=== PATIENT | female | born 1970 | race Caucasian/White ===

== ENCOUNTER 2016-12-11 02:07 | Inpatient (IN) | payer OTHER ==
--- NOTE | 2016-12-11 02:30 | PDOC ---
History of Present Illness <Pilar Horner - Last Filed: 12/11/16 06:20> - General History Source: Patient Exam Limitations: No Limitations - History of Present Illness Initial Comments: 12/11/16 06:17 The patient is a 46-year-old female with a significant past medical history of breast cancer with metastases to the lungs and liver diagnosed on 05/21/16 ( currently being treated with chemo by Dr. Pelaez at [facility]), and presents to the emergency department with chest pain since 11pm yesterday. She reports she had generalized pain in the thoracic region 2 days ago at 1am. She was given 7.5 mg morphine at the time by her sons for the generalized pain. She reports the chest pain is located in the mid-sternal and epigastric region, and is sharp and severe in nature. She reports mild radiation of the chest pain to her neck, bilateral arms, and abdomen. As per sons, she became agitated when the chest pain started, and they gave her 3.5 mg morphine with no significant relief of pain. The patient denies shortness of breath, headache and dizziness. The patient denies fever, chills, nausea, vomit, diarrhea and constipation. The patient denies dysuria, frequency, urgency and hematuria. Allergies: NKDA Past Surgical History: Brain tumor surgery (2 years ago) Social History: No toxic habits reported <Geri Mott - Last Filed: 12/11/16 06:27> - General Chief Complaint: Chest Pain Stated Complaint: CHEST PAIN Time Seen by Provider: 12/11/16 02:29 Past History <Pilar Horner - Last Filed: 12/11/16 06:20> <Geri Mott - Last Filed: 12/11/16 06:27> - Past Medical History Allergies/Adverse Reactions: Allergies Allergy/AdvReac Type Severity Reaction Status Date / Time No Known Allergies Allergy Unverified 11/18/13 12:30 Review of Systems - Review of Systems Able to Perform ROS?: Yes Comments:: 12/11/16 06:17 CONSTITUTIONAL: Absent: fever, chills, diaphoresis, generalized weakness, malaise, loss of appetite HEENT: Absent: rhinorrhea, nasal congestion, throat pain, throat swelling, difficulty swallowing, mouth swelling, ear pain, eye pain, visual changes CARDIOVASCULAR: Present: (+) chest pain Absent: syncope, palpitations, irregular heart rate, lightheadedness, peripheral edema RESPIRATORY: Absent: cough, shortness of breath, dyspnea with exertion, orthopnea, wheezing, stridor, hemoptysis GASTROINTESTINAL: Present: (+) abdominal pain Absent: abdominal distension, nausea, vomiting, diarrhea, constipation, melena, hematochezia GENITOURINARY: Absent: dysuria, frequency, urgency, hesitancy, hematuria, flank pain, genital pain MUSCULOSKELETAL: Absent: myalgia, arthralgia, joint swelling SKIN: Absent: rash, itching, pallor HEMATOLOGIC/IMMUNOLOGIC: Absent: easy bleeding, easy bruising, lymphadenopathy, frequent infections ENDOCRINE: Absent: unexplained weight gain, unexplained weight loss, heat intolerance, cold intolerance NEUROLOGIC: Absent: headache, focal weakness or paresthesias, dizziness, unsteady gait, seizure, mental status changes, bladder or bowel incontinence PSYCHIATRIC: Absent: anxiety, depression, suicidal or homicidal ideation, hallucinations. <Geri Mott - Last Filed: 12/11/16 06:27> *Physical Exam - Vital Signs Last Vital Signs Temp Pulse Resp BP Pulse Ox 99.9 F H 86 18 107/74 96 12/11/16 02:17 12/11/16 02:17 12/11/16 02:17 12/11/16 02:17 12/11/16 02:17 - Physical Exam Comments: 12/11/16 06:27 GENERAL: Afebrile. Well developed, well nourished. Awake, A&O x3. No acute distress. HEENT: Normocephalic, atraumatic. PERRLA, EOMI. No conjunctival pallor. (+) Icteric sclera. Moist mucous membranes. Oropharynx is clear. (+) Thrush in mouth. NECK: Supple. Full ROM. No JVD. Carotid pulses 2+ and symmetric, without bruits. No thyromegaly. No lymphadenopathy. CARDIOVASCULAR: (+) Tachycardic. Regular rhythm. No murmurs, rubs, or gallops. Distal pulses are 2+ and symmetric. (+) No chest pain with palpation. PULMONARY: No evidence of respiratory distress. Lungs clear to auscultation bilaterally. No wheezing, rales or rhonchi. ABDOMINAL: (+) Belly diffusely tender. Soft. Non-distended. No rebound or guarding. No organomegaly. Normoactive bowel sounds. MUSCULOSKELETAL (+) Muscle strength 4/5 throughout. Normal range of motion at all joints. No bony deformities or tenderness. No CVA tenderness. EXTREMITIES: No cyanosis. No clubbing. No pitting edema. No calf tenderness. SKIN: (+) Jaundiced skin. Warm and dry. Normal capillary refill. No rashes. NEUROLOGICAL: Alert, awake, appropriate. Cranial nerves 2-12 intact. No deficits to light touch and temperature in face, upper extremities and lower extremities. No motor deficits in the in face, upper extremities and lower extremities. Normoreflexic in the upper and lower extremities. Normal speech. Toes are down- going bilaterally. PSYCHIATRIC: Cooperative. Good eye contact. Appropriate mood and affect. <Geri Mott - Last Filed: 12/11/16 06:27> ED Treatment Course - LABORATORY CBC & Chemistry Diagram: 12/11/16 04:55 12/11/16 04:55 <Pilar Horner - Last Filed: 12/11/16 06:20> - LABORATORY CBC & Chemistry Diagram: 12/11/16 04:55 12/11/16 04:55 - ADDITIONAL ORDERS Additional order review: Laboratory Results 12/11/16 12/11/16 12/11/16 04:55 04:55 04:55 INR 1.59 H PTT (Actin FS) Sodium 157 H Potassium 3.7 Chloride 120 H Carbon Dioxide 28 Anion Gap 9 BUN 16 Creatinine 0.7 Creat Clearance w eGFR > 60 Random Glucose 362 H* Calcium 6.7 L* Total Bilirubin 6.3 H AST 768 H ALT 159 H Alkaline Phosphatase 709 H Creatine Kinase 95 Troponin I < 0.02 B-Natriuretic Peptide 425.23 H Total Protein 5.2 L Albumin 1.9 L 12/11/16 04:55 INR PTT (Actin FS) 39.2 H Sodium Potassium Chloride Carbon Dioxide Anion Gap BUN Creatinine Creat Clearance w eGFR Random Glucose Calcium Total Bilirubin AST ALT Alkaline Phosphatase Creatine Kinase Troponin I B-Natriuretic Peptide Total Protein Albumin 12/11/16 04:55 RBC 4.16 MCV 83.4 MCHC 33.5 RDW 19.7 H MPV 11.4 H Neutrophils % Y Lymphocytes % Y - Medications Given in the ED: ED Medications Discontinued Medications Generic Name Dose Route Start Last Admin Trade Name Freq PRN Reason Stop Dose Admin Sodium Chloride 1,000 ml 12/11/16 05:01 12/11/16 05:07 Normal Saline - IV 12/11/16 05:02 1,000 ml ONCE ONE Administration <Geri Mott - Last Filed: 12/11/16 06:27> Medical Decision Making - Medical Decision Making 12/11/16 06:00 Pt was diagnosed with breast cancer in May 2016. At that time the cancer had already metastasized to her lung and liver. Pt has been getting chemo with her docs at [facility], yet she continues to decomplensate. She lives with her 2 sons. SHe is jaundiced and weak and dehydrated and complaining of chest pain. Her labs are markedly abnormal. Pt has thrush in her mouth and likely in her esophagus. Her sons tell me that she barely eats. Pt will be admitted to the hospitalist for hydration and workup of her hyperbilirubinemia <Pilar Horner - Last Filed: 12/11/16 06:20> *DC/Admit/Observation/Transfer - Discharge Dispostion Admit: Yes <Pilar Horner - Last Filed: 12/11/16 06:20> - Attestations Scribe Attestion: 12/11/16 06:18 Documentation prepared by Geri Mott, acting as medical record technician for Pilar Horner MD. <Geri Mott - Last Filed: 12/11/16 06:27> Diagnosis at time of Disposition: Hyperbilirubinemia, Chest pain, Metastatic breast cancer, Lung metastases, Dehydration, Generalized weakness - Discharge Dispostion Condition at time of disposition: Guarded
[2016-12-11 02:33] VITALS: BMI 30.7
[2016-12-11] MEDS ORDERED: SODIUM CHLORIDE 0.9% 500 ML INFUS.BAG IV ONE (05:01)
[2016-12-11 05:17] LABS: MCHC 33.5 g/dl (32.0-36.0); MEAN CELL VOLUME 83.4 fl (80-96); MEAN PLT VOLUME 11.4 fl (7.5-11.1); PLATELET COUNT 70 K/MM3 (134-434); RDW 19.7 % (11.6-15.6); WHITE BLOOD COUNT 3.9 K/mm3 (4.0-10.0)
[2016-12-11 05:25] LABS: INR 1.59 (0.82-1.09); PROTHROMBIN TIME (PATIENT) 17.7 SEC (9.98-11.88)
[2016-12-11 05:34] LABS: ALBUMIN 1.9 g/dl (3.4-5.0); ANION GAP 9 (8-16); BILIRUBIN,TOTAL 6.3 mg/dL (0.2-1.0); CO2 28 mmol/L (21-32); CREATININE 0.7 mg/dL (0.55-1.02); SGPT/ALT 159 U/L (12-78); TOT PROT 5.2 g/dl (6.4-8.2)
[2016-12-11 05:36] LABS: ALK PHOS 709 U/L (45-117); TROPONIN I < 0.02 ng/ml (0.00-0.05)
[2016-12-11 05:38] LABS: SGOT/AST 768 U/L (15-37)
[2016-12-11 05:40] LABS: CALCIUM 6.7 mg/dL (8.5-10.1); GLUCOSE,RANDOM 362 mg/dL (74-106)
[2016-12-11 06:18] LABS: PLATELET COMMENT2 NO CLOTTING DETECTED; PLATELET ESTIMATE DECREASED (NORMAL)
[2016-12-11 06:19] LABS: ANISOCYTOSIS 1+; POLYCHROMASIA 1+
[2016-12-11] MEDS ORDERED: SODIUM CHLORIDE 1,000 ML IV STA (07:55)
[2016-12-11] MEDS ORDERED: SODIUM CHLORIDE 0.45% 1,000 ML IV SCH (08:45)
[2016-12-11 10:07] LABS: MCH 28.3 pg (25.7-33.7)
[2016-12-11 10:16] LABS: MCHC 33.9 g/dl (32.0-36.0); MEAN CELL VOLUME 83.4 fl (80-96); PLATELET COUNT 58 K/MM3 (134-434); RDW 19.9 % (11.6-15.6); WHITE BLOOD COUNT 3.5 K/mm3 (4.0-10.0)
[2016-12-11 10:46] LABS: ALBUMIN 1.8 g/dl (3.4-5.0); ANION GAP 7 (8-16); BILIRUBIN,TOTAL 6.2 mg/dL (0.2-1.0); CO2 27 mmol/L (21-32); CREATININE 0.9 mg/dL (0.55-1.02); PHOSPHOROUS 1.4 mg/dL (2.5-4.9); SGPT/ALT 141 U/L (12-78)
[2016-12-11 10:47] LABS: ALK PHOS 669 U/L (45-117)
[2016-12-11 10:49] LABS: TROPONIN I < 0.02 ng/ml (0.00-0.05)
[2016-12-11 10:50] LABS: PLATELET ESTIMATE DECREASED (NORMAL)
[2016-12-11 10:51] LABS: MAGNESIUM 2.8 mg/dL (1.8-2.4); SGOT/AST 679 U/L (15-37)
[2016-12-11 11:01] LABS: CALCIUM 6.5 mg/dL (8.5-10.1); GLUCOSE,RANDOM 311 mg/dL (74-106)
--- NOTE | 2016-12-11 11:38 | HP ---
CHIEF COMPLAINT: " Chest pain, sob" PCP: Dr. Latanya Galvez (Hematology/Oncology) ([phone]) HISTORY OF PRESENT ILLNESS: Patient is a 46-year-old female with a significant past medical history of breast cancer with metastases to the lungs and liver diagnosed on 05/21/16 (currently being treated with chemo by Dr. Pelaez at [facility]) presented to the ED with the chief complaints of chest pain and sob that started last night at 11pm. As per the son (at bed side), says that patient started complaining of left sided chest pain, pressure type, 10/10 in intensity , lasting for an hour, non radiating associated with nausea, sob and palpitations. Was very anxious, wanted to go to the hospital hence brought her here. Before coming to the hospital, son gave PO Morphine as directed but the pain didn't resolve. Patient also complaints of abdominal pain, located in the Left upper and lower quadrant, non radiating, associated with nausea but no vomiting. Last bowel movement yesterday, non bloody. Bladder habit normal. Denies fever, chills, rigors, sweating, headache, dizziness, loc, seizure. As per the RN, she desaturated to 81 % in RA, was confused in the ER, wanting to go to the hospital. By the time, I saw the patient this morning, she was not confused and her saturation was normal at RA. Spoke with patients Oncologist Dr. Pelaez over the phone who said that patient came in to his clinic with breast cancer mets to lungs and liver, was given several different chemotherapy, last chemo was on 12/05/16 received Adriamycin with one other drug, started having transaminitis with a T. bili of 2.5, patient has been complaining of abdominal pain, nausea, vomiting, was admitted for pain control and sent home. Dr. Pelaez said that palliative team was on board, patients son has been explained of the poor prognosis and they seem to understand. He also mentioned that patient has been deteriorating since 3 weeks now. ER course was notable for: (1) Tmax- 101.6 F; Neutropenic 3.9, transaminitis, INR 1.59, Hypernatremic (2) CXR (3) IV Nacl Recent Travel: None PAST MEDICAL HISTORY: Breast cancer metastases to the lungs and liver PAST SURGICAL HISTORY: Brain surgery 2 years ago Social History: Smoking: Denies Alcohol:Denies Drugs: Denies Family History: Unknown Allergies No Known Allergies Allergy (Unverified 11/18/13 12:30) HOME MEDICATIONS: Morphine 7.5mg Q4H REVIEW OF SYSTEMS CONSTITUTIONAL: Present: generalized weakness,malaise, nausea Absent: fever, chills, diaphoresis, loss of appetite, weight change HEENT: Absent: rhinorrhea, nasal congestion, throat pain, throat swelling, difficulty swallowing, mouth swelling, ear pain, eye pain, visual changes CARDIOVASCULAR: Absent: chest pain, syncope, palpitations, irregular heart rate, lightheadedness , peripheral edema RESPIRATORY: Absent: cough, shortness of breath, dyspnea with exertion, orthopnea, wheezing, stridor, hemoptysis GASTROINTESTINAL: Absent: abdominal pain, abdominal distension, nausea, vomiting, diarrhea, constipation, melena, hematochezia GENITOURINARY: Absent: dysuria, frequency, urgency, hesitancy, hematuria, flank pain, genital pain MUSCULOSKELETAL: Absent: myalgia, arthralgia, joint swelling, back pain, neck pain SKIN: Absent: rash, itching, pallor HEMATOLOGIC/IMMUNOLOGIC: Absent: easy bleeding, easy bruising, lymphadenopathy, frequent infections ENDOCRINE: Absent: unexplained weight gain, unexplained weight loss, heat intolerance, cold intolerance NEUROLOGIC: Absent: headache, focal weakness or paresthesias, dizziness, unsteady gait, seizure, mental status changes, bladder or bowel incontinence PSYCHIATRIC: Absent: anxiety, depression, suicidal or homicidal ideation, hallucinations. PHYSICAL EXAMINATION Vital Signs - 24 hr 12/11/16 12/11/16 12/11/16 06:59 07:00 07:20 Temperature 98.7 F Pulse Rate 105 H Pulse Rate [ 105 H Apical] Respiratory 18 Rate Blood Pressure 100/74 [Right Arm] O2 Sat by Pulse 92 L 92 L 96 Oximetry (%) 12/11/16 12/11/16 07:28 10:12 Temperature Pulse Rate Pulse Rate [ 108 H 111 H Apical] Respiratory 30 H 30 H Rate Blood Pressure 102/55 112/66 [Right Arm] O2 Sat by Pulse 96 96 Oximetry (%) GENERAL: Young female, lying comfortably in bed, Awake, alert, and fully oriented, in no acute distress. HEAD: Normal with no signs of trauma. EYES: EOM intact, mild pallor and icteric + EARS, NOSE, THROAT: Ears normal. Moist mucous membranes. NECK: Supple. LUNGS: B/L Breath sounds equal, clear to auscultation bilaterally. No wheezes, and no crackles. No accessory muscle use. HEART: Tachycardic, Regular rate and rhythm, normal S1 and S2 without murmur, rub or gallop. ABDOMEN: Soft, tenderness over the left upper and lower quadrant, not distended , normoactive bowel sounds, no guarding, no rebound, no masses. No hepatomegaly or splenomegaly. MUSCULOSKELETAL: Normal range of motion at all joints. No bony deformities or tenderness. No CVA tenderness. UPPER EXTREMITIES: 2+ pulses, warm, well-perfused. No cyanosis. No clubbing. No peripheral edema. LOWER EXTREMITIES: 2+ pulses, warm, well-perfused. No calf tenderness. No peripheral edema. NEUROLOGICAL: No facial droop, Bulk/tone-normal, power- 5/5 in all extremities. Cranial nerves II-XII intact. Normal speech. Gait not observed. PSYCHIATRIC: Cooperative. Good eye contact. Appropriate mood and affect. SKIN: Warm, dry, normal turgor, no rashes or lesions noted, normal capillary refill. Laboratory Results - last 24 hr 12/11/16 12/11/16 12/11/16 07:53 10:00 10:00 WBC 3.5 L RBC 3.98 Hgb 11.2 Hct 33.1 MCV 83.4 MCHC 33.9 RDW 19.9 H Plt Count 58 L MPV 11.0 Neutrophils % 45.0 Lymphocytes % 51.0 H Monocytes % 1.0 L Eosinophils % 2.0 Basophils % 1.0 Differential Comment Manual diff done Platelet Estimate Decreased Sodium 156 H Potassium 3.5 Chloride 122 H Carbon Dioxide 27 Anion Gap 7 L BUN 15 Creatinine 0.9 D Creat Clearance w eGFR > 60 POC Glucometer [phone] Random Glucose 311 H* Calcium 6.5 L* Phosphorus 1.4 L Magnesium 2.8 H Total Bilirubin 6.2 H AST 679 H ALT 141 H Alkaline Phosphatase 669 H Creatine Kinase Troponin I Total Protein 5.0 L Albumin 1.8 L 12/11/16 10:00 WBC RBC Hgb Hct MCV MCHC RDW Plt Count MPV Neutrophils % Lymphocytes % Monocytes % Eosinophils % Basophils % Differential Comment Platelet Estimate Sodium Potassium Chloride Carbon Dioxide Anion Gap BUN Creatinine Creat Clearance w eGFR POC Glucometer Random Glucose Calcium Phosphorus Magnesium Total Bilirubin AST ALT Alkaline Phosphatase Creatine Kinase 97 Troponin I < 0.02 Total Protein Albumin ASSESSMENT/PLAN: Patient is a 46-year-old female with a significant past medical history of breast cancer with metastases to the lungs and liver diagnosed on 05/21/16 (currently being treated with chemo by Dr. Pelaez at [facility]) presented to the ED with the chief complaints of chest pain and sob that started last night at 11pm. # Chest pain-Now resolved r/o ACS c/o left sided chest pain, pressure type, lasting for an hour EKG- No acute changes; Troponin x 2 negative Echo in am r/o PE- would consider CTA Duplex of the lower extremities-No DVT in both legs. # Hypernatremia likely due to dehydration Na-157, corrected sodium is 159.6 Continue 1/2 NS @ 125mls.hr # Transaminitis Most likely secondary to recent chemo and liver mets Stat ammonia level and if it is increased, will start Lactulose # Breast cancer mets to liver and lungs Last chemo on 12/06/16, patient has been rapidly deteriorating since 3 weeks. For Pain control IV Morphine 1mg Q4H. Oncology consult requested Palliative care team on board Poor prognosis # Transient confusion-resolved CT head didn't show any acute pathology Brain MRI ordered to r/o mets # Fever r/o infection Temp-101.6 F, r/o UTI, pneumonia Unlikely pneumonia Urine culture/blood culture ordered # Hypocalcemia Calcium-6.5, corrected leslee is 8.7 # FEN 1/2 NS @ 125mls/hr Electrolytes to be repeated Regular diet # Prophylaxis For DVT: High risk, Heparin 5000 U sq For GI: Not indicated # Code Status: Full Code, discuss with the son regarding DNR/DNI # Dispo: Admitted in Tele, continuous cardiac monitoring. Duration of stay unknown. Illness, Investigation and Plan of care explained to the patient and her son. They verbalized understanding. Case discussed with Dr. Pringle. Visit type - Emergency Visit Emergency Visit: Yes ED Registration Date: 12/11/16 Care time: The patient presented to the Emergency Department on the above date and was hospitalized for further evaluation of their emergent condition. - New Patient This patient is new to me today: Yes Date on this admission: 12/11/16 - Critical Care Critical Care patient: No
[2016-12-11] MEDS: ACETAMINOPHEN 325 MG TABLET (FP) PO PRN (12:40)
[2016-12-11] MEDS: morphine CARPU-JECT 2 MG/1 ML DISP.SYRIN IVPUSH PRN (12:40)
[2016-12-11] MEDS ORDERED: HEPARIN NA (PORCINE) 5,000 UNITS/ML 1ML VIAL SQ SCH (14:00)
[2016-12-11] MEDS ORDERED: ENOXAPARIN NA (PORCINE) 80 MG/0.8 ML DISP.SYRIN SQ ONE (15:52)
[2016-12-11] MEDS ORDERED: LACTULOSE 20 GM/30 ML UDC (FOR ORAL USE ONLY) PO PRN (17:04)
[2016-12-11] MEDS ORDERED: LACTULOSE 20 GM/30 ML UDC (FOR ORAL USE ONLY) PO ONE (17:04)
--- NOTE | 2016-12-11 17:25 | EKG ---
Test Reason : Blood Pressure : / mmHG Vent. Rate : 107 BPM Atrial Rate : 107 BPM P-R Int : 128 ms QRS Dur : 080 ms QT Int : 408 ms P-R-T Axes : 034 -16 034 degrees QTc Int : 544 ms SINUS TACHYCARDIA T WAVE ABNORMALITY, CONSIDER ANTERIOR ISCHEMIA PROLONGED QT ABNORMAL ECG WHEN COMPARED WITH ECG OF 09-MAR-2006 13:09, VENT. RATE HAS INCREASED BY 47 BPM NON-SPECIFIC CHANGE IN ST SEGMENT IN ANTERIOR LEADS T WAVE INVERSION NOW EVIDENT IN ANTERIOR LEADS QT HAS LENGTHENED Confirmed by BLAYNE LOPEZ, ЕЛЕНА ([id number]) on 12/11/2016 5:25:05 PM Referred By: Confirmed By:ЕЛЕНА CISNEROS MD
[2016-12-11 17:36] LABS: ANION GAP 10 (8-16); CO2 23 mmol/L (21-32); CREATININE 0.7 mg/dL (0.55-1.02)
[2016-12-11 17:40] LABS: GLUCOSE,RANDOM 335 mg/dL (74-106)
--- NOTE | 2016-12-11 17:46 | PN ---
Teaching Attending Note Name of Resident: Symone Castano ATTENDING PHYSICIAN STATEMENT I saw and evaluated the patient. I reviewed the resident's note and discussed the case with the resident. I agree with the resident's findings and plan as documented. hx as per son SUBJECTIVE:46yo F c/o sob and CP started suddenly last night. son gave her morphine with no resolution of symptoms. SOB and CP has resolved since arrival to the hospital. as per son her mental status has been waxing/waning over the past few days and noted her to be jaundice starting 2 days ago. Last chemo was last week. currently asymptomatic. OBJECTIVE: Last Vital Signs Temp Pulse Resp BP Pulse Ox 99.1 F 110 H 20 115/70 97 12/11/16 14:00 12/11/16 14:00 12/11/16 14:00 12/11/16 14:00 12/11/16 12:21 General NAD, scleral icterus CV S1 s2 tachycardic Lungs CTA B/L anteriorly ABdomen firm, multiple masses, + distention normoactive BS, nontender no guarding Extremities 1+ pedal edema no calf tenderness ASSESSMENT AND PLAN: 46yo F with PMH breast cancer with mets liver/lung presented to the ER with SOB and CP 1. SOB- progression of disease vs PE but can not rule out PNA. high risk for PE. PESI 197. will start lovenox now. CTA pending. currently saturating 96% on 2L NC. 1 fever spike 101. will wait for CTA to further evaluate for infiltrate vs progression. 2. CP- likely related to difficulty breathing. continuous cardiac monitoring. cardiac enzymes Q6H x2. pain is now resolved 3. Hypernatremia- Corrected Na 163. received NS x2L in the ER and now switched to 1/2NS as no longer found to be dehydrated. Fluid deficit 5.6L check Uosm, Sharri and Sosm. monitor labs Q4H. Goal to decrease by 10 in 24H period. 4. Elevated total bili- likely due to progression of disease. CT abdomen/pelvis to further evaluate. as per oncologist last rene level was 2.5. ammonia level pending. will start lactulose. monitor for 2-3 BM daily 5. Acute toxic/metabolic encephalopathy- due to hepatic encephalopathy vs hypernatremia. management as per above 6. Pseudohypocalcemia- Corrected Ca 8.3 7. breast cancer with mets- on CT scan appears to have extension to the vertebrae. as per son not known to have extended to bone. oncology consult. 8. Poor overall prognosis. d/w son with proof load mechanic. explained poor overall prognosis and progression of disease despite chemotherapy. will d/w mother tonight about goals of care. palliative care consult
[2016-12-11] MEDS: ENOXAPARIN NA (PORCINE) 80 MG/0.8 ML DISP.SYRIN SQ SCH (18:00)
[2016-12-11 22:06] LABS: ANION GAP 8 (8-16); CO2 26 mmol/L (21-32); CREATININE 0.8 mg/dL (0.55-1.02)
[2016-12-11 22:12] LABS: GLUCOSE,RANDOM 346 mg/dL (74-106)
[2016-12-11 22:13] LABS: CALCIUM 6.6 mg/dL (8.5-10.1)
[2016-12-11] MEDS: INSULIN SLIDING SCALE (NOVOLOG) 1 VIAL SQ SCH (23:22)
[2016-12-12] MEDS: ENOXAPARIN NA (PORCINE) 80 MG/0.8 ML DISP.SYRIN SQ SCH ×2 (04:06→15:33)
[2016-12-12] MEDS: INSULIN SLIDING SCALE (NOVOLOG) 1 VIAL SQ SCH ×4 (06:24→21:41)
[2016-12-12] MEDS ORDERED: DEXTROSE 5%-0.45% SALINE 1,000 ML IV SCH (06:45)
[2016-12-12] MEDS: DEXTROSE 5%-WATER - 1,000 ML IV SCH (06:58)
[2016-12-12] MEDS ORDERED: INSULIN SLIDING SCALE (NOVOLOG) 1 VIAL SQ SCH (07:00)
[2016-12-12 07:45] LABS: INR 2.31 (0.82-1.09); PROTHROMBIN TIME (PATIENT) 25.9 SEC (9.98-11.88)
[2016-12-12 07:47] LABS: ALBUMIN 1.6 g/dl (3.4-5.0); ANION GAP 8 (8-16); CO2 26 mmol/L (21-32); CREATININE 0.7 mg/dL (0.55-1.02); GLUCOSE,RANDOM 187 mg/dL (74-106); PHOSPHOROUS 1.4 mg/dL (2.5-4.9); SGPT/ALT 99 U/L (12-78)
[2016-12-12 07:52] LABS: ALK PHOS 523 U/L (45-117); BILIRUBIN,TOTAL 5.7 mg/dL (0.2-1.0)
[2016-12-12 08:25] LABS: MAGNESIUM 2.5 mg/dL (1.8-2.4); SGOT/AST 403 U/L (15-37)
[2016-12-12 08:31] LABS: MCH 28.1 pg (25.7-33.7); MEAN CELL VOLUME 82.6 fl (80-96); MEAN PLT VOLUME 11.3 fl (7.5-11.1); PLATELET COUNT 45 K/MM3 (134-434); RDW 19.6 % (11.6-15.6); WHITE BLOOD COUNT 3.2 K/mm3 (4.0-10.0)
[2016-12-12 09:46] LABS: OSMOLALITY,SERUM 327 mosm/kg (278-305)
[2016-12-12] MEDS ORDERED: NAPH,MB-DB/K PH,MBDB POWDER PACKET PO ONE (16:45)
--- NOTE | 2016-12-12 16:47 | PN ---
Teaching Attending Note Name of Resident: Abad Adams ATTENDING PHYSICIAN STATEMENT I saw and evaluated the patient. I reviewed the resident's note and discussed the case with the resident. I agree with the resident's findings and plan as documented. SUBJECTIVE:states breathing has improved. no recurrent episodes of CP. denies CP , SOB,fever, chills, N/V/C/D. 2 BM today OBJECTIVE: Last Vital Signs Temp Pulse Resp BP Pulse Ox 99.2 F 104 H 18 92/64 94 L 12/12/16 14:30 12/12/16 14:30 12/12/16 14:30 12/12/16 14:30 12/12/16 06:00 General NAD, scleral icterus CV S1 s2 tachycardic Lungs CTA B/L anteriorly ABdomen firm, multiple masses, + distention normoactive BS, nontender no guarding Extremities 1+ pedal edema no calf tenderness, no asterixes ASSESSMENT AND PLAN: 46yo F with PMH breast cancer with mets liver/lung presented to the ER with SOB and CP 1. SOB- progression of disease. CTA done and negative for PE. showing progression of lung mets. cont supplemental oxygen to maintain spO2 > 905. 2. CP- likely related to difficulty breathing. continuous cardiac monitoring. cardiac enzymes Q6H x2. pain is now resolved 3. Hypernatremia- Corrected Na 154. currently on D5w. will cont to trend labs Q6H. re-ordered urine studies. Serum Osm high. 4. Elevated total bili- likely due to progression of disease. CT abdomen/pelvis confirm progression of liver mets. cont lactulose. monitor for 2-3 BM daily 5. Acute toxic/metabolic encephalopathy- due to hepatic encephalopathy vs hypernatremia. improved cognition 6. hypophosatemia- neutraphos 7. breast cancer with mets (lung, liver, bone)- Brain MRI showing 20-30 lesions consistent with mets in post fossa and supratentorial compartment. Spoke with Oncologist Dr Loza about current finding and likely candidate for brain radiation. will defer til patient is medically optimized. was known to have bone mets previously. received adriamycin and cytotoxin last week. pending oncology consult. 8. Poor overall prognosis. d/w son with court interpreter. discussed results with both sons and family friend. requested family to be transferred to [place] under Dr Loza, however he does not feel like it is necessary at this time. advises to correct hyponatremia and he will f/u with as outpatient and initiate radiation if able to. palliative care consult can d/c pig lead melter helper
[2016-12-12] MEDS ORDERED: POTASSIUM CHLORIDE ORAL LIQUID 20 MEQ/15 ML PO ONE (17:18)
[2016-12-12] MEDS ORDERED: FUROSEMIDE 40 MG TABLET (FP) PO ONE (17:20)
--- NOTE | 2016-12-12 17:58 | PN ---
Physical Exam: SUBJECTIVE: Patient seen and examined Patient states chest pain and breathing have improved. Endorses mild abdominal pain. Denies any fever, chills, chest pain, shortness of breath, nausea, vomiting, diarrhea, and constipation. OBJECTIVE: Vital Signs Period Temp Pulse Resp BP Sys/Valerio Pulse Ox Last 24 Hr 98.9 F-100.4 F 104-111 18-22 92-116/63-70 94-96 GENERAL: The patient is awake, alert, and fully oriented, in mild distress. HEAD: Normal with no signs of trauma. EYES: PERRL, extraocular movements intact, sclera icterus NECK: Trachea midline, supple, no JVD LUNGS: Anterior lungs clear to auscultation bilaterally, no wheezes, no crackles , no accessory muscle use. Posterior lungs could not be auscultated HEART: Tachycardia, Regular rhythm, S1, S2 without murmur, rub or gallop. ABDOMEN: Soft, minimal tenderness, distended, normoactive bowel sounds, no guarding, no rebound Laboratory Results - last 24 hr 12/11/16 12/11/16 12/12/16 17:15 20:55 04:20 WBC RBC Hgb Hct MCV MCHC RDW Plt Count MPV INR Sodium 154 H 153 H 156 H Potassium 3.6 3.5 Chloride 121 H 119 H Carbon Dioxide 23 26 Anion Gap 10 8 BUN 15 15 Creatinine 0.7 D 0.8 Creat Clearance w eGFR POC Glucometer Random Glucose 335 H* 346 H* Serum Osmolality 327 H Calcium 6.0 L* 6.6 L* Phosphorus Magnesium Total Bilirubin AST ALT Alkaline Phosphatase Total Protein Albumin 12/12/16 12/12/16 12/12/16 05:35 05:35 05:35 WBC 3.2 L RBC 3.95 Hgb 11.1 Hct 32.6 MCV 82.6 MCHC 34.0 RDW 19.6 H Plt Count 45 L D MPV 11.3 H INR 2.31 H D Sodium 154 H Potassium 3.2 L Chloride 120 H Carbon Dioxide 26 Anion Gap 8 BUN 13 Creatinine 0.7 Creat Clearance w eGFR > 60 POC Glucometer Random Glucose 187 H D Serum Osmolality Calcium 7.0 L Phosphorus 1.4 L Magnesium 2.5 H Total Bilirubin 5.7 H AST 403 H D ALT 99 H D Alkaline Phosphatase 523 H D Total Protein 5.0 L Albumin 1.6 L 12/12/16 12/12/16 12/12/16 05:37 08:45 17:03 WBC RBC Hgb Hct MCV MCHC RDW Plt Count MPV INR Sodium 154 H Potassium Chloride Carbon Dioxide Anion Gap BUN Creatinine Creat Clearance w eGFR POC Glucometer 189 269 Random Glucose Serum Osmolality Calcium Phosphorus Magnesium Total Bilirubin AST ALT Alkaline Phosphatase Total Protein Albumin Active Medications Generic Name Dose Route Start Last Admin Trade Name Freq PRN Reason Stop Dose Admin Acetaminophen 650 mg 12/11/16 12:26 12/11/16 12:40 Tylenol - PO 650 mg Q6H PRN Administration FEVER OR PAIN Enoxaparin Sodium 40 mg 12/13/16 10:00 Lovenox - SQ DAILY JESSY Dextrose 1,000 mls @ 42 mls/hr 12/12/16 07:00 12/12/16 06:58 D5w - IV 42 mls/hr ASDIR JESSY Administration Insulin Aspart 1 vial 12/11/16 23:15 12/12/16 12:00 Novolog Vial Sliding Scale - SQ Not Given ACHS [facility] Protocol Lactulose 20 gm 12/11/16 17:04 Cephulac (Oral Use) PO TID PRN CONSTIPATION Morphine Sulfate 1 mg 12/11/16 12:26 12/11/16 12:40 Morphine Injection - IVPUSH 1 mg Q4H PRN Administration PAIN Microbiology 12/11/16 15:08 Blood Culture - Preliminary Blood - Peripheral Venous NO GROWTH OBTAINED AFTER 24 HOURS, INCUBATION TO CONTINUE FOR 4 DAYS. 12/11/16 15:00 Blood Culture - Preliminary Blood - Peripheral Venous NO GROWTH OBTAINED AFTER 24 HOURS, INCUBATION TO CONTINUE FOR 4 DAYS. ASSESSMENT/PLAN: 46 year old F with PMH of breast cancer with mets to liver and lungs currently on chemotherapy presented to the ED for chest pain and shortness of breath admitted for R/O PE and possible progression of her cancer. 1. Chest Pain: -Has since resolved -Initial Chest CT showed pulmonary and hepatic lesions with lymphadenopathy -EKG shows no acute changes and troponins x2 negative -CTA shows right upper lobe mass, lymphadenopathy, but no PE Plan: -Continue cardiac monitoring 2. Shortness of breath -Likely due to progression of her disease -CTA shows right upper lobe mass, lymphadenopathy, but no PE Plan: -Continue O2 2L NC 3. Hypernatremia -Corrected Na 156 -Currently on D5W 1000 mL IV Plan: -Continue to trend labs Q6 hrs 4. Elevated total bilirubin -T bili- 5.7 -CT abdomen shows multiple liver mets -Progression of her cancer Plan: -Continue lactulose 20 mg PO TID PRN and titrate for 2-3 bowel movements daily 5. Breast cancer with mets to liver, lungs, bone, and brain -Brain MRI shows multiple small lesions in the brain consistent with metastasis -Discussed poor prognosis with family using a interpreter and translator -Patient's son wants patient to be transferred to [place] -Dr. Jones spoke with her oncologist who doesn't believe that transfer is needed currently and should be medically optimized prior to discharge Plan: -Will f/u with her oncologist as an outpatient after medically optimized -Continue Morphine 1mg IVP -Continue Tylenol 650 mg PO Q6H PRN 6. Hyperglycemia -Improving Plan: -Continue BGM ACHS -Continue ISS 7. Hypokalemia -Potassium decreased to 3.2 Plan: -Patient was given 40 meq of PO potassium chloride oral liquid 8. DVT Prophylaxis Plan: -Lovenox 40 mg SQ daily Visit type - Emergency Visit Emergency Visit: No - New Patient This patient is new to me today: Yes Date on this admission: 12/12/16 - Critical Care Critical Care patient: No
--- NOTE | 2016-12-12 21:04 | CONSULT ---
Consult - text type - Consultation Consultation Note: The patient is a 46-year-old female with a significant past medical history of breast cancer with metastases to the lungs and liver diagnosed on 05/21/16 ( currently being treated with chemo by Dr. Pelaez at [facility]), recent adriamycin combination,and presents to the emergency department with chest pain . She reports she had generalized pain in the thoracic region 2 days ago at 1am. She was given 7.5 mg morphine at the time by her sons for the generalized pain. The patient denies shortness of breath, headache and dizziness. The patient denies fever, chills, nausea, vomit, diarrhea and constipation. The patient denies dysuria, frequency, urgency and hematuria. Allergies: NKDA Past Surgical History: Brain tumor surgery (2 years ago) Social History: No toxic habits reported Allergies/Adverse Reactions: Allergies Allergy/AdvReac Type Severity Reaction Status Date / Time No Known Allergies Allergy Unverified 11/18/13 12:30 Cor: RSR, No murmurs, No gallops Lungs: Clear to P&A Abd: Soft, Normal bowel sounds, No organomegaly Ext:No significant edema Abnormal Lab Results 12/11/16 12/11/16 12/12/16 17:15 20:55 04:20 WBC RDW Plt Count MPV INR Sodium 154 H 153 H 156 H Potassium Chloride 121 H 119 H Random Glucose 335 H* 346 H* Serum Osmolality 327 H Calcium 6.0 L* 6.6 L* Phosphorus Magnesium Total Bilirubin AST ALT Alkaline Phosphatase Total Protein Albumin 12/12/16 12/12/16 12/12/16 05:35 05:35 05:35 WBC 3.2 L RDW 19.6 H Plt Count 45 L D MPV 11.3 H INR 2.31 H D Sodium 154 H Potassium 3.2 L Chloride 120 H Random Glucose 187 H D Serum Osmolality Calcium 7.0 L Phosphorus 1.4 L Magnesium 2.5 H Total Bilirubin 5.7 H AST 403 H D ALT 99 H D Alkaline Phosphatase 523 H D Total Protein 5.0 L Albumin 1.6 L 12/12/16 08:45 WBC RDW Plt Count MPV INR Sodium 154 H Potassium Chloride Random Glucose Serum Osmolality Calcium Phosphorus Magnesium Total Bilirubin AST ALT Alkaline Phosphatase Total Protein Albumin Active Medications Generic Name Dose Route Start Last Admin Trade Name Freq PRN Reason Stop Dose Admin Acetaminophen 650 mg 12/11/16 12:26 12/11/16 12:40 Tylenol - PO 650 mg Q6H PRN Administration FEVER OR PAIN Enoxaparin Sodium 40 mg 12/13/16 10:00 Lovenox - SQ DAILY JESSY Dextrose 1,000 mls @ 42 mls/hr 12/12/16 07:00 12/12/16 06:58 D5w - IV 42 mls/hr ASDIR JESSY Administration Insulin Aspart 1 vial 12/11/16 23:15 12/12/16 18:10 Novolog Vial Sliding Scale - SQ 6 units ACHS JESSY Administration Protocol Lactulose 20 gm 12/11/16 17:04 Cephulac (Oral Use) PO TID PRN CONSTIPATION Morphine Sulfate 1 mg 12/11/16 12:26 12/11/16 12:40 Morphine Injection - IVPUSH 1 mg Q4H PRN Administration PAIN A/P 46 y/o patient with advanced metastatic breast cancer, diagnosed 05/27, recently received adriamycin based chemotherapy, now with worsening liver function, brain mets bone mets Primary team discussed with dr. Pelaez discussed with patient vis distance education coordinator. she understands her overall poor prognosis. she wishes to go to [facility] to meet her mother. hyponatremia/worsening edema/liver function f/u cultures/urine cx empiric cultures
[2016-12-12] MEDS: ACETAMINOPHEN 325 MG TABLET (FP) PO PRN (21:36)
[2016-12-12] MEDS: LEVOFLOXACIN 500 MG IVPB 100 ML IVPB SCH (22:18)
[2016-12-12 22:36] LABS: ANION GAP 10 (8-16); CO2 24 mmol/L (21-32); CREATININE 0.7 mg/dL (0.55-1.02); GLUCOSE,RANDOM 208 mg/dL (74-106)
[2016-12-12 22:39] LABS: CALCIUM 6.4 mg/dL (8.5-10.1)
[2016-12-13] MEDS: morphine CARPU-JECT 2 MG/1 ML DISP.SYRIN IVPUSH PRN ×2 (04:16→22:35)
[2016-12-13] MEDS: INSULIN SLIDING SCALE (NOVOLOG) 1 VIAL SQ SCH ×4 (06:23→21:49)
[2016-12-13] MEDS: DEXTROSE 5%-WATER - 1,000 ML IV SCH ×3 (06:24→15:04)
[2016-12-13 07:38] LABS: MCH 27.8 pg (25.7-33.7); MCHC 33.6 g/dl (32.0-36.0); MEAN CELL VOLUME 82.8 fl (80-96); MEAN PLT VOLUME 10.2 fl (7.5-11.1); RDW 19.9 % (11.6-15.6); WHITE BLOOD COUNT 3.2 K/mm3 (4.0-10.0)
[2016-12-13 09:40] LABS: ALBUMIN 1.5 g/dl (3.4-5.0); ANION GAP 9 (8-16); BILIRUBIN,TOTAL 5.2 mg/dL (0.2-1.0); CO2 24 mmol/L (21-32); CREATININE 0.7 mg/dL (0.55-1.02); GLUCOSE,RANDOM 232 mg/dL (74-106); PHOSPHOROUS 1.4 mg/dL (2.5-4.9); SGPT/ALT 79 U/L (12-78); TOT PROT 4.5 g/dl (6.4-8.2)
[2016-12-13 09:41] LABS: ALK PHOS 474 U/L (45-117)
[2016-12-13 09:45] LABS: MAGNESIUM 2.3 mg/dL (1.8-2.4); SGOT/AST 299 U/L (15-37)
[2016-12-13 09:48] LABS: CALCIUM 5.8 mg/dL (8.5-10.1)
[2016-12-13] MEDS ORDERED: ENOXAPARIN NA (PORCINE) 40 MG/0.4 ML DISP.SYRIN SQ SCH (10:00)
[2016-12-13 11:47] LABS: PLATELET COUNT 74 K/MM3 (134-434); PLATELET ESTIMATE DECREASED (NORMAL)
--- NOTE | 2016-12-13 11:47 | PN ---
Teaching Attending Note Name of Resident: Abad Adams ATTENDING PHYSICIAN STATEMENT I saw and evaluated the patient. I reviewed the resident's note and discussed the case with the resident. I agree with the resident's findings and plan as documented. SUBJECTIVE:asymptomatic. denies CP, SOB,fever, chills, cough, N/V/C/D, BRBPR or melena OBJECTIVE: Last Vital Signs Temp Pulse Resp BP Pulse Ox 98.3 F 89 18 106/62 96 12/13/16 06:00 12/13/16 06:00 12/13/16 06:00 12/13/16 06:00 12/12/16 21:00 General NAD, scleral icterus CV S1 s2 RRR no murmur/rub/gallop Lungs CTA B/L anteriorly no crackles ABdomen firm, multiple masses, + distention normoactive BS, nontender no guarding Extremities trace pedal edema no calf tenderness, no asterixes ASSESSMENT AND PLAN: 46yo F with PMH breast cancer with mets liver/lung presented to the ER with SOB and CP 1. SOB- progression of disease. CTA done and negative for PE. showing progression of lung mets. empiric levaquin started by oncologist.day 2. cont supplemental oxygen to maintain spO2 > 905. 2. CP- likely related to difficulty breathing. continuous cardiac monitoring. cardiac enzymes Q6H x2. pain is now resolved. no recurrent cp. 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 Hypernatremia- Corrected Na 151. received lasix yesterday, will give additional dose, increased D5w to 75cc/H. repeat Na level in afternoon. still awaiting urine studies. 4. Elevated total bili- likely due to progression of disease. CT abdomen/pelvis confirm progression of liver mets. slowly trending down. cont lactulose. monitor for 2-3 BM daily 5. Acute toxic/metabolic encephalopathy- due to hepatic encephalopathy vs hypernatremia.mental status at baseline 6. hypophosatemia- neutraphos 7. Hypocalcemia- Corrected Ca 7.8. start oral supplementation 8. Normocytic anemia- likely dilutional component, no signs of bleeding. will repeat cbc in afternoon 9 breast cancer with mets (lung, liver, bone)- Brain MRI showing 20-30 lesions consistent with mets in post fossa and supratentorial compartment. Spoke with Oncologist Dr Loza about current finding and likely candidate for brain radiation. will defer til patient is medically optimized. was known to have bone mets previously. received adriamycin and cytotoxin last week. pending oncology consult. 10. DVT ppx- lovenox 11. Poor overall prognosis.
[2016-12-13 11:48] LABS: ANISOCYTOSIS 1+
[2016-12-13] MEDS ORDERED: FUROSEMIDE 20 MG TABLET (FP) PO ONE (12:30)
[2016-12-13] MEDS ORDERED: NAPH,MB-DB/K PH,MBDB POWDER PACKET PO ONE (12:45)
[2016-12-13] MEDS: CALCIUM CARBONATE 650 MG TABLET PO SCH (13:05)
--- NOTE | 2016-12-13 15:22 | PN ---
Physical Exam: SUBJECTIVE: Patient seen and examined No acute events overnight. Mild foot discomfort otherwise resting comfortably in bed. Denies chest pain, shortness of breath, fever, chills, nausea, vomiting , diarrhea, constipation. OBJECTIVE: Vital Signs Period Temp Pulse Resp BP Sys/Valerio Pulse Ox Last 24 Hr 98.1 F-99.5 F 89-109 18-20 81-116/55-75 96 GENERAL: The patient is awake, alert, and fully oriented, in no acute distress. HEAD: Normal with no signs of trauma. EYES: extraocular movements intact, scleral icterus, conjunctiva clear. No ptosis. ENT: oropharynx clear without exudates, moist mucous membranes. NECK: Trachea midline, full range of motion, LUNGS: Anterior Lungs: Breath sounds equal, clear to auscultation bilaterally, no wheezes, no crackles, no accessory muscle use. Posterior Lungs: Could not auscultate due to patient's weakness HEART: Regular rate and rhythm, S1, S2 without murmur, rub or gallop. ABDOMEN: Soft, tenderness over epigastrium, mild distention, normoactive bowel sounds, no guarding, no rebound, no hepatosplenomegaly, multiple masses EXTREMITIES: Pedal edema bilaterally, warm, well-perfused, 2+ pulses b/l NEUROLOGICAL: Normal speech, gait not observed. Laboratory Results - last 24 hr 12/12/16 12/12/16 12/12/16 17:03 21:30 21:35 WBC RBC Hgb Hct MCV MCHC RDW Plt Count MPV Neutrophils % Lymphocytes % Monocytes % Eosinophils % Basophils % Band Neutrophils Differential Comment Platelet Estimate Platelet Comment Anisocytosis Sodium 149 H Potassium 3.7 Chloride 115 H Carbon Dioxide 24 Anion Gap 10 BUN 14 Creatinine 0.7 Creat Clearance w eGFR POC Glucometer 269 234 Random Glucose 208 H Calcium 6.4 L* Phosphorus Magnesium Total Bilirubin AST ALT Alkaline Phosphatase Total Protein Albumin 12/13/16 12/13/16 12/13/16 05:48 05:48 05:49 WBC 3.2 L RBC 3.55 L Hgb 9.9 L D Hct 29.4 L MCV 82.8 MCHC 33.6 RDW 19.9 H Plt Count 74 L D MPV 10.2 Neutrophils % 50.0 Lymphocytes % 37.0 D Monocytes % 2.0 L D Eosinophils % 5.0 H D Basophils % 0.0 Band Neutrophils 6.0 Differential Comment Manual diff done Platelet Estimate Decreased Platelet Comment No clumping noted Anisocytosis 1+ Sodium 148 H Potassium 3.7 Chloride 115 H Carbon Dioxide 24 Anion Gap 9 BUN 13 Creatinine 0.7 Creat Clearance w eGFR > 60 POC Glucometer 246 Random Glucose 232 H Calcium 5.8 L* Phosphorus 1.4 L Magnesium 2.3 Total Bilirubin 5.2 H AST 299 H D ALT 79 H D Alkaline Phosphatase 474 H Total Protein 4.5 L Albumin 1.5 L 12/13/16 11:39 WBC RBC Hgb Hct MCV MCHC RDW Plt Count MPV Neutrophils % Lymphocytes % Monocytes % Eosinophils % Basophils % Band Neutrophils Differential Comment Platelet Estimate Platelet Comment Anisocytosis Sodium Potassium Chloride Carbon Dioxide Anion Gap BUN Creatinine Creat Clearance w eGFR POC Glucometer 268 Random Glucose Calcium Phosphorus Magnesium Total Bilirubin AST ALT Alkaline Phosphatase Total Protein Albumin Active Medications Generic Name Dose Route Start Last Admin Trade Name Freq PRN Reason Stop Dose Admin Acetaminophen 650 mg 12/11/16 12:26 12/12/16 21:36 Tylenol - PO 650 mg Q6H PRN Administration FEVER OR PAIN Calcium Carbonate 650 mg 12/13/16 12:15 12/13/16 13:05 Calcium Carbonate - PO 650 mg DAILY JESSY Administration Enoxaparin Sodium 40 mg 12/13/16 10:00 12/13/16 09:11 Lovenox - SQ 40 mg DAILY JESSY Administration Levofloxacin 100 mls @ 100 mls/hr 12/12/16 22:00 12/12/16 22:18 Levaquin 500 Mg Premixed Ivpb - IVPB 100 mls/hr DAILY JESSY Administration Dextrose 1,000 mls @ 75 mls/hr 12/13/16 08:02 12/13/16 15:04 D5w - IV 75 mls/hr ASDIR JESSY Administration Insulin Aspart 1 vial 12/11/16 23:15 12/13/16 13:04 Novolog Vial Sliding Scale - SQ 6 units ACHS JESSY Administration Protocol Lactulose 20 gm 12/11/16 17:04 Cephulac (Oral Use) PO TID PRN CONSTIPATION Morphine Sulfate 1 mg 12/11/16 12:26 12/13/16 04:16 Morphine Injection - IVPUSH 1 mg Q4H PRN Administration PAIN ASSESSMENT/PLAN: 46 year old F with PMH of breast cancer with mets to liver and lungs currently on chemotherapy presented to the ED for chest pain and shortness of breath admitted for R/O PE and possible progression of cancer 1. Chest Pain: -Has since resolved -Initial Chest CT showed pulmonary and hepatic lesions with lymphadenopathy -EKG shows no acute changes and troponins x2 negative -CTA shows right upper lobe mass, lymphadenopathy, but no PE Plan: -Discontinue cardiac monitoring 2. Shortness of breath -Likely due to progression of her disease -CTA shows right upper lobe mass, lymphadenopathy, but no PE -Oncologist started empiric Levoquin 500 mg IV Plan: -Continue supplemental O2 2L NC 3. Hypernatremia -Corrected Na 151 -Lasix given yesterday Plan: -Give 1 more dose of lasix 40 mg PO -Increase D5W to 75cc/hr IV -Continue to trend labs Q6 hrs -F/u UA and urine sodium 4. Elevated total bilirubin -T bili- 5.2 -CT abdomen shows multiple liver mets -Progression of her cancer Plan: -Continue lactulose 20 mg PO TID PRN and titrate for 2-3 bowel movements daily 5. Acute encephalopathy -Improved cognition -DDX: Hepatic encephalopathy vs Hypernatremia vs. brain mets Plan: -Monitor cognitive status 6. Breast cancer with mets to liver, lungs, bone, and brain -Brain MRI shows multiple small lesions in the brain consistent with metastasis -Discussed poor prognosis with family using a acting section chief -Patient's son wants patient to be transferred to [place] -Dr. Jones spoke with her oncologist who doesn't believe that transfer is needed currently and should be medically optimized prior to discharge Plan: -Will f/u with her oncologist as an outpatient after medically optimized -Continue Morphine 1mg IVP -Continue Tylenol 650 mg PO Q6H PRN 7. Hyperglycemia -Improving Plan: -Continue BGM ACHS -Continue ISS 8. Hypokalemia -Resolved after 40 meq of PO potassium chloride oral liquid Plan: -monitor labs 9. DVT Prophylaxis Plan: -Lovenox 40 mg SQ daily Visit type - Emergency Visit Emergency Visit: No - New Patient This patient is new to me today: No - Critical Care Critical Care patient: No
[2016-12-13 15:28] LABS: MCH 28.1 pg (25.7-33.7); MCHC 33.7 g/dl (32.0-36.0); MEAN CELL VOLUME 83.4 fl (80-96); MEAN PLT VOLUME 9.8 fl (7.5-11.1); PLATELET COUNT 42 K/MM3 (134-434); RDW 20.2 % (11.6-15.6); WHITE BLOOD COUNT 2.7 K/mm3 (4.0-10.0)
[2016-12-13 16:02] LABS: URINE APPEARANCE CLEAR; URINE COLOR AMBER; URINE GLUCOSE (UA) 1+ (NEGATIVE); URINE KETONE NEGATIVE (NEGATIVE); URINE LEUK ESTERASE NEGATIVE (NEGATIVE); URINE NITRITE NEGATIVE (NEGATIVE); URINE PROTEIN NEGATIVE (NEGATIVE); URINE UROBILINOGEN 2.0 E.U/dl E.U./dl (0.2-1.0)
[2016-12-13 16:03] LABS: URINE BLOOD 2+ (NEGATIVE)
[2016-12-13 16:05] LABS: URINE BACTERIA RARE /hpf (NONE SEEN); URINE RBC <1 /hpf (0-3); URINE WBC 2 /hpf (3-5)
--- NOTE | 2016-12-13 16:05 | PN ---
Progress Note (short form) - Note Progress Note: Patient seen and examined Icteric ROS Denies headache, diplopia, epistasxis, dysphagia Chest pain, some abdominal pains, no dysuria, hematuria, some back pains Last Vital Signs Temp Pulse Resp BP Pulse Ox 99.5 F 109 H 20 116/75 96 12/13/16 14:01 12/13/16 14:01 12/13/16 14:01 12/13/16 14:01 12/12/16 21:00 HEENT: BRIANNA, EOM Intact icteric Oropharynx: thrush, No mucositis, deentures Neck: Supple Nodes: Without adenopathy Breasts: Without masses Cor: RSR, No murmurs, No gallops Lungs: poor inspiratory effort Abd: Soft, ascites, liver decreased 10 cm RCM Ext:LE edema Skin: No rashes, Integument intact CBC, BMP 12/13/16 14:45 Current Medications Generic Name Dose Route Start Last Admin Trade Name Freq PRN Reason Stop Dose Admin Acetaminophen 650 mg 12/11/16 12:26 12/12/16 21:36 Tylenol - PO 650 mg Q6H PRN Administration FEVER OR PAIN Calcium Carbonate 650 mg 12/13/16 12:15 12/13/16 13:05 Calcium Carbonate - PO 650 mg DAILY JESSY Administration Enoxaparin Sodium 40 mg 12/13/16 10:00 12/13/16 09:11 Lovenox - SQ 40 mg DAILY JESSY Administration Levofloxacin 100 mls @ 100 mls/hr 12/12/16 22:00 12/12/16 22:18 Levaquin 500 Mg Premixed Ivpb - IVPB 100 mls/hr DAILY JESSY Administration Dextrose 1,000 mls @ 75 mls/hr 12/13/16 08:02 12/13/16 15:04 D5w - IV 75 mls/hr ASDIR JESSY Administration Insulin Aspart 1 vial 12/11/16 23:15 12/13/16 13:04 Novolog Vial Sliding Scale - SQ 6 units ACHS JESSY Administration Protocol Lactulose 20 gm 12/11/16 17:04 Cephulac (Oral Use) PO TID PRN CONSTIPATION Morphine Sulfate 1 mg 12/11/16 12:26 12/13/16 04:16 Morphine Injection - IVPUSH 1 mg Q4H PRN Administration PAIN Impression: Metastatic breast ca - bone ,liver, brain mets Neutropenia Thrombocytopenia S/P chemotherapy 8 days earlier Hypocalcemia Hypophosphatemia Thrush By history , day 8 post adriamycin containing chemotherapy regimen. Octavio of adriamycin typically is 10-14 days post treatment Would expect prolonged myelosuppression however,as adriamycin is metabolized in liver, and current bilirubin is >5. Low Ca++, and Phos I suspect may be related to zometa or denosumab given for bone mets. Would expect this to improve with time. Need to support Ca++ and Phosphorus. Platelets currentoly at 42K. If further fall - d/c lovenox [id number] and falling , will need neupogen support. Thrush- oral nystatin . .
[2016-12-13 16:16] LABS: ANION GAP 10 (8-16); CO2 24 mmol/L (21-32); CREATININE 0.8 mg/dL (0.55-1.02); GLUCOSE,RANDOM 192 mg/dL (74-106)
[2016-12-13 16:23] LABS: CALCIUM 6.3 mg/dL (8.5-10.1)
[2016-12-13 16:24] LABS: PHOSPHOROUS 1.1 mg/dL (2.5-4.9)
[2016-12-13] MEDS ORDERED: POTASSIUM PHOSPHATE 30 MM in DEXTROSE 5%-WATER - 250 ML IVPB ONE (17:23)
[2016-12-13] MEDS ORDERED: POTASSIUM CHLORIDE ORAL LIQUID 20 MEQ/15 ML PO ONE (17:24)
[2016-12-13] MEDS ORDERED: CALCIUM GLUCONATE 10% - 1,000 MG/10 ML VIAL IVPB ONE (17:26)
[2016-12-13] MEDS: NYSTATIN 500,000 UNITS/5 ML SUSPENSION PO SCH (17:40)
[2016-12-13] MEDS: ACETAMINOPHEN 325 MG TABLET (FP) PO PRN (19:57)
[2016-12-13] MEDS: TBO-FILGRASTIM 300 MCG/0.5 ML DISP.SYRINGE SQ SCH (21:48)
[2016-12-13] MEDS: LEVOFLOXACIN 500 MG IVPB 100 ML IVPB SCH ×2 (21:54→22:35)
[2016-12-14] MEDS: NYSTATIN 500,000 UNITS/5 ML SUSPENSION PO SCH ×4 (00:21→17:39)
[2016-12-14] MEDS: INSULIN SLIDING SCALE (NOVOLOG) 1 VIAL SQ SCH ×4 (06:13→22:46)
[2016-12-14 07:40] LABS: MCH 27.7 pg (25.7-33.7); MCHC 33.5 g/dl (32.0-36.0); MEAN CELL VOLUME 82.7 fl (80-96); MEAN PLT VOLUME 11.8 fl (7.5-11.1); PLATELET COUNT 47 K/MM3 (134-434); RDW 19.6 % (11.6-15.6)
[2016-12-14 07:49] LABS: ANION GAP 9 (8-16); CO2 24 mmol/L (21-32); CREATININE 0.7 mg/dL (0.55-1.02); GLUCOSE,RANDOM 242 mg/dL (74-106)
[2016-12-14 08:08] LABS: CALCIUM 6.5 mg/dL (8.5-10.1)
[2016-12-14] MEDS ORDERED: TBO-FILGRASTIM 300 MCG/0.5 ML DISP.SYRINGE SQ SCH (10:00)
[2016-12-14] MEDS ORDERED: ONDANSETRON 4 MG/2 ML VIAL IVPUSH PRN (10:12)
[2016-12-14] MEDS ORDERED: ONDANSETRON 4 MG/2 ML VIAL IVPB ONE (10:15)
[2016-12-14 11:16] LABS: PLATELET ESTIMATE DECREASED (NORMAL)
[2016-12-14] MEDS ORDERED: FUROSEMIDE 40 MG TABLET (FP) PO ONE ×2 (11:52→16:00)
--- NOTE | 2016-12-14 12:33 | PN ---
Teaching Attending Note Name of Resident: Abad Adams ATTENDING PHYSICIAN STATEMENT I saw and evaluated the patient. I reviewed the resident's note and discussed the case with the resident. I agree with the resident's findings and plan as documented. SUBJECTIVE:c/o nausea, large emesis today in front of me, food particles no blood. pt felt significantly better after vomiting. states her abdomen felt larger today and was having a hard time eating due to full sensation. denies CP , SOB,fever, chills, C/D. 1 BM yesterday OBJECTIVE: Last Vital Signs Temp Pulse Resp BP Pulse Ox 98.4 F 95 H 20 105/62 96 12/14/16 05:37 12/14/16 05:37 12/14/16 05:37 12/14/16 05:37 12/13/16 21:00 General NAD, scleral icterus, no oral plaques CV S1 s2 RRR no murmur/rub/gallop Lungs CTA B/L anteriorly no crackles ABdomen firm, multiple masses, + distention normoactive BS, nontender no guarding Extremities non-pitting edema limited to feet. +RLE calf tenderness. ASSESSMENT AND PLAN: 46yo F with PMH breast cancer with mets liver/lung presented to the ER with SOB and CP 1. SOB- progression of disease. CTA done and negative for PE. showing progression of lung mets. empiric levaquin started by oncologist.day 3. cont supplemental oxygen to maintain spO2 > 95. 2. Vomiting- possible due to worsening ascites. will re-evaluate later today. concerned in setting of low grade fever yesterday that may be developing SBP however likely due to worsening ascites with compression on the stomach. will monitor closely. if spikes temp will proceed with paracentesis. will be high risk as thrombocytopenic. 3. Hypernatremia- Corrected Na 146. will give additional dose of lasix. due to worsening ascites will give lasix x1. d/c IVF. repeat Na level tomorrow. 4. Elevated total bili- likely due to progression of disease. CT abdomen/pelvis confirm progression of liver mets. slowly trending down. cont lactulose. monitor for 2-3 BM daily 5. Acute toxic/metabolic encephalopathy- due to hepatic encephalopathy vs hypernatremia.mental status at baseline 6. hypophosatemia- suspicion received Zometa with chemo. Kphos IV 7. Hypocalcemia- Corrected Ca 8.5. likely due to ZOmeta. start oral supplementation 8. Normocytic anemia- likely dilutional component, no signs of bleeding. Hgb stable. s/p neupogen yesterday 9. RLE calf tenderness- did not have previsously. likely due to volume overload. high risk for DVT. check doppler. 10 breast cancer with mets (lung, liver, bone)- Brain MRI showing 20-30 lesions consistent with mets in post fossa and supratentorial compartment. plan to f/u with oncologist for initiation of whole brain radiation 11. DVT ppx- SCD. lovenox d/c to thromboytopenia 12. Poor overall prognosis. PT eval. likely will require MANPREET
[2016-12-14] MEDS ORDERED: POTASSIUM PHOSPHATE 30 MM in DEXTROSE 5%-WATER - 500 ML IVPB ONE (14:00)
[2016-12-14 14:59] LABS: MAGNESIUM 2.2 mg/dL (1.8-2.4)
[2016-12-14] MEDS: CALCIUM CARBONATE 650 MG TABLET PO SCH (15:22)
[2016-12-14] MEDS: LEVOFLOXACIN 500 MG IVPB 100 ML IVPB SCH (15:22)
[2016-12-14] MEDS: TBO-FILGRASTIM 300 MCG/0.5 ML DISP.SYRINGE SQ SCH (15:23)
[2016-12-14] MEDS: oxyCODONE HCL 5 MG TABLET PO PRN (17:37)
--- NOTE | 2016-12-14 18:06 | PN ---
Physical Exam: SUBJECTIVE: Patient seen and examined Patient spiked a fever of 100.7 at 1800 and given tylenol 650 mg PO. Patient remained afebrile since. No acute complaints. Having >4 BM a day. Denies Chest pain, shortness of breath, nausea, diarrhea, constipation. OBJECTIVE: Vital Signs Period Temp Pulse Resp BP Sys/Valerio Pulse Ox Last 24 Hr 98 F-100.7 F 95-111 20-20 100-122/61-76 96 GENERAL: The patient is awake, alert, and fully oriented, in no acute distress. HEAD: Normal with no signs of trauma. EYES: extraocular movements intact, sclera icterus, conjunctiva clear. ENT: tongue with mild thrush, oropharynx clear without exudates, moist mucous membranes. NECK: Trachea midline, full range of motion LUNGS: Breath sounds equal, clear to auscultation bilaterally, no wheezes, no crackles, no accessory muscle use. HEART: Regular rate and rhythm, S1, S2 without murmur, rub or gallop. ABDOMEN: Firm, distended, nontender, normoactive bowel sounds, no guarding, no rebound EXTREMITIES: Right lateral wrist: inflammed indurated lesion B/l LE: warm, 1-2+ edema NEUROLOGICAL: Normal speech, gait not observed. PSYCH: Normal mood, normal affect. Laboratory Results - last 24 hr 12/13/16 12/13/16 12/14/16 15:56 21:36 05:51 WBC RBC Hgb Hct MCV MCHC RDW Plt Count MPV Neutrophils % Lymphocytes % Monocytes % Eosinophils % Basophils % Band Neutrophils Differential Comment Platelet Estimate Sodium Potassium Chloride Carbon Dioxide Anion Gap BUN Creatinine POC Glucometer 267 238 Random Glucose Calcium Magnesium Urine Color Yelena Urine Appearance Clear Urine pH 6.0 Ur Specific Magee <= 1.005 Urine Protein Negative Urine Glucose (UA) 1+ H Urine Ketones Negative Urine Blood 2+ H Urine Nitrite Negative Urine Bilirubin 2.0 Urine Urobilinogen 2.0 e.u/dl H Ur Leukocyte Esterase Negative Urine RBC <1 Urine WBC 2 Ur Epithelial Cells Rare Urine Bacteria Rare 12/14/16 12/14/16 12/14/16 06:00 06:00 12:34 WBC 3.0 L RBC 3.70 Hgb 10.3 L Hct 30.6 L MCV 82.7 MCHC 33.5 RDW 19.6 H Plt Count 47 L MPV 11.8 H D Neutrophils % 53.0 Lymphocytes % 34.0 Monocytes % 4.0 D Eosinophils % 5.0 H Basophils % 1.0 D Band Neutrophils 3.0 D Differential Comment Manual diff done Platelet Estimate Decreased Sodium 143 Potassium 3.8 Chloride 110 H Carbon Dioxide 24 Anion Gap 9 BUN 10 Creatinine 0.7 POC Glucometer 270 Random Glucose 242 H D Calcium 6.5 L* Magnesium 2.2 Urine Color Urine Appearance Urine pH Ur Specific Magee Urine Protein Urine Glucose (UA) Urine Ketones Urine Blood Urine Nitrite Urine Bilirubin Urine Urobilinogen Ur Leukocyte Esterase Urine RBC Urine WBC Ur Epithelial Cells Urine Bacteria Active Medications Generic Name Dose Route Start Last Admin Trade Name Freq PRN Reason Stop Dose Admin Acetaminophen 650 mg 12/11/16 12:26 12/13/16 19:57 Tylenol - PO 650 mg Q6H PRN Administration FEVER OR PAIN Calcium Carbonate 650 mg 12/13/16 12:15 12/14/16 15:22 Calcium Carbonate - PO 650 mg DAILY JESSY Administration Levofloxacin 100 mls @ 100 mls/hr 12/13/16 22:00 12/14/16 15:22 Levaquin 500 Mg Premixed Ivpb - IVPB 100 mls/hr DAILY JESSY Administration Potassium Phosphate 30 mm/ 510 mls @ 62.5 mls/hr 12/14/16 14:00 12/14/16 17:38 Dextrose IVPB 12/14/16 22:09 62.5 mls/hr ONCE ONE Administration Insulin Aspart 1 vial 12/11/16 23:15 12/14/16 15:24 Novolog Vial Sliding Scale - SQ Not Given ACHS [facility] Protocol Lactulose 20 gm 12/11/16 17:04 Cephulac (Oral Use) PO TID PRN CONSTIPATION Nystatin 500,000 units 12/13/16 18:00 12/14/16 17:39 Nystatin Oral Suspension - PO 500,000 units Q6HPO JESSY Administration Ondansetron HCl 4 mg 12/14/16 10:12 12/14/16 15:32 Zofran Injection IVPUSH 4 mg Q6H PRN Administration NAUSEA AND/OR VOMITING Oxycodone HCl 5 mg 12/14/16 17:11 12/14/16 17:37 Roxicodone - PO 5 mg Q6H PRN Administration PAIN Tbo-Filgrastim 480 mcg 12/13/16 21:00 12/14/16 15:23 Granix - SQ 480 mcg DAILY JESSY Administration ASSESSMENT/PLAN: 46 year old F with PMH of breast cancer with mets to liver and lungs currently on chemotherapy presented to the ED for chest pain and shortness of breath admitted for R/O PE and possible progression of cancer 1. Chest Pain: -Has since resolved -Initial Chest CT showed pulmonary and hepatic lesions with lymphadenopathy -EKG shows no acute changes and troponins x2 negative -CTA shows right upper lobe mass, lymphadenopathy, but no PE Plan: -Monitor for any chest pain 2. Shortness of breath -Likely due to progression of her disease -CTA shows right upper lobe mass, lymphadenopathy, but no PE -Oncologist started empiric Levoquin 500 mg IV Plan: -Continue supplemental O2 2L NC -Continue Day 3 of Levoquin 500 mg IV 3. Hypernatremia -Corrected Na 146 -Lasix given yesterday Plan: -Give 1 more dose of lasix 40 mg PO -D/c D5W IVF -Continue to trend labs Q6 hrs 4. Right wrist lesion -patient noted painful right wrist lesion -possible phlebitis -no discharge Plan: -Warm compress applied -Will reassess tomorrow 5. Vomiting -multiple episodes of emesis after drinking coffee prior -Could be due to coffee vs ascties vs abdominal examination Plan: -Given Zofran 8mg IV 6. Acute encephalopathy -Improved cognition -DDX: Hepatic encephalopathy vs Hypernatremia vs. brain mets Plan: -Monitor cognitive status -Continue lactulose 20 mg PO TID PRN and titrate for 2-3 bowel movements daily 7. Breast cancer with mets to liver, lungs, bone, and brain -Brain MRI shows multiple small lesions in the brain consistent with metastasis -Discussed poor prognosis with family using a cash room clerk -Patient's son wants patient to be transferred to [place] -Dr. Jones spoke with her oncologist who doesn't believe that transfer is needed currently and should be medically optimized prior to discharge -Patient spiked fever of 100.7 Plan: -Will f/u with her oncologist as an outpatient after medically optimized -Continue Morphine 1mg IVP -Continue Tylenol 650 mg PO Q6H PRN -If patient has fever >101, will do a full sepsis workup (BCX, CXR, and UA) 8. Hyperglycemia -Improving Plan: -Continue BGM ACHS -Continue ISS 9. Hypokalemia -Resolved after 40 meq of PO potassium chloride oral liquid Plan: -monitor labs 10. DVT Prophylaxis Plan: -Lovenox 40 mg SQ daily Dispo: Waiting on PT evaluation, will probably require MANPREET Visit type - Emergency Visit Emergency Visit: No - New Patient This patient is new to me today: No - Critical Care Critical Care patient: No
[2016-12-14] MEDS: ACETAMINOPHEN 325 MG TABLET (FP) PO PRN (22:47)
--- NOTE | 2016-12-15 04:39 | HOSP ---
Physical Examination Vital Signs: Vital Signs Temperature 98.6 F 12/15/16 00:59 Pulse Rate 110 H 12/15/16 00:59 Respiratory Rate 20 12/14/16 22:42 Blood Pressure 111/60 12/15/16 00:59 O2 Sat by Pulse Oximetry (%) 97 12/14/16 21:00 Labs: CBC, BMP 12/14/16 06:00 12/14/16 06:00 Hospitalist Encounter Assessment: Paged by RN to evaluate for chest pressure. On arrival, patient's CP has resolved. Pt reported pressure-like pain that last for 5min; non-radiating. Denies SOB, diaphoresis, fever, chills. PE: Cardio: tachycardia, regular rate, normal s1/s2 VS: SpO2 91% on RA HR 100 BP 123/67 A/P: r/o ACS -Troponin stat -EKG stat Manju Buckley MD Visit type - Emergency Visit Emergency Visit: No - New Patient This patient is new to me today: Yes Date on this admission: 12/15/16 - Critical Care Critical Care patient: No
[2016-12-15 05:07] LABS: BASOPHIL 0.9 % (0-2.0); EOSINOPHIL 1.8 % (0-4.5); MCH 27.7 pg (25.7-33.7); MCHC 33.5 g/dl (32.0-36.0); MEAN CELL VOLUME 82.7 fl (80-96); MEAN PLT VOLUME 11.3 fl (7.5-11.1); NEUTROPHILS 53.1 % (42.8-82.8); PLATELET COUNT 66 K/MM3 (134-434); RDW 18.8 % (11.6-15.6); WHITE BLOOD COUNT 3.6 K/mm3 (4.0-10.0)
[2016-12-15 05:48] LABS: ALBUMIN 1.5 g/dl (3.4-5.0); ANION GAP 11 (8-16); BILIRUBIN,TOTAL 8.3 mg/dL (0.2-1.0); CO2 24 mmol/L (21-32); CREATININE 0.7 mg/dL (0.55-1.02); GLUCOSE,RANDOM 223 mg/dL (74-106); SGPT/ALT 54 U/L (12-78); TOT PROT 4.4 g/dl (6.4-8.2)
[2016-12-15 05:50] LABS: ALK PHOS 541 U/L (45-117); TROPONIN I < 0.02 ng/ml (0.00-0.05)
[2016-12-15 05:53] LABS: SGOT/AST 174 U/L (15-37)
[2016-12-15 05:54] LABS: CALCIUM 6.4 mg/dL (8.5-10.1)
[2016-12-15] MEDS: NYSTATIN 500,000 UNITS/5 ML SUSPENSION PO SCH ×4 (06:46→18:15)
[2016-12-15] MEDS: INSULIN SLIDING SCALE (NOVOLOG) 1 VIAL SQ SCH ×4 (06:47→21:37)
[2016-12-15 07:44] LABS: MCH 27.9 pg (25.7-33.7); MCHC 33.7 g/dl (32.0-36.0); MEAN CELL VOLUME 82.8 fl (80-96); MEAN PLT VOLUME 11.8 fl (7.5-11.1); RDW 19.4 % (11.6-15.6)
[2016-12-15 08:21] LABS: ALBUMIN 1.5 g/dl (3.4-5.0); ALK PHOS 543 U/L (45-117); ANION GAP 13 (8-16); BILIRUBIN,TOTAL 9.4 mg/dL (0.2-1.0); CO2 23 mmol/L (21-32); CREATININE 0.7 mg/dL (0.55-1.02); GLUCOSE,RANDOM 201 mg/dL (74-106); PHOSPHOROUS 1.9 mg/dL (2.5-4.9); SGPT/ALT 58 U/L (12-78); TOT PROT 4.5 g/dl (6.4-8.2)
[2016-12-15 08:28] LABS: SGOT/AST 180 U/L (15-37)
[2016-12-15] MEDS ORDERED: NAPH,MB-DB/K PH,MBDB POWDER PACKET PO ONE (09:00)
[2016-12-15 09:43] LABS: CALCIUM 6.7 mg/dL (8.5-10.1)
[2016-12-15 10:41] LABS: MAGNESIUM 2.1 mg/dL (1.8-2.4)
[2016-12-15] MEDS: TBO-FILGRASTIM 300 MCG/0.5 ML DISP.SYRINGE SQ SCH (11:47)
[2016-12-15] MEDS: LEVOFLOXACIN 500 MG IVPB 100 ML IVPB SCH (11:47)
[2016-12-15] MEDS: CALCIUM CARBONATE 650 MG TABLET PO SCH (11:47)
[2016-12-15] MEDS: oxyCODONE HCL 5 MG TABLET PO PRN (11:48)
[2016-12-15] MEDS: FUROSEMIDE 40 MG TABLET (FP) PO ONE ×2 (11:48→12:12)
[2016-12-15] MEDS ORDERED: INSULIN (NOVOLOG) ASPART 100 UNITS/ML 10ML VIAL ONE (12:10)
--- NOTE | 2016-12-15 12:15 | CON.GI ---
Consult Consult Specialty:: GI Referred by:: Hospitalist Service Reason for Consultation:: Abnormal liver chemistries, ? biliary stent - History of Present Illness Chief Complaint: Patient admitted for chest pain, no focal chief complaint currently History of Present Illness: 46 y/o F with known metastatic BCA (received chemos last end of 11/26 per the patient) who receives care mainly at [facility], admitted to [facility] 12/11 for evaluation of CP / SOB. son gave her morphine with no resolution of symptoms. SOB and CP had resolved since arrival to the hospital. Per the admit note she was noted to me jaundiced a few days prior to admission. CT scan reveals an enlarged liver with multiple liver lesions and also has multiple brain lesions. she complains of left upper abdominal pain - History Source History Provided By: Patient, Friend (aided in filipino translation), Medical Record Limitations to Obtaining History: No Limitations - Past Medical History ...: No Heme/Onc: Yes: Cancer (Metastatic BCA) - Past Surgical History Past Surgical History: Yes: Additional Surgical History: BTL - Alcohol/Substance Use Hx Alcohol Use: No History of Substance Use: reports: None - Smoking History Smoking history: Never smoked Have you smoked in the past 12 months: No - Social History Usual Living Arrangement: With Child ADL: Family Assistance Place of : Other ([place]) Came to [place] (year[place] 1997 History of Recent Travel: No Home Medications - Allergies Allergies/Adverse Reactions: Allergies Allergy/AdvReac Type Severity Reaction Status Date / Time No Known Allergies Allergy Unverified 11/18/13 12:30 Family Disease History - Family Disease History Family Disease History: Other: Sister (Leukemia), Son (x 2, 1 with skin cancer) Review of Systems - Review of Systems Cardiovascular: reports: Chest Pain (resolved) Respiratory: reports: SOB (improved) Gastrointestinal: reports: Abdominal Pain, Constipation, Nausea. denies: Melena , Rectal Bleeding Physical Exam-GI Vital Signs: Vital Signs Temperature 98.2 F 12/15/16 06:05 Pulse Rate 100 H 12/15/16 06:05 Respiratory Rate 20 12/15/16 06:05 Blood Pressure 123/62 12/15/16 06:05 O2 Sat by Pulse Oximetry (%) 97 12/14/16 21:00 Constitutional: No: Calm Eyes: Yes: Sclera Icterus Cardiovascular: Yes: Regular Rate and Rhythm. No: Murmur Respiratory: Yes: CTA Bilaterally Gastrointestinal Inspection: Yes: Scars (pelvic surgical scar). No: Distention ...Auscultate: Yes: Normoactive Bowel Sounds ...Palpate: Yes: Tenderness (LUQ) ...Percussion: No: Tympanitic Edema: Yes Edema: LLE: 2+, RLE: 2+ Neurological: Yes: Alert, Oriented Labs: CBC, BMP 12/15/16 06:00 12/15/16 06:00 INR, PTT INR 2.31 (0.82-1.09) H D 12/12/16 05:35 Hepatic Panel Total Bilirubin 9.4 mg/dL (0.2-1.0) H 12/15/16 06:00 AST 180 U/L (15-37) H 12/15/16 06:00 ALT 58 U/L (12-78) 12/15/16 06:00 Alkaline Phosphatase 543 U/L (45-117) H 12/15/16 06:00 Albumin 1.5 g/dl (3.4-5.0) L 12/15/16 06:00 Imaging - Results Cat Scan: Report Reviewed (No biliary dictal dilatation noted), Image Reviewed Problem List - Problems (1) Metastatic breast cancer Assessment/Plan: I suspect that Ms. Rudd' cholestatic liver dysfunction reflects significant tumor burden within her liver as opposed to significant biliary obstruction as biliary tract did not appear dilated on CT scan. Her LUQ pain likely reflects pain from an enlarged liver (extending to the left abdomen) with strecthing of enrico's capsule. MRCP has been ordered to reassess biliary tract. If she cannot tolerate than liver ultrasound would do Strongly consider palliative care consult Code(s): C50.919 - MALIGNANT NEOPLASM OF UNSP SITE OF UNSPECIFIED FEMALE BREAST (2) Abnormal liver function Code(s): K76.89 - OTHER SPECIFIED DISEASES OF LIVER
[2016-12-15 13:51] LABS: WHITE BLOOD COUNT 4.6 K/mm3 (4.0-10.0)
[2016-12-15 13:53] LABS: PLATELET COUNT 56 K/MM3 (134-434)
[2016-12-15 13:55] LABS: PLATELET COMMENT2 NO CLOTTING DETECTED; PLATELET COMMENT3 FEW GIANT PLTS; PLATELET ESTIMATE DECREASED (NORMAL); SMUDGE CELLS FEW
--- NOTE | 2016-12-15 13:59 | PN ---
Teaching Attending Note Name of Resident: Abad Adams ATTENDING PHYSICIAN STATEMENT I saw and evaluated the patient. I reviewed the resident's note and discussed the case with the resident. I agree with the resident's findings and plan as documented. SUBJECTIVE: No complaints. OBJECTIVE: Vital Signs Period Temp Pulse Resp BP Sys/Valerio Pulse Ox Last 24 Hr 98.2 F-99.7 F 100-111 20-20 107-123/60-74 97 HEART: S1S2, tachycardic LUNGS: Bilateral rhonchi ABDOMEN: Obese, soft, non-tender, distended, normal BS EXTREMITIES: 1+ edema ASSESSMENT AND PLAN: This is a 46-year-old woman with a history of metastatic breast cancer who presented to the ER with chest pain and shortness of breath. 1. Breast cancer with lung, liver and brain metastases, and malignant ascites - GI consult appreciated - On Levaquin empirically - Continue Lasix as needed - Continue Zofran as needed 2. Hypernatremia - Improved 3. Acute metabolic encephalopathy secondary to hypernatremia - Resolved 4. Hypophosphatemia - Continue to supplement phosphorus 5. Hypocalcemia - Corrected calcium is 8.7 - Continue calcium supplementation 6. Anemia, likely secondary to chronic illness - Hemoglobin stable
--- NOTE | 2016-12-15 14:25 | PN ---
Physical Exam: SUBJECTIVE: Patient seen and examined No complaints this morning. Causey her ascites had improved. Overnight, patient had chest pain and tightness that lasted 5 mins. EKG and trops were negative. She also had 1 episode of nonbloody emesis OBJECTIVE: Vital Signs Period Temp Pulse Resp BP Sys/Valerio Pulse Ox Last 24 Hr 98.2 F-99.7 F 100-111 20-20 107-123/60-74 97 GENERAL: The patient is awake, alert, and fully oriented, in no acute distress. HEAD: Normal with no signs of trauma. EYES: extraocular movements intact, sclera icterus, conjunctiva clear. ENT: Tongue clear (no thrush), oropharynx clear without exudates, moist mucous membranes. NECK: Trachea midline, full range of motion LUNGS: Breath sounds equal, clear to auscultation bilaterally, no wheezes, no crackles, no accessory muscle use. HEART: Regular rate and rhythm, S1, S2 without murmur, rub or gallop. ABDOMEN: Firm, distended, nontender, normoactive bowel sounds, no guarding, no rebound, multiple masses, Hepatomegaly EXTREMITIES: Right lateral wrist: inflammed indurated lesion. -B/l LE: warm, 1-2+ edema NEUROLOGICAL: Normal speech, gait not observed. PSYCH: Normal mood, normal affect. Laboratory Results - last 24 hr 12/14/16 12/14/16 12/14/16 06:00 18:40 22:46 WBC Corrected WBC (auto) RBC Hgb Hct MCV MCHC RDW Plt Count MPV Neutrophils % Lymphocytes % Monocytes % Eosinophils % Basophils % Band Neutrophils Nucleated RBCs Reactive Lymphocytes Smudge Cells Platelet Estimate Platelet Comment Sodium 143 Potassium 3.8 Chloride 110 H Carbon Dioxide 24 Anion Gap 9 BUN 10 Creatinine 0.7 Creat Clearance w eGFR POC Glucometer 302 299 Random Glucose 242 H D Calcium 6.5 L* Phosphorus Magnesium 2.2 Total Bilirubin AST ALT Alkaline Phosphatase Troponin I Total Protein Albumin 12/15/16 12/15/16 12/15/16 03:36 04:50 04:50 WBC Corrected WBC (auto) RBC Hgb Hct MCV MCHC RDW Plt Count MPV Neutrophils % Lymphocytes % Monocytes % Eosinophils % Basophils % Band Neutrophils Nucleated RBCs Reactive Lymphocytes Smudge Cells Platelet Estimate Platelet Comment Sodium 143 Potassium 3.7 Chloride 108 H Carbon Dioxide 24 Anion Gap 11 BUN 9 Creatinine 0.7 Creat Clearance w eGFR > 60 POC Glucometer 221 Random Glucose 223 H Calcium 6.4 L* Phosphorus 2.1 L D Magnesium Total Bilirubin 8.3 H D AST 174 H D ALT 54 D Alkaline Phosphatase 541 H Troponin I < 0.02 Total Protein 4.4 L Albumin 1.5 L 12/15/16 12/15/16 12/15/16 04:50 06:00 06:00 WBC 3.6 L 4.6 Corrected WBC (auto) 3.77 RBC 3.49 L 3.82 Hgb 9.7 L 10.7 D Hct 28.8 L 31.7 L MCV 82.7 82.8 MCHC 33.5 33.7 RDW 18.8 H 19.4 H Plt Count 66 L D 56 L MPV 11.3 H 11.8 H Neutrophils % 53.1 22.0 L D Lymphocytes % 32.6 59.0 H D Monocytes % 11.6 H D 7.0 Eosinophils % 1.8 3.0 Basophils % 0.9 Band Neutrophils 7.0 D Nucleated RBCs 22 H* Reactive Lymphocytes 2 Smudge Cells Few Platelet Estimate Decreased Platelet Comment No clotting detected Sodium 143 Potassium 3.6 Chloride 107 Carbon Dioxide 23 Anion Gap 13 BUN 9 Creatinine 0.7 Creat Clearance w eGFR > 60 POC Glucometer Random Glucose 201 H Calcium 6.7 L* Phosphorus 1.9 L Magnesium 2.1 Total Bilirubin 9.4 H AST 180 H ALT 58 Alkaline Phosphatase 543 H Troponin I Total Protein 4.5 L Albumin 1.5 L 12/15/16 11:59 WBC Corrected WBC (auto) RBC Hgb Hct MCV MCHC RDW Plt Count MPV Neutrophils % Lymphocytes % Monocytes % Eosinophils % Basophils % Band Neutrophils Nucleated RBCs Reactive Lymphocytes Smudge Cells Platelet Estimate Platelet Comment Sodium Potassium Chloride Carbon Dioxide Anion Gap BUN Creatinine Creat Clearance w eGFR POC Glucometer 244 Random Glucose Calcium Phosphorus Magnesium Total Bilirubin AST ALT Alkaline Phosphatase Troponin I Total Protein Albumin Active Medications Generic Name Dose Route Start Last Admin Trade Name Freq PRN Reason Stop Dose Admin Acetaminophen 650 mg 12/11/16 12:26 12/14/16 22:47 Tylenol - PO 650 mg Q6H PRN Administration FEVER OR PAIN Calcium Carbonate 650 mg 12/13/16 12:15 12/15/16 11:47 Calcium Carbonate - PO 650 mg DAILY JESSY Administration Levofloxacin 100 mls @ 100 mls/hr 12/13/16 22:00 12/15/16 11:47 Levaquin 500 Mg Premixed Ivpb - IVPB 100 mls/hr DAILY JESSY Administration Insulin Aspart 1 vial 12/11/16 23:15 12/15/16 12:11 Novolog Vial Sliding Scale - SQ 4 unit ACHS JESSY Administration Protocol Lactulose 20 gm 12/11/16 17:04 Cephulac (Oral Use) PO TID PRN CONSTIPATION Nystatin 500,000 units 12/13/16 18:00 12/15/16 12:12 Nystatin Oral Suspension - PO 500,000 units Q6HPO JESSY Administration Ondansetron HCl 4 mg 12/14/16 10:12 12/14/16 15:32 Zofran Injection IVPUSH 4 mg Q6H PRN Administration NAUSEA AND/OR VOMITING Oxycodone HCl 5 mg 12/14/16 17:11 12/15/16 11:48 Roxicodone - PO 5 mg Q6H PRN Administration PAIN Tbo-Filgrastim 480 mcg 12/13/16 21:00 12/15/16 11:47 Granix - SQ 480 mcg DAILY JESSY Administration ASSESSMENT/PLAN: 46 year old F with PMH of breast cancer with mets to liver and lungs currently on chemotherapy presented to the ED for chest pain and shortness of breath admitted for R/O PE and possible progression of cancer 1. Vomiting -Possibly due to worsening ascites -Had multiple episodes of vomiting yesterday -1 episode of emesis overnight -Given 1 dose of lasix yesterday to help with ascites Plan: -Lasix PO 40 mg given 2. Abnormal Hepatic Panel -Possibly due to mets but in the setting of intermittent fevers could be cholangitis or biliary tract obstruction Plan: -Consult GI for possible palliative stent placement, will F/u 3. Chest Pain: -1 episode overnight lasting 5 minutes -EKG negative -Trops negative -Unlikely cardiac in nature -More likely due to lung mets causing chest tightness/pain Plan: -Monitor for any more episodes of chest pain 4. Shortness of breath -Likely due to progression of her disease -CTA shows right upper lobe mass, lymphadenopathy, but no PE -Oncologist started empiric Levoquin 500 mg IV Plan: -Continue supplemental O2 2L NC -Continue Day 4 of Levoquin 500 mg IV 5. Hypernatremia -Corrected Na 146 Plan: -Monitor labs 4. 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 Acute encephalopathy -Improved cognition -DDX: Hepatic encephalopathy vs Hypernatremia vs. brain mets Plan: -Monitor cognitive status -Continue lactulose 20 mg PO TID PRN and titrate for 2-3 bowel movements daily 7. Breast cancer with mets to liver, lungs, bone, and brain -Brain MRI shows multiple small lesions in the brain consistent with metastasis -Discussed poor prognosis with family using a fruit buying grader -Patient's son wants patient to be transferred to [place] -Dr. Jones spoke with her oncologist who doesn't believe that transfer is needed currently and should be medically optimized prior to discharge -Patient spiked fever of 100.7 Plan: -Will f/u with her oncologist as an outpatient after medically optimized -Continue Morphine 1mg IVP -Continue Tylenol 650 mg PO Q6H PRN -If patient has fever >101, will do a full sepsis workup (BCX, CXR, and UA) 8. Hyperglycemia -stable Plan: -Continue BGM ACHS -Continue ISS 9. Calf tenderness -Calf tenderness resolved -Doppler u/s negative for DVT Plan: -Monitor patient for additional DVT sx -Continue DVT ppx 9. Hypokalemia -Resolved after 40 meq of PO potassium chloride oral liquid Plan: -monitor labs 10. DVT Prophylaxis Plan: -Lovenox 40 mg SQ daily Visit type - Emergency Visit Emergency Visit: No - New Patient This patient is new to me today: No - Critical Care Critical Care patient: No
--- NOTE | 2016-12-15 18:37 | PN ---
Progress Note (short form) - Note Progress Note: PAtient seen and examined Denies any complaints Last Vital Signs Temp Pulse Resp BP Pulse Ox 98.2 F 99 H 22 113/72 97 12/15/16 10:00 12/15/16 10:00 12/15/16 10:00 12/15/16 10:00 12/15/16 10:00 Cor: RSR, No murmurs, No gallops Lungs: Clear to P&A Abd: Soft, Normal bowel sounds, No organomegaly anasarca Abnormal Lab Results 12/15/16 12/15/16 12/15/16 04:50 04:50 04:50 WBC 3.6 L RBC 3.49 L Hgb 9.7 L Hct 28.8 L RDW 18.8 H Plt Count 66 L D MPV 11.3 H Neutrophils % Lymphocytes % Monocytes % 11.6 H D Nucleated RBCs Chloride 108 H Random Glucose 223 H Calcium 6.4 L* Phosphorus 2.1 L D Total Bilirubin 8.3 H D AST 174 H D Alkaline Phosphatase 541 H Total Protein 4.4 L Albumin 1.5 L 12/15/16 12/15/16 06:00 06:00 WBC RBC Hgb Hct 31.7 L RDW 19.4 H Plt Count 56 L MPV 11.8 H Neutrophils % 22.0 L D Lymphocytes % 59.0 H D Monocytes % Nucleated RBCs 22 H* Chloride Random Glucose 201 H Calcium 6.7 L* Phosphorus 1.9 L Total Bilirubin 9.4 H AST 180 H Alkaline Phosphatase 543 H Total Protein 4.5 L Albumin 1.5 L Active Medications Acetaminophen (Tylenol -) 650 mg PO Q6H PRN PRN Reason: FEVER OR PAIN Last Admin: 12/14/16 22:47 Dose: 650 mg Calcium Carbonate (Calcium Carbonate -) 650 mg PO DAILY [facility] Last Admin: 12/15/16 11:47 Dose: 650 mg Levofloxacin (Levaquin 500 Mg Premixed Ivpb -) 100 mls @ 100 mls/hr IVPB DAILY [facility] Last Admin: 12/15/16 11:47 Dose: 100 mls/hr Insulin Aspart (Novolog Vial Sliding Scale -) 1 vial SQ ACHS JESSY PRN Reason: Protocol Last Admin: 12/15/16 18:15 Dose: 4 unit Lactulose (Cephulac (Oral Use)) 20 gm PO TID PRN PRN Reason: CONSTIPATION Nystatin (Nystatin Oral Suspension -) 500,000 units PO Q6HPO JESSY Last Admin: 12/15/16 18:15 Dose: 500,000 units Ondansetron HCl (Zofran Injection) 4 mg IVPUSH Q6H PRN PRN Reason: NAUSEA AND/OR VOMITING Last Admin: 12/14/16 15:32 Dose: 4 mg Oxycodone HCl (Roxicodone -) 5 mg PO Q6H PRN PRN Reason: PAIN Last Admin: 12/15/16 11:48 Dose: 5 mg Tbo-Filgrastim (Granix -) 480 mcg SQ DAILY JESSY Last Admin: 12/15/16 11:47 Dose: 480 mcg A/P 46 y/o patient with advanced metastatic breast cancer, diagnosed 05/27, recently received adriamycin based chemotherapy, now with worsening liver function, brain mets bone mets discussed with 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 she understands her overall poor prognosis. she wishes to go to [facility] to meet her mother. hyponatremia/worsening edema/liver function gi input appreciated poor performance status, worsening liver function , agree with palliative care consu;t follow clinical course
[2016-12-16] MEDS: NYSTATIN 500,000 UNITS/5 ML SUSPENSION PO SCH ×4 (00:35→18:28)
[2016-12-16] MEDS: INSULIN SLIDING SCALE (NOVOLOG) 1 VIAL SQ SCH ×4 (06:11→21:42)
[2016-12-16] MEDS: oxyCODONE HCL 5 MG TABLET PO PRN ×2 (06:33→21:41)
[2016-12-16 07:11] LABS: MCH 28.1 pg (25.7-33.7); MEAN CELL VOLUME 82.5 fl (80-96); MEAN PLT VOLUME 10.6 fl (7.5-11.1); PLATELET COUNT 101 K/MM3 (134-434); RDW 19.4 % (11.6-15.6)
[2016-12-16 07:38] LABS: ALBUMIN 1.4 g/dl (3.4-5.0); ANION GAP 11 (8-16); CO2 27 mmol/L (21-32); GLUCOSE,RANDOM 148 mg/dL (74-106)
[2016-12-16 07:42] LABS: ALK PHOS 602 U/L (45-117); BILIRUBIN,TOTAL 9.6 mg/dL (0.2-1.0); CREATININE 0.7 mg/dL (0.55-1.02); SGPT/ALT 53 U/L (12-78); TOT PROT 4.6 g/dl (6.4-8.2)
[2016-12-16 08:48] LABS: MAGNESIUM 2.1 mg/dL (1.8-2.4); SGOT/AST 191 U/L (15-37)
[2016-12-16] MEDS ORDERED: NAPH,MB-DB/K PH,MBDB POWDER PACKET PO ONE (09:00)
[2016-12-16 09:22] LABS: CALCIUM 6.9 mg/dL (8.5-10.1)
[2016-12-16] MEDS: LEVOFLOXACIN 500 MG IVPB 100 ML IVPB SCH (09:45)
[2016-12-16] MEDS: CALCIUM CARBONATE 650 MG TABLET PO SCH (09:46)
[2016-12-16 12:25] LABS: PLATELET ESTIMATE DECREASED (NORMAL); WHITE BLOOD COUNT 8.9 K/mm3 (4.0-10.0)
[2016-12-16 12:27] LABS: ANISOCYTOSIS 2+; HYPOCHROMIA 2+; MICROCYTOSIS 2+
[2016-12-16 12:28] LABS: TARGET CELLS 1+
--- NOTE | 2016-12-16 12:41 | PN ---
Physical Exam: SUBJECTIVE: Patient seen and examined No acute events overnight. Patient feels less pain in her belly. GI saw her and felt her cholestatic liver dysfunction was due to her tumor burden and ordered an MRCP to evaluate. OBJECTIVE: Vital Signs Period Temp Pulse Resp BP Sys/Valerio Pulse Ox Last 24 Hr 98.2 F-99.2 F 101-109 18-20 107-118/55-71 96 GENERAL: The patient is awake, alert, and fully oriented, in no acute distress. HEAD: Normal with no signs of trauma. EYES: Extraocular movements intact, sclera icterus, conjunctiva clear. ENT: tongue was clear (previously had thrush) oropharynx clear without exudates , moist mucous membranes. NECK: Trachea midline, full range of motion LUNGS: Breath sounds equal, clear to auscultation bilaterally, no wheezes, no crackles, no accessory muscle use. HEART: Regular rate and rhythm, S1, S2 without murmur, rub or gallop. ABDOMEN: Firm, decreased distention, nontender, normoactive bowel sounds, no guarding, no rebound EXTREMITIES: Right lateral wrist: inflammed indurated lesion B/l LE: warm, 1+ edema NEUROLOGICAL: Normal speech, gait not observed. PSYCH: Normal mood, normal affect. Laboratory Results - last 24 hr 12/15/16 12/15/16 12/15/16 06:00 11:59 17:02 WBC 4.6 Corrected WBC (auto) 3.77 RBC 3.82 Hgb 10.7 D Hct 31.7 L MCV 82.8 MCHC 33.7 RDW 19.4 H Plt Count 56 L MPV 11.8 H Neutrophils % 22.0 L D Lymphocytes % 59.0 H D Monocytes % 7.0 Eosinophils % 3.0 Band Neutrophils 7.0 D Nucleated RBCs 22 H* Differential Comment Reactive Lymphocytes 2 Smudge Cells Few Platelet Estimate Decreased Platelet Comment No clotting detected Hypochromic-Microcytic Anisocytosis Microcytosis Target Cells Sodium Potassium Chloride Carbon Dioxide Anion Gap BUN Creatinine Creat Clearance w eGFR POC Glucometer 244 214 Random Glucose Calcium Phosphorus Magnesium Total Bilirubin AST ALT Alkaline Phosphatase Total Protein Albumin 12/15/16 12/16/16 12/16/16 21:26 06:00 06:00 WBC 8.9 D Corrected WBC (auto) 6.85 RBC 3.72 Hgb 10.5 L Hct 30.7 L MCV 82.5 MCHC 34.0 RDW 19.4 H Plt Count 101 L D MPV 10.6 D Neutrophils % 57.0 D Lymphocytes % 37.0 D Monocytes % 9.0 Eosinophils % 2.0 Band Neutrophils 1.0 D Nucleated RBCs 30 H* Differential Comment Manual diff done Reactive Lymphocytes Smudge Cells Platelet Estimate Decreased Platelet Comment No clumping noted Hypochromic-Microcytic 2+ Anisocytosis 2+ Microcytosis 2+ Target Cells 1+ Sodium 142 Potassium 3.7 Chloride 104 Carbon Dioxide 27 Anion Gap 11 BUN 9 Creatinine 0.7 Creat Clearance w eGFR > 60 POC Glucometer 135 Random Glucose 148 H D Calcium 6.9 L* Phosphorus 2.0 L Magnesium 2.1 Total Bilirubin 9.6 H AST 191 H ALT 53 Alkaline Phosphatase 602 H Total Protein 4.6 L Albumin 1.4 L 12/16/16 12/16/16 06:02 11:40 WBC Corrected WBC (auto) RBC Hgb Hct MCV MCHC RDW Plt Count MPV Neutrophils % Lymphocytes % Monocytes % Eosinophils % Band Neutrophils Nucleated RBCs Differential Comment Reactive Lymphocytes Smudge Cells Platelet Estimate Platelet Comment Hypochromic-Microcytic Anisocytosis Microcytosis Target Cells Sodium Potassium Chloride Carbon Dioxide Anion Gap BUN Creatinine Creat Clearance w eGFR POC Glucometer 151 221 Random Glucose Calcium Phosphorus Magnesium Total Bilirubin AST ALT Alkaline Phosphatase Total Protein Albumin Active Medications Generic Name Dose Route Start Last Admin Trade Name Freq PRN Reason Stop Dose Admin Acetaminophen 650 mg 12/11/16 12:26 12/14/16 22:47 Tylenol - PO 650 mg Q6H PRN Administration FEVER OR PAIN Calcium Carbonate 650 mg 12/13/16 12:15 12/16/16 09:46 Calcium Carbonate - PO 650 mg DAILY JESSY Administration Levofloxacin 100 mls @ 100 mls/hr 12/13/16 22:00 12/16/16 09:45 Levaquin 500 Mg Premixed Ivpb - IVPB 100 mls/hr DAILY JESSY Administration Insulin Aspart 1 vial 12/11/16 23:15 12/16/16 06:11 Novolog Vial Sliding Scale - SQ Not Given ACHS [facility] Protocol Lactulose 20 gm 12/11/16 17:04 Cephulac (Oral Use) PO TID PRN CONSTIPATION Nystatin 500,000 units 12/13/16 18:00 12/16/16 06:11 Nystatin Oral Suspension - PO 500,000 units Q6HPO JESSY Administration Ondansetron HCl 4 mg 12/14/16 10:12 12/14/16 15:32 Zofran Injection IVPUSH 4 mg Q6H PRN Administration NAUSEA AND/OR VOMITING Oxycodone HCl 5 mg 12/14/16 17:11 12/16/16 06:33 Roxicodone - PO 5 mg Q6H PRN Administration PAIN ASSESSMENT/PLAN: 46 year old F with PMH of breast cancer with mets to liver and lungs, bone, and brain admitted for progression of disease and hypernatremia. 1. Ascites -Likely due to liver mets -Given 1 dose of lasix yesterday to help with ascites -Improved Plan: -Monitor for abdominal distention and LE swelling 2. Abnormal Hepatic Panel -Tumor burden vs Obstruction Plan: -MRCP if pt can tolerate 3. Chest Pain: -Resolved -More likely due to lung mets causing chest tightness/pain Plan: -Monitor for any more episodes of chest pain 4. Shortness of breath -Likely due to progression of her disease -CTA shows right upper lobe mass, lymphadenopathy, but no PE -Oncologist started empiric Levoquin 500 mg IV Plan: -Continue supplemental O2 2L NC -Continue Day 5 of Levoquin 500 mg IV 5. Hypernatremia -Resolved -Corrected Na 143 Plan: -Monitor labs 4. Right wrist lesion -unchanged from yesterday -patient noted painful right wrist lesion -possible phlebitis -no discharge -calender tender to touch Plan: -Apply warm compresses 6. Acute encephalopathy -Improved cognition -DDX: Hepatic encephalopathy vs Hypernatremia vs. brain mets Plan: -Monitor cognitive status -Continue lactulose 20 mg PO TID PRN and titrate for 2-3 bowel movements daily 7. Breast cancer with mets to liver, lungs, bone, and brain -Brain MRI shows multiple small lesions in the brain consistent with metastasis -Discussed poor prognosis with family using a utility agent -Dr. Jones spoke with her oncologist who doesn't believe that transfer is needed currently and should be medically optimized prior to discharge -Patient and son not fully grasping the severity of her prognosis Plan: -Will f/u with her oncologist as an outpatient after medically optimized -Continue Morphine 1mg IVP -Continue Tylenol 650 mg PO Q6H PRN -If patient has fever >101, will do a full sepsis workup (BCX, CXR, and UA) 8. Hyperglycemia -stable Plan: -Continue BGM ACHS -Continue ISS 9. Calf tenderness -Calf tenderness resolved -Doppler u/s negative for DVT Plan: -Monitor patient for additional DVT sx -Continue DVT ppx 9. Hypokalemia -Resolved after 40 meq of PO potassium chloride oral liquid Plan: -monitor labs 10. DVT Prophylaxis Plan: -Lovenox 40 mg SQ daily Visit type - Emergency Visit Emergency Visit: No - New Patient This patient is new to me today: No - Critical Care Critical Care patient: No
[2016-12-16] MEDS ORDERED: ONDANSETRON 4 MG/2 ML VIAL IVPUSH SCH (13:30)
--- NOTE | 2016-12-16 16:07 | PN ---
Progress Note (short form) - Note Progress Note: Patient seen and examined Spoke at length via full time staff interpreter with patient and son at bedside about disease, extent of disease, options of therpay. Patient and son expressed little insight into gravity and magnitude of illness. Planning to do MRCP to assess question of ductal dilatation to see if stenting is feasible to improve LFT's and decrease bilirubin. With rising bilirubin unable to give adriamycin which is metabolized and excreted in liver. Last Vital Signs Temp Pulse Resp BP Pulse Ox 98.3 F 99 H 20 112/60 96 12/16/16 14:08 12/16/16 14:08 12/16/16 14:08 12/16/16 14:08 12/16/16 09:00 HEENT: BRIANNA, EOM Intact, icteric Oropharynx: thrush, No mucositis,dentures CBC, BMP 12/16/16 06:00 12/16/16 06:00 INR, PTT INR 2.31 (0.82-1.09) H D 12/12/16 05:35 Current Medications Generic Name Dose Route Start Last Admin Trade Name Freq PRN Reason Stop Dose Admin Acetaminophen 650 mg 12/11/16 12:26 12/14/16 22:47 Tylenol - PO 650 mg Q6H PRN Administration FEVER OR PAIN Calcium Carbonate 650 mg 12/13/16 12:15 12/16/16 09:46 Calcium Carbonate - PO 650 mg DAILY JESSY Administration Levofloxacin 100 mls @ 100 mls/hr 12/13/16 22:00 12/16/16 09:45 Levaquin 500 Mg Premixed Ivpb - IVPB 100 mls/hr DAILY JESSY Administration Insulin Aspart 1 vial 12/11/16 23:15 12/16/16 13:18 Novolog Vial Sliding Scale - SQ 4 unit ACHS JESSY Administration Protocol Lactulose 20 gm 12/11/16 17:04 Cephulac (Oral Use) PO TID PRN CONSTIPATION Nystatin 500,000 units 12/13/16 18:00 12/16/16 13:18 Nystatin Oral Suspension - PO 500,000 units Q6HPO JESSY Administration Ondansetron HCl 4 mg 12/16/16 15:49 Zofran Injection IVPUSH Q6H PRN NAUSEA AND/OR VOMITING Oxycodone HCl 5 mg 12/14/16 17:11 12/16/16 06:33 Roxicodone - PO 5 mg Q6H PRN Administration PAIN Cor: RSR, No murmurs, No gallops Lungs: diminished breath sounds bilaterally Abd: Soft, Normal bowel sounds, ascites, liver -8 cm below xiphoid Ext:LE edema edema Skin: Numerous ecchymoses Impression: Metastatic breast ca Liver , lung, bone, brain S/P multiple lines of chemotherapy Coagulopathy secondary to liver disease Thrombocytopenia -likely secondary to liver disease Plan: MRCP Further management based upon results. Follow up at [facility] thereafter.
--- NOTE | 2016-12-16 16:10 | PN ---
Teaching Attending Note Name of Resident: Abad Adams ATTENDING PHYSICIAN STATEMENT I saw and evaluated the patient. I reviewed the resident's note and discussed the case with the resident. I agree with the resident's findings and plan as documented. SUBJECTIVE: Patient was vomiting this morning. She feels better now. She denies pain. OBJECTIVE: Vital Signs Period Temp Pulse Resp BP Sys/Valerio Pulse Ox Last 24 Hr 98.2 F-99.2 F 99-109 18-20 107-118/55-71 96-96 HEART: S1S2, RRR LUNGS: Bilateral rhonchi ABDOMEN: Obese, soft, non-tender, distended, normal BS EXTREMITIES: 1+ edema ASSESSMENT AND PLAN: This is a 46-year-old woman with a history of metastatic breast cancer who presented to the ER with chest pain and shortness of breath. 1. Breast cancer with lung, liver and brain metastases, and malignant ascites - On Levaquin empirically - Continue Lasix as needed - Continue Zofran as needed - MRCP to evaluate for biliary obstruction today 2. Hypernatremia - Improved 3. Acute metabolic encephalopathy secondary to hypernatremia - Resolved 4. Hypophosphatemia - Continue to supplement phosphorus 5. Hypocalcemia - Corrected calcium is 9.0 - Continue calcium supplementation 6. Anemia, likely secondary to chronic illness - Hemoglobin stable
[2016-12-17] MEDS: NYSTATIN 500,000 UNITS/5 ML SUSPENSION PO SCH ×4 (01:05→18:23)
[2016-12-17] MEDS: INSULIN SLIDING SCALE (NOVOLOG) 1 VIAL SQ SCH ×4 (06:18→21:56)
[2016-12-17 07:30] LABS: MCH 27.4 pg (25.7-33.7); MCHC 33.1 g/dl (32.0-36.0); MEAN CELL VOLUME 82.7 fl (80-96); MEAN PLT VOLUME 10.7 fl (7.5-11.1); PLATELET COUNT 135 K/MM3 (134-434)
[2016-12-17 08:22] LABS: ALBUMIN 1.4 g/dl (3.4-5.0); ANION GAP 10 (8-16); CALCIUM 7.1 mg/dL (8.5-10.1); CO2 28 mmol/L (21-32); GLUCOSE,RANDOM 153 mg/dL (74-106)
[2016-12-17 08:26] LABS: ALK PHOS 700 U/L (45-117); BILIRUBIN,TOTAL 9.5 mg/dL (0.2-1.0); CREATININE 0.6 mg/dL (0.55-1.02); SGPT/ALT 53 U/L (12-78); TOT PROT 4.4 g/dl (6.4-8.2)
[2016-12-17 08:36] LABS: MAGNESIUM 2.4 mg/dL (1.8-2.4); SGOT/AST 230 U/L (15-37)
[2016-12-17] MEDS: CALCIUM CARBONATE 650 MG TABLET PO SCH (10:32)
[2016-12-17] MEDS: LEVOFLOXACIN 500 MG IVPB 100 ML IVPB SCH (10:32)
[2016-12-17] MEDS: oxyCODONE HCL 5 MG TABLET PO PRN (12:16)
[2016-12-17 14:42] LABS: METAMYELOCYTE 5 % (0-2)
[2016-12-17 14:43] LABS: ANISOCYTOSIS 2+; HYPOCHROMIA 1+; MICROCYTOSIS 1+; PLATELET COMMENT2 FEW GIANT PLTS; PLATELET COMMENT3 NO CLOTTING DETECTED; PLATELET ESTIMATE SLT DECREASED (NORMAL); POIKILOCYTOSIS 2+; POLYCHROMASIA 3+; SMUDGE CELLS FEW
[2016-12-17 14:48] LABS: WHITE BLOOD COUNT 11.4 K/mm3 (4.0-10.0)
[2016-12-17] MEDS ORDERED: BENZOCAINE 28 GM HEMORRHOIDAL OINTMENT PR PRN (18:27)
--- NOTE | 2016-12-17 18:29 | PN ---
Teaching Attending Note Name of Resident: Abad Adams ATTENDING PHYSICIAN STATEMENT I saw and evaluated the patient. I reviewed the resident's note and discussed the case with the resident. I agree with the resident's findings and plan as documented. SUBJECTIVE: No complaints. OBJECTIVE: Vital Signs Period Temp Pulse Resp BP Sys/Valerio Pulse Ox Last 24 Hr 98.0 F-98.7 F 92-109 18-20 116-127/54-67 94-94 HEART: S1S2, tachycardic LUNGS: Few rhonchi ABDOMEN: Obese, soft, non-tender, distended, normal BS EXTREMITIES: 1+ edema ASSESSMENT AND PLAN: This is a 46-year-old woman with a history of metastatic breast cancer who presented to the ER with chest pain and shortness of breath. 1. Breast cancer with lung, liver and brain metastases, and malignant ascites - On Levaquin empirically - Continue Lasix as needed - Continue Zofran as needed - MRCP shows enlarged, cirrhotic liver with diffuse parenchymal infiltration suggestive of diffuse infiltrative HCC, reactive thickening of GB wall, no intrahepatic or extrahepatic ductal dilatation, large ascites, small gastroesophageal varices - Plan for paracentesis 2. Hypernatremia - Improved 3. Acute metabolic encephalopathy secondary to hypernatremia - Resolved 4. Hypophosphatemia - Continue to supplement phosphorus 5. Hypocalcemia - Corrected calcium is 9.0 - Continue calcium supplementation 6. Anemia, likely secondary to chronic illness - Hemoglobin stable 7. Leukocytosis with bandemia - No evidence of SBP at this time - Afebrile - Continue Levaquin - Monitor WBC
--- NOTE | 2016-12-17 19:03 | PN ---
Physical Exam: SUBJECTIVE: Patient seen and examined No acute events overnight. Patient underwent MRCP yesteday. No complaints this morning OBJECTIVE: Vital Signs Period Temp Pulse Resp BP Sys/Valerio Pulse Ox Last 24 Hr 98.0 F-98.7 F 92-109 18-20 112-127/54-67 94-94 GENERAL: The patient is awake, alert, and fully oriented, in no acute distress. HEAD: Normal with no signs of trauma. EYES: Extraocular movements intact, scleral icterus, conjunctiva clear. ENT: tongue clear (previous thrush), oropharynx clear without exudates, moist mucous membranes. NECK: Trachea midline, full range of motion LUNGS: Breath sounds equal, clear to auscultation bilaterally, no wheezes, no crackles, no accessory muscle use. HEART: Regular rate and rhythm, S1, S2 without murmur, rub or gallop. ABDOMEN: Soft, abdominal distention, nontender, normoactive bowel sounds, no guarding, no rebound EXTREMITIES: Right lateral wrist: inflammed indurated lesion... B/l LE: warm, 1 + edema NEUROLOGICAL: Normal speech, gait not observed. PSYCH: Normal mood, normal affect. Laboratory Results - last 24 hr 12/16/16 12/17/16 12/17/16 21:38 05:57 06:10 WBC 11.4 H Corrected WBC (auto) 9.66 RBC 3.69 Hgb 10.1 L Hct 30.5 L MCV 82.7 MCH 27.4 MCHC 33.1 RDW 20.0 H Plt Count 135 D MPV 10.7 Neutrophils % 42.0 L D Lymphocytes % 17.0 D Monocytes % 14.0 H Band Neutrophils 15.0 H D Metamyelocytes 5 H Myelocytes 3 H Nucleated RBCs 18 H* Smudge Cells Few Platelet Estimate Slt decreased Platelet Comment Few giant plts Polychromasia 3+ Hypochromic-Microcytic 1+ Poikilocytosis 2+ Basophilic Stippling 1+ Anisocytosis 2+ Microcytosis 1+ Macrocytosis 1+ Sodium Potassium Chloride Carbon Dioxide Anion Gap BUN Creatinine Creat Clearance w eGFR POC Glucometer 257 149 Random Glucose Calcium Phosphorus Magnesium Total Bilirubin AST ALT Alkaline Phosphatase Total Protein Albumin 12/17/16 12/17/16 12/17/16 06:30 11:40 17:42 WBC Corrected WBC (auto) RBC Hgb Hct MCV MCH MCHC RDW Plt Count MPV Neutrophils % Lymphocytes % Monocytes % Band Neutrophils Metamyelocytes Myelocytes Nucleated RBCs Smudge Cells Platelet Estimate Platelet Comment Polychromasia Hypochromic-Microcytic Poikilocytosis Basophilic Stippling Anisocytosis Microcytosis Macrocytosis Sodium 142 Potassium 3.5 Chloride 104 Carbon Dioxide 28 Anion Gap 10 BUN 8 Creatinine 0.6 Creat Clearance w eGFR > 60 POC Glucometer 239 175 Random Glucose 153 H Calcium 7.1 L Phosphorus 2.0 L Magnesium 2.4 Total Bilirubin 9.5 H AST 230 H D ALT 53 Alkaline Phosphatase 700 H Total Protein 4.4 L Albumin 1.4 L Active Medications Generic Name Dose Route Start Last Admin Trade Name Freq PRN Reason Stop Dose Admin Acetaminophen 650 mg 12/11/16 12:26 12/14/16 22:47 Tylenol - PO 650 mg Q6H PRN Administration FEVER OR PAIN Benzocaine 1 applic 12/17/16 18:27 Americaine Ointment - SD PRN PRN PAIN Calcium Carbonate 650 mg 12/13/16 12:15 12/17/16 10:32 Calcium Carbonate - PO 650 mg DAILY JESSY Administration Levofloxacin 100 mls @ 100 mls/hr 12/13/16 22:00 12/17/16 10:32 Levaquin 500 Mg Premixed Ivpb - IVPB 100 mls/hr DAILY JESSY Administration Insulin Aspart 1 vial 12/11/16 23:15 12/17/16 18:22 Novolog Vial Sliding Scale - SQ 2 unit ACHS JESSY Administration Protocol Lactulose 20 gm 12/11/16 17:04 Cephulac (Oral Use) PO TID PRN CONSTIPATION Nystatin 500,000 units 12/13/16 18:00 12/17/16 18:23 Nystatin Oral Suspension - PO 500,000 units Q6HPO JESSY Administration Ondansetron HCl 4 mg 12/16/16 15:49 Zofran Injection IVPUSH Q6H PRN NAUSEA AND/OR VOMITING ASSESSMENT/PLAN: 46 year old F with PMH of breast cancer with mets to liver and lungs, bone, and brain admitted for progression of disease and hypernatremia. 1. Abnormal Hepatic Panel/Ascites -MRCP shows cirrhotic liver with diffuse infiltration, suggestive of dffuse infiltrative HCC, thickened gallbladder wall, and alarge amount of ascites. Plan: -Therapeutic paracentesis planned -Lasix as needed 2. Chest Pain: -Resolved -More likely due to lung mets causing chest tightness/pain Plan: -Monitor for any more episodes of chest pain 3. Shortness of breath -Likely due to progression of her disease -CTA shows right upper lobe mass, lymphadenopathy, but no PE -Oncologist started empiric Levoquin 500 mg IV Plan: -Continue supplemental O2 2L NC -Continue Day 6 of Levoquin 500 mg IV 4. Hypernatremia -Resolved -Corrected Na 143 Plan: -Monitor labs 5. 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 Acute encephalopathy -Improved cognition -DDX: Hepatic encephalopathy vs Hypernatremia vs. brain mets Plan: -Monitor cognitive status -Continue lactulose 20 mg PO TID PRN and titrate for 2-3 bowel movements daily 7. Breast cancer with mets to liver, lungs, bone, and brain -Brain MRI shows multiple small lesions in the brain consistent with metastasis -Discussed poor prognosis with family using a seismic interpreter -Dr. Jones spoke with her oncologist who doesn't believe that transfer is needed currently and should be medically optimized prior to discharge -Patient and son not fully grasping the severity of her prognosis Plan: -Will f/u with her oncologist as an outpatient after medically optimized -Continue Morphine 1mg IVP -Continue Tylenol 650 mg PO Q6H PRN -If patient has fever >101, will do a full sepsis workup (BCX, CXR, and UA) 8. Hyperglycemia -stable Plan: -Continue BGM ACHS -Continue ISS 9. Calf tenderness -Calf tenderness resolved -Doppler u/s negative for DVT Plan: -Monitor patient for additional DVT sx -Continue DVT ppx 9. Hypokalemia -Resolved after 40 meq of PO potassium chloride oral liquid Plan: -monitor labs 10. DVT Prophylaxis Plan: -Lovenox 40 mg SQ daily Visit type - Emergency Visit Emergency Visit: No - New Patient This patient is new to me today: No - Critical Care Critical Care patient: No
--- NOTE | 2016-12-17 20:09 | PN ---
Progress Note (short form) - Note Progress Note: PAtient seen and examined Denies any complaints Last Vital Signs Temp Pulse Resp BP Pulse Ox 98.5 F 97 H 18 112/65 94 L 12/17/16 18:00 12/17/16 18:00 12/17/16 18:00 12/17/16 18:00 12/17/16 09:00 Cor: RSR, No murmurs, No gallops Lungs: Clear to P&A Abd: Soft, Normal bowel sounds, No organomegaly anasarca Abnormal Lab Results 12/17/16 12/17/16 06:10 06:30 WBC 11.4 H Hgb 10.1 L Hct 30.5 L RDW 20.0 H Neutrophils % 42.0 L D Monocytes % 14.0 H Band Neutrophils 15.0 H D Metamyelocytes 5 H Myelocytes 3 H Nucleated RBCs 18 H* Random Glucose 153 H Calcium 7.1 L Phosphorus 2.0 L Total Bilirubin 9.5 H AST 230 H D Alkaline Phosphatase 700 H Total Protein 4.4 L Albumin 1.4 L Active Medications Generic Name Dose Route Start Last Admin Trade Name Freq PRN Reason Stop Dose Admin Acetaminophen 650 mg 12/11/16 12:26 12/14/16 22:47 Tylenol - PO 650 mg Q6H PRN Administration FEVER OR PAIN Benzocaine 1 applic 12/17/16 18:27 Americaine Ointment - [place] PRN PRN PAIN Calcium Carbonate 650 mg 12/13/16 12:15 12/17/16 10:32 Calcium Carbonate - PO 650 mg DAILY JESSY Administration Levofloxacin 100 mls @ 100 mls/hr 12/13/16 22:00 12/17/16 10:32 Levaquin 500 Mg Premixed Ivpb - IVPB 100 mls/hr DAILY JESSY Administration Insulin Aspart 1 vial 12/11/16 23:15 12/17/16 18:22 Novolog Vial Sliding Scale - SQ 2 unit ACHS JESSY Administration Protocol Lactulose 20 gm 12/11/16 17:04 Cephulac (Oral Use) PO TID PRN CONSTIPATION Nystatin 500,000 units 12/13/16 18:00 12/17/16 18:23 Nystatin Oral Suspension - PO 500,000 units Q6HPO JESSY Administration Ondansetron HCl 4 mg 12/16/16 15:49 Zofran Injection IVPUSH Q6H PRN NAUSEA AND/OR VOMITING A/P 46 y/o patient with advanced metastatic breast cancer, diagnosed 05/27, recently received adriamycin based chemotherapy, now with worsening liver function, brain mets bone mets hyponatremia/worsening edema/liver function MRCP--diffuse hepatic infiltration, ascites poor performance status, worsening liver function , agree with palliative care consult myelosuppression from chemotherapy improved, supect elevated WBC from recent neupogen overshoot to consider vit. K trial/FFP and possible paracentesis, palliative prior to d/c
[2016-12-18] MEDS: NYSTATIN 500,000 UNITS/5 ML SUSPENSION PO SCH ×4 (00:50→18:49)
[2016-12-18] MEDS: ONDANSETRON 4 MG/2 ML VIAL IVPUSH PRN ×3 (05:51→19:44)
[2016-12-18] MEDS: INSULIN SLIDING SCALE (NOVOLOG) 1 VIAL SQ SCH ×4 (06:00→22:21)
[2016-12-18 07:13] LABS: MCH 27.9 pg (25.7-33.7); MCHC 33.6 g/dl (32.0-36.0); MEAN CELL VOLUME 83.3 fl (80-96); MEAN PLT VOLUME 10.3 fl (7.5-11.1); PLATELET COUNT 162 K/MM3 (134-434); RDW 20.8 % (11.6-15.6)
[2016-12-18 07:52] LABS: INR 2.59 (0.82-1.09)
[2016-12-18 07:54] LABS: ACTIVATED PTT 47.2 SECONDS (26.9-34.4)
[2016-12-18 08:29] LABS: ALBUMIN 1.4 g/dl (3.4-5.0); ALK PHOS 758 U/L (45-117); ANION GAP 7 (8-16); BILIRUBIN,DIRECT 8.1 mg/dL (0.0-0.2); BILIRUBIN,TOTAL 9.1 mg/dL (0.2-1.0); CALCIUM 7.3 mg/dL (8.5-10.1); CO2 28 mmol/L (21-32); CREATININE 0.7 mg/dL (0.55-1.02); GLUCOSE,RANDOM 179 mg/dL (74-106); SGPT/ALT 53 U/L (12-78); TOT PROT 4.5 g/dl (6.4-8.2)
[2016-12-18 08:31] LABS: SGOT/AST 257 U/L (15-37)
--- NOTE | 2016-12-18 09:12 | PN ---
Physical Exam: SUBJECTIVE: Patient seen and examined. She feels more bloated today. OBJECTIVE: Vital Signs Period Temp Pulse Resp BP Sys/Valerio Pulse Ox Last 24 Hr 97.5 F-98.5 F 92-105 18-20 110-127/59-67 94-95 GENERAL: The patient is awake, alert, and fully oriented, in no acute distress. LUNGS: Few rhonchi bilaterally. HEART: Regular rate and rhythm, S1, S2 without murmur, rub or gallop. ABDOMEN: Soft, nontender, distended, normoactive bowel sounds. EXTREMITIES: 2+ pulses, warm, well-perfused, 2+ edema. Laboratory Results - last 24 hr 12/17/16 12/17/16 12/17/16 06:10 11:40 17:42 WBC 11.4 H Corrected WBC (auto) 9.66 RBC 3.69 Hgb 10.1 L Hct 30.5 L MCV 82.7 MCH 27.4 MCHC 33.1 RDW 20.0 H Plt Count 135 D MPV 10.7 Neutrophils % 42.0 L D Lymphocytes % 17.0 D Monocytes % 14.0 H Band Neutrophils 15.0 H D Metamyelocytes 5 H Myelocytes 3 H Nucleated RBCs 18 H* Smudge Cells Few Platelet Estimate Slt decreased Platelet Comment Few giant plts Polychromasia 3+ Hypochromic-Microcytic 1+ Poikilocytosis 2+ Basophilic Stippling 1+ Anisocytosis 2+ Microcytosis 1+ Macrocytosis 1+ INR PTT (Actin FS) Fibrinogen Sodium Potassium Chloride Carbon Dioxide Anion Gap BUN Creatinine POC Glucometer 239 175 Random Glucose Calcium Total Bilirubin Direct Bilirubin AST ALT Alkaline Phosphatase Total Protein Albumin 12/17/16 12/18/16 12/18/16 21:19 05:55 06:15 WBC Corrected WBC (auto) RBC 3.80 Hgb 10.6 L Hct 31.6 L MCV 83.3 MCH 27.9 MCHC 33.6 RDW 20.8 H Plt Count 162 MPV 10.3 Neutrophils % Y Lymphocytes % Y Monocytes % Band Neutrophils Metamyelocytes Myelocytes Nucleated RBCs Smudge Cells Platelet Estimate Platelet Comment Polychromasia Hypochromic-Microcytic Poikilocytosis Basophilic Stippling Anisocytosis Microcytosis Macrocytosis INR PTT (Actin FS) Fibrinogen Sodium Potassium Chloride Carbon Dioxide Anion Gap BUN Creatinine POC Glucometer 148 137 Random Glucose Calcium Total Bilirubin Direct Bilirubin AST ALT Alkaline Phosphatase Total Protein Albumin 12/18/16 12/18/16 12/18/16 06:15 06:15 06:15 WBC Corrected WBC (auto) RBC Hgb Hct MCV MCH MCHC RDW Plt Count MPV Neutrophils % Lymphocytes % Monocytes % Band Neutrophils Metamyelocytes Myelocytes Nucleated RBCs Smudge Cells Platelet Estimate Platelet Comment Polychromasia Hypochromic-Microcytic Poikilocytosis Basophilic Stippling Anisocytosis Microcytosis Macrocytosis INR 2.59 H PTT (Actin FS) 47.2 H Fibrinogen 448.0 Sodium 142 Potassium 3.7 Chloride 107 Carbon Dioxide 28 Anion Gap 7 L BUN 8 Creatinine 0.7 POC Glucometer Random Glucose 179 H Calcium 7.3 L Total Bilirubin 9.1 H Direct Bilirubin 8.1 H AST 257 H ALT 53 Alkaline Phosphatase 758 H Total Protein 4.5 L Albumin 1.4 L Active Medications Generic Name Dose Route Start Last Admin Trade Name Freq PRN Reason Stop Dose Admin Acetaminophen 650 mg 12/11/16 12:26 12/14/16 22:47 Tylenol - PO 650 mg Q6H PRN Administration FEVER OR PAIN Benzocaine 1 applic 12/17/16 18:27 Americaine Ointment - [place] DAILY PRN PAIN Calcium Carbonate 650 mg 12/13/16 12:15 12/17/16 10:32 Calcium Carbonate - PO 650 mg DAILY [facility] Administration Levofloxacin 100 mls @ 100 mls/hr 12/13/16 22:00 12/17/16 10:32 Levaquin 500 Mg Premixed Ivpb - IVPB 100 mls/hr DAILY JESSY Administration Insulin Aspart 1 vial 12/11/16 23:15 12/18/16 06:00 Novolog Vial Sliding Scale - SQ Not Given ACHS [facility] Protocol Lactulose 20 gm 12/11/16 17:04 Cephulac (Oral Use) PO TID PRN CONSTIPATION Nystatin 500,000 units 12/13/16 18:00 12/18/16 05:43 Nystatin Oral Suspension - PO Not Given Q6HPO [facility] Ondansetron HCl 4 mg 12/16/16 15:49 12/18/16 05:51 Zofran Injection IVPUSH 4 mg Q6H PRN Administration NAUSEA AND/OR VOMITING Phytonadione 5 mg 12/18/16 10:00 Aqua Mephyton Injection - SQ DAILY JESSY ASSESSMENT/PLAN: This is a 46-year-old woman with a history of metastatic breast cancer who presented to the ER with chest pain and shortness of breath. 1. Breast cancer with lung, liver and brain metastases, and malignant ascites - Continue Zofran as needed - MRCP shows enlarged, cirrhotic liver with diffuse parenchymal infiltration suggestive of diffuse infiltrative HCC, reactive thickening of GB wall, no intrahepatic or extrahepatic ductal dilatation, large ascites, small gastroesophageal varices - Plan for paracentesis 2. Coagulopathy secondary to liver disease - Vitamin K started 3. Hypernatremia - Improved 4. Acute metabolic encephalopathy secondary to hypernatremia - Resolved 5. Hypophosphatemia - Continue to supplement phosphorus 6. Hypocalcemia - Corrected calcium is 9.4 - Continue calcium supplementation 7. Anemia, likely secondary to chronic illness - Hemoglobin is stable 8. Leukocytosis with bandemia - No evidence of SBP at this time - Afebrile - Continue Levaquin - Continue to monitor WBC Visit type - Emergency Visit Emergency Visit: Yes ED Registration Date: 12/11/16 Care time: The patient presented to the Emergency Department on the above date and was hospitalized for further evaluation of their emergent condition. - New Patient This patient is new to me today: No - Critical Care Critical Care patient: No - Discharge Referral Referred to [facility] Med [facility] No
[2016-12-18] MEDS ORDERED: NAPH,MB-DB/K PH,MBDB POWDER PACKET PO ONE (09:20)
[2016-12-18 11:00] LABS: WHITE BLOOD COUNT 12.6 K/mm3 (4.0-10.0)
[2016-12-18] MEDS: CALCIUM CARBONATE 650 MG TABLET PO SCH (11:00)
[2016-12-18] MEDS: LEVOFLOXACIN 500 MG IVPB 100 ML IVPB SCH (11:00)
[2016-12-18 11:01] LABS: ANISOCYTOSIS 2+; HYPOCHROMIA 1+; METAMYELOCYTE 4 % (0-2); TARGET CELLS 1+
[2016-12-18] MEDS: PHYTONADIONE 10 MG/1 ML AMP SQ SCH (11:01)
[2016-12-18] MEDS: oxyCODONE HCL 5 MG TABLET PO PRN (12:34)
--- NOTE | 2016-12-18 17:27 | PN ---
Progress Note (short form) - Note Progress Note: PAtient seen and examined Denies any complaints Last Vital Signs Temp Pulse Resp BP Pulse Ox 98.1 F 97 H 20 102/61 95 12/18/16 14:50 12/18/16 14:50 12/18/16 14:50 12/18/16 14:50 12/18/16 09:00 Cor: RSR, No murmurs, No gallops Lungs: Clear to P&A Abd: Soft, Normal bowel sounds, No organomegaly anasarca Abnormal Lab Results 12/18/16 12/18/16 12/18/16 06:15 06:15 06:15 WBC 12.6 H Hgb 10.6 L Hct 31.6 L RDW 20.8 H Band Neutrophils 11.0 H D Metamyelocytes 4 H Nucleated RBCs 4 H INR 2.59 H PTT (Actin FS) 47.2 H Anion Gap 7 L Random Glucose 179 H Calcium 7.3 L Total Bilirubin 9.1 H Direct Bilirubin 8.1 H AST 257 H Alkaline Phosphatase 758 H Total Protein 4.5 L Albumin 1.4 L Active Medications Generic Name Dose Route Start Last Admin Trade Name Freq PRN Reason Stop Dose Admin Acetaminophen 650 mg 12/11/16 12:26 12/14/16 22:47 Tylenol - PO 650 mg Q6H PRN Administration FEVER OR PAIN Benzocaine 1 applic 12/17/16 18:27 12/18/16 11:02 Americaine Ointment - [place] 1 applic DAILY PRN Administration PAIN Calcium Carbonate 650 mg 12/13/16 12:15 12/18/16 11:00 Calcium Carbonate - PO 650 mg DAILY [facility] Administration Levofloxacin 100 mls @ 100 mls/hr 12/13/16 22:00 12/18/16 11:00 Levaquin 500 Mg Premixed Ivpb - IVPB 100 mls/hr DAILY [facility] Administration Insulin Aspart 1 vial 12/11/16 23:15 12/18/16 11:08 Novolog Vial Sliding Scale - SQ 4 unit ACHS [facility] Administration Protocol Lactulose 20 gm 12/11/16 17:04 Cephulac (Oral Use) PO TID PRN CONSTIPATION Nystatin 500,000 units 12/13/16 18:00 12/18/16 12:35 Nystatin Oral Suspension - PO 500,000 units Q6HPO [facility] Administration Ondansetron HCl 4 mg 12/16/16 15:49 12/18/16 11:00 Zofran Injection IVPUSH 4 mg Q6H PRN Administration NAUSEA AND/OR VOMITING Oxycodone HCl 5 mg 12/18/16 11:56 12/18/16 12:34 Roxicodone - PO 5 mg Q6H PRN Administration PAIN Phytonadione 5 mg 12/18/16 10:00 12/18/16 11:01 Aqua Mephyton Injection - SQ 5 mg DAILY JESSY Administration A/P 46 y/o patient with advanced metastatic breast cancer, diagnosed 05/27, recently received adriamycin based chemotherapy, now with worsening liver function, brain mets bone mets hyponatremia/worsening edema/liver function MRCP--diffuse hepatic infiltration, ascites poor performance status, worsening liver function , agree with palliative care consult----patient, family want to pursue supportive care at this time and to f/ u with primary oncologist myelosuppression from chemotherapy improved, supect elevated WBC from recent neupogen overshoot to consider vit. K trial/FFP and possible paracentesis, palliative prior to d/c will give ffp starting 3 am tomorrow to draw PT/INR from peripheral stick
[2016-12-18] MEDS ORDERED: INSULIN (NOVOLOG) ASPART 100 UNITS/ML 10ML VIAL ONE (18:48)
[2016-12-19] MEDS: NYSTATIN 500,000 UNITS/5 ML SUSPENSION PO SCH ×5 (01:22→23:16)
[2016-12-19] MEDS: INSULIN SLIDING SCALE (NOVOLOG) 1 VIAL SQ SCH ×4 (06:17→22:05)
[2016-12-19] MEDS: ONDANSETRON 4 MG/2 ML VIAL IVPUSH PRN (06:20)
[2016-12-19] MEDS: oxyCODONE HCL 5 MG TABLET PO PRN ×2 (06:58→16:49)
[2016-12-19] MEDS ORDERED: ACETAMINOPHEN 325 MG TABLET (FP) PO PRN (07:47)
[2016-12-19] MEDS ORDERED: LACTULOSE 20 GM/30 ML UDC (FOR ORAL USE ONLY) PO PRN (07:47)
[2016-12-19 08:17] LABS: MCH 27.8 pg (25.7-33.7); MCHC 32.8 g/dl (32.0-36.0); MEAN CELL VOLUME 84.7 fl (80-96); MEAN PLT VOLUME 10.3 fl (7.5-11.1); PLATELET COUNT 176 K/MM3 (134-434); RDW 21.5 % (11.6-15.6)
[2016-12-19 08:35] LABS: INR 1.2 (0.82-1.09); PROTHROMBIN TIME (PATIENT) 13.3 SEC (9.98-11.88)
[2016-12-19 08:47] LABS: ALBUMIN 1.9 g/dl (3.4-5.0); ALK PHOS 728 U/L (45-117); ANION GAP 7 (8-16); BILIRUBIN,DIRECT 9.2 mg/dL (0.0-0.2); BILIRUBIN,TOTAL 10.8 mg/dL (0.2-1.0); CALCIUM 7.9 mg/dL (8.5-10.1); CO2 31 mmol/L (21-32); CREATININE 0.8 mg/dL (0.55-1.02); GLUCOSE,RANDOM 167 mg/dL (74-106); MAGNESIUM 2.6 mg/dL (1.8-2.4); PHOSPHOROUS 2.3 mg/dL (2.5-4.9); SGOT/AST 247 U/L (15-37); SGPT/ALT 54 U/L (12-78); TOT PROT 5.2 g/dl (6.4-8.2)
[2016-12-19] MEDS ORDERED: PT OWN MED DRAWER 7, Y5N ONE (10:07)
[2016-12-19 10:17] LABS: WHITE BLOOD COUNT 13.8 K/mm3 (4.0-10.0)
[2016-12-19] MEDS: PHYTONADIONE 10 MG/1 ML AMP SQ SCH (10:19)
[2016-12-19] MEDS: LEVOFLOXACIN 500 MG IVPB 100 ML IVPB SCH (10:19)
[2016-12-19] MEDS: CALCIUM CARBONATE 650 MG TABLET PO SCH (10:20)
--- NOTE | 2016-12-19 11:43 | PN ---
Physical Exam: SUBJECTIVE: Patient seen and examined Patient in significant pain today on left side. Feels her abdomen is larger. OBJECTIVE: Vital Signs Period Temp Pulse Resp BP Sys/Valerio Pulse Ox Last 24 Hr 98.1 F-98.3 F 95-108 19-20 102-141/49-61 95 GENERAL: The patient is awake, alert, and fully oriented, in no acute distress. HEAD: Normal with no signs of trauma. EYES: extraocular movements intact, scleral icterus. ENT: Oropharynx clear without exudates (no thrush), moist mucous membranes. NECK: Trachea midline, full range of motion LUNGS: Breath sounds equal, Mild crackles/rhonchi throughout HEART: Regular rate and rhythm, S1, S2 without murmur, rub or gallop. ABDOMEN: Soft, L sided tenderness, Ascites with distention, normoactive bowel sounds, no guarding, no rebound, + hepatosplenomegaly, multiple masses. EXTREMITIES: 2+ pulses, warm, well-perfused, 2+ edema NEUROLOGICAL: Cranial nerves II through XII grossly intact. Normal speech, gait not observed. PSYCH: Normal mood, normal affect. SKIN: Warm, dry, Jaundiced Laboratory Results - last 24 hr 12/18/16 12/18/16 12/18/16 11:07 17:22 20:40 WBC RBC Hgb Hct MCV MCH MCHC RDW Plt Count MPV Neutrophils % Lymphocytes % Monocytes % Basophils % Band Neutrophils INR PTT (Actin FS) Fibrinogen Sodium Potassium Chloride Carbon Dioxide Anion Gap BUN Creatinine POC Glucometer 224 222 Random Glucose Calcium Phosphorus Magnesium Total Bilirubin Direct Bilirubin AST ALT Alkaline Phosphatase Total Protein Albumin Blood Type O POSITIVE Antibody Screen Negative 12/19/16 12/19/16 12/19/16 06:15 06:30 06:30 WBC 13.8 H RBC 3.74 Hgb 10.4 L Hct 31.7 L MCV 84.7 MCH 27.8 MCHC 32.8 RDW 21.5 H Plt Count 176 MPV 10.3 Neutrophils % 78.0 D Lymphocytes % 15.0 D Monocytes % 2.0 L Basophils % 1.0 Band Neutrophils 4.0 D INR 1.20 H D PTT (Actin FS) 31.0 D Fibrinogen Sodium Potassium Chloride Carbon Dioxide Anion Gap BUN Creatinine POC Glucometer 189 Random Glucose Calcium Phosphorus Magnesium Total Bilirubin Direct Bilirubin AST ALT Alkaline Phosphatase Total Protein Albumin Blood Type Antibody Screen 12/19/16 12/19/16 06:30 06:30 WBC RBC Hgb Hct MCV MCH MCHC RDW Plt Count MPV Neutrophils % Lymphocytes % Monocytes % Basophils % Band Neutrophils INR PTT (Actin FS) Fibrinogen 448.0 Sodium 146 H Potassium 3.7 Chloride 108 H Carbon Dioxide 31 Anion Gap 7 L BUN 6 L D Creatinine 0.8 POC Glucometer Random Glucose 167 H Calcium 7.9 L Phosphorus 2.3 L Magnesium 2.6 H Total Bilirubin 10.8 H Direct Bilirubin 9.2 H AST 247 H ALT 54 Alkaline Phosphatase 728 H Total Protein 5.2 L Albumin 1.9 L D Blood Type Antibody Screen Active Medications Generic Name Dose Route Start Last Admin Trade Name Freq PRN Reason Stop Dose Admin Acetaminophen 650 mg 12/19/16 07:47 Tylenol - PO Q6H PRN FEVER OR PAIN Benzocaine 1 applic 12/17/16 18:27 12/18/16 11:02 Americaine Ointment - [place] 1 applic DAILY PRN Administration PAIN Calcium Carbonate 650 mg 12/13/16 12:15 12/19/16 10:20 Calcium Carbonate - PO 650 mg DAILY JESSY Administration Levofloxacin 100 mls @ 100 mls/hr 12/13/16 22:00 12/19/16 10:19 Levaquin 500 Mg Premixed Ivpb - IVPB 100 mls/hr DAILY [facility] Administration Insulin Aspart 1 vial 12/19/16 11:00 Novolog Vial Sliding Scale - SQ ACHS [facility] Protocol Lactulose 20 gm 12/19/16 07:47 Cephulac (Oral Use) PO TID PRN CONSTIPATION Nystatin 500,000 units 12/13/16 18:00 12/19/16 06:15 Nystatin Oral Suspension - PO 500,000 units Q6HPO JESS[facility] Administration Ondansetron HCl 4 mg 12/16/16 15:49 12/19/16 06:20 Zofran Injection IVPUSH 4 mg Q6H PRN Administration NAUSEA AND/OR VOMITING Oxycodone HCl 5 mg 12/18/16 11:56 12/19/16 06:58 Roxicodone - PO 5 mg Q6H PRN Administration PAIN Phytonadione 5 mg 12/18/16 10:00 12/19/16 10:19 Aqua Mephyton Injection - SQ 5 mg DAILY JESSY Administration ASSESSMENT/PLAN: 46 year old female with metastatic breast cancer to liver, lungs, brain, and bone presented for chest pain and SOB and admitted for hypernatremia and progression of disease 1. Metastatic breast cancer with lung, liver, bone, and brain metastases and ascites - MRCP showed severe cirrhotic liver with no biliary obstruction and significant ascites - Therapeutic paracentesis today, INR 1.2 - Continue Zofran 4 mg IVP PRN - Will call oncologist to update the plan 2. Hypernatremia - Corrected Na- 148 - Monitor BMP 3. Acute metabolic encephalopathy - Resolved 4. Hypophosphatemia - Phos 2.3 - Neutraphos packets 5. Hypocalcemia - Corrected calcium is 9.6 - Continue calcium supplementation, Calcium carbonate 650 mg PO daily 6. Anemia - Chronic disease - Hemoglobin is stable 7. Leukocytosis - WBC increased to 13.8 - Patient has remained afebrile - No evidence of SBP - Continue Levaquin 500 mg IVPB Daily - Continue to monitor WBC and temperature Visit type - Emergency Visit Emergency Visit: No - New Patient This patient is new to me today: No - Critical Care Critical Care patient: No
[2016-12-19] MEDS ORDERED: NAPH,MB-DB/K PH,MBDB POWDER PACKET PO ONE (11:51)
--- NOTE | 2016-12-19 13:59 | EKG ---
Test Reason : Blood Pressure : / mmHG Vent. Rate : 116 BPM Atrial Rate : 116 BPM P-R Int : 124 ms QRS Dur : 078 ms QT Int : 368 ms P-R-T Axes : 037 -13 021 degrees QTc Int : 511 ms SINUS TACHYCARDIA POSSIBLE ANTERIOR INFARCT , AGE UNDETERMINED ABNORMAL ECG WHEN COMPARED WITH ECG OF 09-MAR-2006 13:09, VENT. RATE HAS INCREASED BY 56 BPM T WAVE INVERSION NOW EVIDENT IN ANTERIOR LEADS Confirmed by JOSEY LOPEZ, MATT ([id number]) on 12/19/2016 1:58:50 PM Referred By: Confirmed By:MATT DOWLING MD
--- NOTE | 2016-12-19 16:30 | PN ---
Teaching Attending Note Name of Resident: Abad Adams ATTENDING PHYSICIAN STATEMENT I saw and evaluated the patient. I reviewed the resident's note and discussed the case with the resident. I agree with the resident's findings and plan as documented. SUBJECTIVE: Patient had left-sided abdominal pain this morning. OBJECTIVE: Vital Signs Period Temp Pulse Resp BP Sys/Valerio Pulse Ox Last 24 Hr 98.1 F-98.3 F 95-108 19-20 109-141/49-56 95 GENERAL: The patient is awake, alert, and fully oriented, in no acute distress. Jaundiced. LUNGS: Few rhonchi bilaterally. HEART: Regular rate and rhythm, S1, S2 without murmur, rub or gallop. ABDOMEN: Soft, nontender, distended, normoactive bowel sounds. EXTREMITIES: 2+ pulses, warm, well-perfused, 2+ edema. ASSESSMENT AND PLAN: This is a 46-year-old woman with a history of metastatic breast cancer who presented to the ER with chest pain and shortness of breath. 1. Breast cancer with lung, liver and brain metastases, and malignant ascites - Continue Zofran as needed - MRCP shows enlarged, cirrhotic liver with diffuse parenchymal infiltration suggestive of diffuse infiltrative HCC, reactive thickening of GB wall, no intrahepatic or extrahepatic ductal dilatation, large ascites, small gastroesophageal varices - Paracentesis today 2. Coagulopathy secondary to liver disease - s/p vitamin K 3. Hypernatremia 4. Acute metabolic encephalopathy secondary to hypernatremia - Resolved 5. Hypophosphatemia - Continue to supplement phosphorus 6. Hypocalcemia - Corrected calcium is 9.6 - Continue calcium supplementation 7. Anemia, likely secondary to chronic illness - Hemoglobin is stable 8. Leukocytosis with bandemia - No evidence of SBP at this time - Afebrile - Continue Levaquin - Continue to monitor WBC
[2016-12-19 18:15] LABS: PERITONEAL FLUID LYMPHOCYTE 40 %; PERITONEAL FLUID MESOTHELIAL 15 %; PERITONEAL FLUID MONOCYTE 16 %; PERITONEAL FLUID NEUTROPHIL 17 %
[2016-12-19 18:16] LABS: PERITONEAL FLUID MACROPHAGE 12 %
--- NOTE | 2016-12-19 18:32 | PN ---
Progress Note (short form) - Note Progress Note: PAtient seen and examined Denies any complaints Last Vital Signs Temp Pulse Resp BP Pulse Ox 98.1 F 104 H 19 109/54 95 12/19/16 10:18 12/19/16 10:18 12/19/16 10:18 12/19/16 10:18 12/19/16 10:20 Cor: RSR, No murmurs, No gallops Lungs: Clear to P&A Abd: Soft, Normal bowel sounds, No organomegaly anasarca Abnormal Lab Results 12/19/16 12/19/16 12/19/16 06:30 06:30 06:30 WBC 13.8 H Hgb 10.4 L Hct 31.7 L RDW 21.5 H Monocytes % 2.0 L INR 1.20 H D Sodium 146 H Chloride 108 H Anion Gap 7 L BUN 6 L D Random Glucose 167 H Calcium 7.9 L Phosphorus 2.3 L Magnesium 2.6 H Total Bilirubin 10.8 H Direct Bilirubin 9.2 H AST 247 H Alkaline Phosphatase 728 H Total Protein 5.2 L Albumin 1.9 L D Active Medications Generic Name Dose Route Start Last Admin Trade Name Freq PRN Reason Stop Dose Admin Acetaminophen 650 mg 12/19/16 07:47 Tylenol - PO Q6H PRN FEVER OR PAIN Benzocaine 1 applic 12/17/16 18:27 12/18/16 11:02 Americaine Ointment - [place] 1 applic DAILY PRN Administration PAIN Calcium Carbonate 650 mg 12/13/16 12:15 12/19/16 10:20 Calcium Carbonate - PO 650 mg DAILY JESSY Administration Levofloxacin 100 mls @ 100 mls/hr 12/13/16 22:00 12/19/16 10:19 Levaquin 500 Mg Premixed Ivpb - IVPB 100 mls/hr DAILY JESSY Administration Insulin Aspart 1 vial 12/19/16 11:00 12/19/16 16:50 Novolog Vial Sliding Scale - SQ 2 units ACHS JESSY Administration Protocol Lactulose 20 gm 12/19/16 07:47 Cephulac (Oral Use) PO TID PRN CONSTIPATION Nystatin 500,000 units 12/13/16 18:00 12/19/16 17:00 Nystatin Oral Suspension - PO 500,000 units Q6HPO JESSY Administration Ondansetron HCl 4 mg 12/16/16 15:49 12/19/16 06:20 Zofran Injection IVPUSH 4 mg Q6H PRN Administration NAUSEA AND/OR VOMITING Oxycodone HCl 5 mg 12/18/16 11:56 12/19/16 16:49 Roxicodone - PO 5 mg Q6H PRN Administration PAIN Phytonadione 5 mg 12/18/16 10:00 12/19/16 10:19 Aqua Mephyton Injection - SQ 5 mg DAILY JESSY Administration A/P 46 y/o patient with advanced metastatic breast cancer, diagnosed 05/27, recently received adriamycin based chemotherapy, now with worsening liver function, brain mets bone mets hyponatremia/worsening edema/liver function MRCP--diffuse hepatic infiltration, ascites poor performance status, worsening liver function , agree with palliative care consult----discussed in great detail with patient and family They are aware of overall poor prognosis s/p FFP/vit. K s/p paracentesis f/u cytology
[2016-12-20] MEDS: INSULIN SLIDING SCALE (NOVOLOG) 1 VIAL SQ SCH ×2 (06:41→12:11)
[2016-12-20] MEDS: NYSTATIN 500,000 UNITS/5 ML SUSPENSION PO SCH ×2 (06:42→12:32)
[2016-12-20 07:19] LABS: MCHC 32.5 g/dl (32.0-36.0); MEAN CELL VOLUME 86.4 fl (80-96); PLATELET COUNT 206 K/MM3 (134-434); RDW 21.2 % (11.6-15.6); WHITE BLOOD COUNT 16.6 K/mm3 (4.0-10.0)
[2016-12-20 07:39] LABS: ALBUMIN 1.6 g/dl (3.4-5.0); ANION GAP 9 (8-16); CALCIUM 7.9 mg/dL (8.5-10.1); CO2 32 mmol/L (21-32); GLUCOSE,RANDOM 168 mg/dL (74-106)
[2016-12-20 07:45] LABS: ALK PHOS 685 U/L (45-117); BILIRUBIN,DIRECT 9.4 mg/dL (0.0-0.2); BILIRUBIN,TOTAL 11.3 mg/dL (0.2-1.0); CREATININE 0.7 mg/dL (0.55-1.02); SGPT/ALT 54 U/L (12-78); TOT PROT 4.6 g/dl (6.4-8.2)
[2016-12-20 07:50] LABS: SGOT/AST 266 U/L (15-37)
[2016-12-20 08:47] VITALS: PULSE 113
[2016-12-20] MEDS ORDERED: PT OWN MED DRAWER 7, Y5N ONE (11:05)
[2016-12-20] MEDS: PHYTONADIONE 10 MG/1 ML AMP SQ SCH (11:14)
[2016-12-20] MEDS: CALCIUM CARBONATE 650 MG TABLET PO SCH (11:15)
[2016-12-20] MEDS: LEVOFLOXACIN 500 MG IVPB 100 ML IVPB SCH (11:15)
[2016-12-20 12:04] LABS: ANISOCYTOSIS 2+; HYPOCHROMIA 1+; METAMYELOCYTE 7 % (0-2); PLATELET ESTIMATE ADEQUATE (NORMAL); POLYCHROMASIA 2+; TARGET CELLS 1+
--- NOTE | 2016-12-20 12:41 | DS ---
Physical Exam: SUBJECTIVE: Patient seen and examined No acute complaints overnight. OBJECTIVE: Vital Signs Period Temp Pulse Resp BP Sys/Valerio Pulse Ox Last 24 Hr 98.2 F-99.8 F 107-113 18-20 105-111/54-64 94 PHYSICAL EXAM GENERAL: The patient is awake, alert, and fully oriented, in no acute distress. HEAD: Normal with no signs of trauma. EYES: extraocular movements intact, scleral icterus. ENT: Oropharynx clear without exudates (no thrush), moist mucous membranes. NECK: Trachea midline, full range of motion LUNGS: Breath sounds equal, Mild crackles/rhonchi throughout HEART: Regular rate and rhythm, S1, S2 without murmur, rub or gallop. ABDOMEN: Soft, L sided tenderness, Mildly distended, normoactive bowel sounds, no guarding, no rebound, + hepatosplenomegaly, multiple masses. EXTREMITIES: 2+ pulses, warm, well-perfused, 2+ edema NEUROLOGICAL: Cranial nerves II through XII grossly intact. Normal speech, gait not observed. PSYCH: Normal mood, normal affect. SKIN: Warm, dry, Jaundiced LABS Laboratory Results - last 24 hr Vital Signs Selected Entries 12/11/16 12/11/16 12/11/16 02:17 07:28 12:21 Temperature 99.9 F H 98.9 F 101.6 F H 12/11/16 12/11/16 12/12/16 14:00 22:00 02:05 Temperature 99.1 F 99.5 F 100.4 F H 12/12/16 12/12/16 12/12/16 06:00 09:00 17:00 Temperature 99 F 97.8 F 98.8 F 12/13/16 12/13/16 12/13/16 14:01 18:00 22:00 Temperature 99.5 F 100.7 F H 99.8 F H 12/14/16 12/14/16 12/14/16 02:00 05:37 17:15 Temperature 98 F 98.4 F 99.5 F 12/15/16 12/15/16 12/16/16 00:59 10:00 06:15 Temperature 98.6 F 98.2 F 98.4 F 12/16/16 12/17/16 12/17/16 22:00 10:38 18:00 Temperature 98.7 F 98.0 F 98.5 F 12/18/16 12/19/16 12/19/16 14:50 05:58 10:18 Temperature 98.1 F 98.3 F 98.1 F 12/20/16 12/20/16 05:55 08:44 Temperature 99.1 F 99.8 F H Laboratory Tests 12/19/16 12/20/16 12/20/16 15:45 06:00 06:00 WBC 16.6 H Hgb 10.7 Hct 32.9 Plt Count 206 Sodium 154 H Potassium 3.9 Chloride 113 H Anion Gap 9 BUN 6 L Random Glucose 168 H Calcium 7.9 L Total Bilirubin 11.3 H Direct Bilirubin 9.4 H AST 266 H ALT 54 Alkaline Phosphatase 685 H Peritoneal WBC 120 Peritoneal RBC 1,454 Periton Neutrophils 17 Periton Lymphocytes 40 Peritoneal Monocytes 16 Periton Mesothelial 15 Periton Macrophages 12 Peritoneal Tot Protein 1 Peritoneal Albumin 0 Peritoneal LDH 129 Peritoneal Glucose 196 Peritoneal Amylase 23 HOSPITAL COURSE: Date of Admission:12/11/16 Date of Discharge: 12/20/16 46 year old F with a PMH of metastatic breast cancer diagnosed in 05/2016 presented to the ER with chest pain and SOB. In the ED she was found to have hypernatremia, transaminitis, and progression of her disease despite being on chemotherapy. She was admitted for further workup. During her hospital admission, CTA, EKG, and trops were done. [place] as well as PE were ruled out as a cause of her chest pain and SOB. These were most likely due to her lung metastases. Patient was medically managed for her hypernatremia. She underwent brain MRI on 12/12 and was found to have metastasis to her brain. In addition, patient developed malignant ascites as her LFT's worsened. Patient underwent MRCP on 12/16 and was found to have increased tumor burden with no biliary obstruction. She originally was being managed on PO lasix for the ascites, but was enduring significant pain. On 12/19, patient underwent a therapeutic paracentesis, which helped alleviate her pain. Peritoneal lab values are above. Palliative care and oncology have discussed with the patient multiple times about her poor prognosis. Patient would like to undergo a third opinion from Dr. Landa. Patient discharged to f/u outpatient directly with her primary oncologist (Dr. Loza) today. Minutes to complete discharge: 30 Discharge Summary Reason For Visit: HYPEBILIRABINEMIA, BREAST CA, DEHYDRATION, Current Active Problems Abnormal liver function (Acute) Chest pain (Acute) Dehydration (Acute) Generalized weakness (Acute) Hyperbilirubinemia (Acute) Lung metastases (Acute) Metastatic breast cancer (Acute) Condition: Guarded - Instructions Diet, Activity, Other Instructions: Information about this visit will be sent to Dr. Landa's office as you requested for another opinion. You have an appointment with Dr. Loza today, upon discharge please see him in his [place] office at [address] [place] [phone] in [place]. He is expecting you. Discuss with Dr. Loza the plan regarding the progression of your disease. Call [phone] if you are unable to go today. Take lactulose 3 times per day. If you have chest pain, trouble breathing, fever, or any new symptoms return to the hospital. Referrals: Casper Pelaez MD [Primary Care Provider] - Disposition: HOME - Home Medications Comprehensive Discharge Medication List: Ambulatory Orders Lactulose (Oral Use) [Cephulac -] 20 gm PO TID PRN #420 ml 12/20/16 This patient is new to me today: No Emergency Visit: No Critical Care patient: No - Discharge Referral Referred to [facility] Med P.C.: No
[2016-12-20 14:17] VITALS: BP 117/68; TEMP 98.4
--- NOTE | 2016-12-20 14:39 | PN ---
Teaching Attending Note Name of Resident: Abad Adams ATTENDING PHYSICIAN STATEMENT I saw and evaluated the patient. I reviewed the resident's note and discussed the case with the resident. I agree with the resident's findings and plan as documented. SUBJECTIVE:abdominal pain improved OBJECTIVE: Vital Signs Temperature 98.4 F 12/20/16 14:16 Pulse Rate 113 H 12/20/16 08:44 Respiratory Rate 18 12/20/16 14:16 Blood Pressure 117/68 12/20/16 14:16 O2 Sat by Pulse Oximetry (%) 94 L 12/19/16 21:00 positive for jaundice abdominal distention, mild ascitis, ruq tenderness CBC, BMP 12/20/16 06:00 12/20/16 06:00 ASSESSMENT AND PLAN: 46 yearold female with metastatic breast cancer diagnosed in 05/27 which has progressed despite chemotherapy and now resulted in extensive liver involvement /ascitis and newly diagnosed brain mets. She underwent palliative thoracenthesis on this admission with mild improvement of her pain . I had an extensive discussion with patient regarding poor prognosis and deborah risk of further decompensation At this time patient is medically optimized and wants to follow with her oncologist
--- NOTE | 2016-12-21 13:27 | PATH ---
Cytology Non-Gynecological Report Patient Name: DARREN SPIVEY [facility]. Rec. #: [id number] /Age/Gender: 1970 (Age: 46) / F Account: [id number] Location: [facility] MED/SURG Taken: 12/20/2016 Received: 12/20/2016 Reported: 12/21/2016 Physicians: Oma Jesus M.D. Specimen(s) Received PERITONEAL FLUID ASCITES R.L.Q. Clinical History Right lower quadrant ascites Final Diagnosis ABDOMINAL FLUID, RIGHT LOWER QUADRANT, PARACENTESIS: SATISFACTORY FOR EVALUATION BENIGN (NO MALIGNANT CELLS IDENTIFIED) HYPOCELLULAR SPECIMEN WITH MESOTHELIAL CELLS AND LYMPHOCYTES PRESENT. Comment: Recommend correlation with clinical findings and follow up as clinically indicated. Electronically Signed Stewart Li M.D. Gross Description A. Approximately 50 cc of yellow fluid received fixed in 50% alcohol. One cytofunnel and one cellblock prepared. B. Approximately 4000 cc of yellow fluid received fresh. One cytofunnel and one cellblock prepared.
== END 2016-12-20 14:53 | disposition home or self-care (01) | DRG 180 ==
LOC: JER 02:07 → JERBED 06:20 → J4W 13:42 → J7W 12-13 13:42
PROVIDERS: ADMIT Internal Medicine; ATTEND Internal Medicine
PROC: 0W9G3ZX Drainage of Peritoneal Cavity, Percutaneous Approach, Diagnostic (ICD-10-PCS; principal; 2016-12-19)
PROC: 30233L1 Transfusion of Nonautologous Fresh Plasma into Peripheral Vein, Percutaneous Approach (ICD-10-PCS; 2016-12-19)
PROC: 30233K1 Transfusion of Nonautologous Frozen Plasma into Peripheral Vein, Percutaneous Approach (ICD-10-PCS; 2016-12-19)
DX: C78.02 Secondary malignant neoplasm of left lung (principal); G92 Toxic encephalopathy; E87.0 Hyperosmolality and hypernatremia; C78.7 Secondary malignant neoplasm of liver and intrahepatic bile duct; C79.31 Secondary malignant neoplasm of brain; D68.9 Coagulation defect, unspecified; C79.51 Secondary malignant neoplasm of bone; R18.0 Malignant ascites; E87.1 Hypo-osmolality and hyponatremia; R07.9 Chest pain, unspecified; C78.01 Secondary malignant neoplasm of right lung; E86.0 Dehydration; R74.0 Nonspecific elevation of levels of transaminase and lactic acid dehydrogenase [LDH]; C50.919 Malignant neoplasm of unspecified site of unspecified female breast; R41.0 Disorientation, unspecified; R50.9 Fever, unspecified; E83.51 Hypocalcemia; R53.1 Weakness; E80.6 Other disorders of bilirubin metabolism; E83.39 Other disorders of phosphorus metabolism; D63.8 Anemia in other chronic diseases classified elsewhere; D72.829 Elevated white blood cell count, unspecified; D72.825 Bandemia; E87.6 Hypokalemia; D69.6 Thrombocytopenia, unspecified; D70.9 Neutropenia, unspecified; B37.9 Candidiasis, unspecified; R06.02 Shortness of breath
CPT/HCPCS: 36415; 36430; 70450-TC; 70552-TC; 71020-TC; 71250-TC; 71275-TC; 74177-TC; 74181-TC; 76942-TC; 80048; 80053; 80076; 81003; 81015; 82042; 82140; 82150; 82550; 82945; 83615; 83735; 83880; 83930; 84100; 84157; 84295; 84484; 85025; 85027; 85384; 85610; 85730; 86850; 86900; 86901; 87040; 87070; 87075; 87086; 87102; 87116; 87205; 87206; 87210; 87899; 88108; 88305-TC; 89051; 93005; 93010; 93306-TC; 93970-TC; 97116-GP; 97162-GP; 99285-25; J1447; P9017

== ENCOUNTER 2016-12-23 00:02 | Emergency (ER) | payer OTHER ==
[2016-12-23 01:33] VITALS: BP 145/75; PULSE 109; TEMP 97.5; BMI 69.0
[2016-12-23] MEDS ORDERED: HYDROmorphone HCL 2 MG TABLET PO ONE (01:46)
[2016-12-23] MEDS ORDERED: NYSTATIN 500,000 UNITS/5 ML SUSPENSION PO ONE (01:46)
[2016-12-23] MEDS ORDERED: FLUCONAZOLE 50 MG TABLET PO ONE (01:47)
[2016-12-23] MEDS ORDERED: FLUCONAZOLE 100 MG TABLET (UD) ONE (01:56)
[2016-12-23] MEDS ORDERED: HYDROmorphone HCL 2 MG TABLET ONE (01:56)
--- NOTE | 2016-12-23 01:56 | PDOC ---
History of Present Illness - General Chief Complaint: Pain, Acute Stated Complaint: PAIN Time Seen by Provider: 12/23/16 01:16 History Source: Patient, Family, Geodetic Engineer Used Exam Limitations: Language Barrier - History of Present Illness Initial Comments: 12/23/16 01:48 46yo Female patient w/ PmHx: Liver CA with Mets to Lungs diagnosed 2015 presented to ED c/o abdominal pain. Family states patient having trouble with bowel movements. They reports she was seen in this ED yesterday and given medications for bowel movement, which patient took in this ED today upon arrival. Patient had BM, feels much better and is requesting to go home. Last chemo/radiation- [address] Pelaez Hematology/Oncology ([facility]) , . Patient not on Hospice, but sons say she is requesting to stay home without nursing help. Patient and Family deny any other complaints at this time. Timing/Duration: unsure Severity: moderate Modifying Factors: improves with: medication Associated Symptoms: denies: denies symptoms, chest pain, cough, diaphoresis, fever/chills, headaches, loss of appetite, malaise, nausea/vomiting, rash, seizure, shortness of breath, syncope, weakness, other Aspirin Received prior to arrival: No: no aspirin today, unknown, 81 mg x 1, 81 mg x 2, 81 mg x 3, 81 mg x 4, 325 mg x 1, provided at home, provided by EMS, provided by ED [facility] Contraindications(Core Measure): No: Allergy, Other, Active Blding w/i 24 hrs., Plavix, Receiving Warfarin Past History - Travel Traveled outside of the country in the last 30 days: No Close contact w/someone who was outside of country & ill: No - Past Medical History Allergies/Adverse Reactions: Allergies Allergy/AdvReac Type Severity Reaction Status Date / Time No Known Allergies Allergy Unverified 12/23/16 01:14 Home Medications: Ambulatory Orders Lactulose (Oral Use) [Cephulac -] 20 gm PO TID PRN #420 ml 12/20/16 Hydromorphone [Dilaudid -] 4 mg PO Q4H PRN #30 tablet MDD 6 tabs 12/23/16 Nystatin Oral Suspension - [Nystatin Oral Susp 573888 Units/5 ML -] 500,000 units PO Q6H #200 ml 12/23/16 Cancer: Yes (Lung CA & breast) Lung CA: Yes - Immunization History Immunization Up to Date: No - Psycho/Social/Smoking Cessation Hx Anxiety: No Suicidal Ideation: No Smoking History: Unknown if ever smoked Have you smoked in the past 12 months: No Information on smoking cessation initiated: No Hx Alcohol Use: No Drug/Substance Use Hx: No Substance Use Type: None Review of Systems - Review of Systems Able to Perform ROS?: Yes Is the patient limited Taiwanese proficient: No Constitutional: No: Chills, Fever ABD/GI: Yes: Abdominal Distended, Constipated, Nausea, Poor Appetite, Vomiting, Abdominal cramping. No: Diarrhea, Poor Fluid Intake All Other Systems: Reviewed and Negative *Physical Exam - Vital Signs Last Vital Signs Temp Pulse Resp BP Pulse Ox 97.5 F L 109 H 18 145/75 96 12/23/16 01:14 12/23/16 01:14 12/23/16 01:14 12/23/16 01:12/23/16 01:14 - Physical Exam General Appearance: Yes: Appropriately Dressed, Mild Distress, Other (Jaundice) . No: Apparent Distress, Moderate Distress, Severe Distress HEENT: positive: EOMI, LUIS A, Normal Voice, Symmetrical, TMs Normal, Scleral Icterus (R), Scleral Icterus (L), Pharyngeal Erythema, Other (White thick cottage cheese colony to pharynx with moderate erythema). negative: Normal ENT Inspection, Pharynx Normal, TM Bulging, TM Dull, TM Erythema Neck: positive: Trachea midline, Supple. negative: Lymphadenopathy (R), Lymphadenopathy (L) Respiratory/Chest: positive: Lungs Clear, Normal Breath Sounds. negative: Respiratory Distress, Accessory Muscle Use, Labored Respiration, Rapid RR, Rales , Stridor, Wheezing Cardiovascular: positive: Tachycardia Gastrointestinal/Abdominal: positive: Soft, Decreased BS, Distended. negative: Guarding, Rebound, Tenderness Musculoskeletal: positive: Normal Inspection. negative: CVA Tenderness Extremity: positive: Normal Capillary Refill, Normal Inspection, Normal Range of Motion, Pedal Edema, Swelling. negative: Calf Tenderness, Erythema, Inflammation Integumentary: positive: Dry, Warm, Jaundice, Ecchymosis, Bruising. negative: Erythema, Cold Neurologic: positive: school occupational therapist II-XII NML intact, Fully Oriented, Alert, Normal Mood/ Affect, Normal Response, Motor Strength 5/5 *DC/Admit/Observation/Transfer Diagnosis at time of Disposition: Liver metastasis, Oral candidiasis Lung metastases Qualifiers: Laterality: unspecified laterality Qualified Code(s): C78.00 - Secondary malignant neoplasm of unspecified lung - Discharge Dispostion Disposition: HOME Condition at time of disposition: Stable Admit: No - Prescriptions Prescriptions: Hydromorphone [Dilaudid -] 4 mg PO Q4H PRN #30 tablet MDD 6 tabs PRN Reason: Severe Pain Nystatin Oral Suspension - [Nystatin Oral Susp [id number] Units/5 ML -] 500,000 units PO Q6H #200 ml - Patient Instructions Printed Discharge Instructions: DI for Thrush, Nystatin Additional Instructions: Take medications as prescribed. Dilaudid for pain not relieved by normal pain medications. If symptoms do not improve, please return. You should look to have your mother admitted to hospice for comfort care. Alot of symptoms your mother is experiencing can be managed by hospice nurse at home around family. If you need help with this please contact hospital. [place] los medicamentos segn lo prescrito. Dilaudid para el dolor no aliviado por los medicamentos normales para el dolor. Si los sntomas no mejoran, por favor regrese. Usted debe buscar que hunter madre sea admitida en un hospicio para recibir atencin de confort. Muchos de los sntomas de hunter madre est experimentando puede ser manejado por la enfermera de hospicio en casa alrededor de la katherine. Si necesita ayuda con esto, comunquese con el hospital. Print Language: ETHIOPIAN
== END 2016-12-23 02:19 | disposition home or self-care (01) ==
LOC: JER 00:02
DX: C22.8 Malignant neoplasm of liver, primary, unspecified as to type (principal); C78.00 Secondary malignant neoplasm of unspecified lung; C79.81 Secondary malignant neoplasm of breast; B37.0 Candidal stomatitis
CPT/HCPCS: 99281-25; 99283-25

== ENCOUNTER → 2016-12-27 | Emergency (ER) | payer OTHER ==
[~2016-12-27] MED LIST: CEFOTAXIME SODIUM 500 MG VIAL (RESTRICTED TO ID) IVPUSH ONE; HYDROmorphone HCL 2 MG TABLET ONE; morphine CARPU-JECT 4 MG/1 ML DISP.SYRIN IVPUSH ONE; morphine CARPU-JECT 4 MG/1 ML DISP.SYRIN ONE
[2016-12-27 12:07] VITALS: BMI 32.3
--- NOTE | 2016-12-27 12:29 | PDOC ---
History of Present Illness - General Chief Complaint: Shortness of Breath Stated Complaint: ABD PAIN Time Seen by Provider: 12/27/16 12:04 History Source: Patient, Family - History of Present Illness Timing/Duration: other Associated Symptoms: denies: chest pain, cough, fever/chills, headaches, nausea/ vomiting Past History - Past Medical History Allergies/Adverse Reactions: Allergies Allergy/AdvReac Type Severity Reaction Status Date / Time No Known Allergies Allergy Unverified 12/27/16 12:02 Home Medications: Ambulatory Orders Lactulose (Oral Use) [Cephulac -] 20 gm PO TID PRN #420 ml 12/20/16 Hydromorphone [Dilaudid -] 4 mg PO Q4H PRN #30 tablet MDD 6 tabs 12/23/16 Nystatin Oral Suspension - [Nystatin Oral Susp 822500 Units/5 ML -] 500,000 units PO Q6H #200 ml 12/23/16 Lactulose 30 gm PO ASDIR #420 ml 12/27/16 Cancer: Yes (Lung CA & breast) Lung CA: Yes - Immunization History Immunization Up to Date: No - Psycho/Social/Smoking Cessation Hx Anxiety: No Suicidal Ideation: No Smoking History: Unknown if ever smoked Have you smoked in the past 12 months: No Hx Alcohol Use: No Drug/Substance Use Hx: No Substance Use Type: None Review of Systems - Review of Systems Constitutional: No: Fever Respiratory: No: Cough Cardiac (ROS): No: Chest Pain ABD/GI: No: Constipated, Diarrhea, Nausea, Vomiting *Physical Exam - Vital Signs Last Vital Signs Temp Pulse Resp BP Pulse Ox 98 F 102 H 28 H 94/49 95 12/27/16 12:03 12/27/16 12:03 12/27/16 12:03 12/27/16 12:03 12/27/16 12:03 - Physical Exam Comments: 12/27/16 12:35 Chronically ill appearing and jaundiced General Appearance: Yes: Appropriately Dressed HEENT: positive: Scleral Icterus (R), Scleral Icterus (L) Neck: positive: Supple Respiratory/Chest: positive: Lungs Clear, Normal Breath Sounds. negative: Respiratory Distress Cardiovascular: positive: Regular Rate, S1, S2 Gastrointestinal/Abdominal: positive: Tender, Distended Extremity: positive: Pedal Edema Integumentary: positive: Dry, Warm Neurologic: positive: Fully Oriented, Alert, Normal Mood/Affect ED Treatment Course - LABORATORY CBC & Chemistry Diagram: 12/27/16 12:28 12/27/16 12:31 - RADIOLOGY Radiology Studies Ordered: Category Date Time Status CHEST X-RAY PORTABLE* [RAD] Stat Radiology 12/27/16 12:18 Ordered Medical Decision Making - Medical Decision Making 12/27/16 12:24 46-year-old female, history of brain cancer with metastases to brain, bone and liver w/ resultant malignant ascites, f/u with oncologist at [facility] and on chemotherapy, dilaudid and lactulose at home, status post recent admission for multiple complaints and underwent US guided paracentesis w/ >4 K fluid removal on 12/[address] Dillard, returns today with worsening ascites with abdominal discomfort times several days. Has chronic pedal edema which also appears to be worsening. Denies any chest pain, acute shortness of breath, nausea, vomiting, fever, chills, change to bowel movements or dysuria at this time See exam Malignant ascites S/p LVP, 8 days ago during admission Carlos chronically ill and jaundice w/ tight ascites and pedal edema -pain control -?abx -labs -IR -?admission 12/27/16 13:19 12/23/16 01:48 Leukocytosis of 22, was 16, on 12/20 when pt was discharged. Could be 2/2 tumor burden but SBP considered. I contacted pt's onc, Dr Pelaez at [facility] [phone], agrees that elevated wbc could be 2/2 tumor but deferring management to ED. States pt recently agrees to home hospice and that arrangement is in progress but that if pt is admitted, that inpt team attempt to expedite hospice arrangement. 12/27/16 16:41 Pt s/p LVP w/ Dr Dillard. Reports feeling better at this time but does report some residual pain. Dilaudid given as pt on meds at home. Pt stable for discharge in care of family to continue f/u with onc for home hospice set up 12/27/16 17:08 *DC/Admit/Observation/Transfer Diagnosis at time of Disposition: Metastatic breast cancer, Malignant ascites - Discharge Dispostion Disposition: HOME Condition at time of disposition: Improved - Prescriptions Prescriptions: Lactulose 30 gm PO ASDIR #420 ml - Referrals Referrals: Casper Beckman MD [Primary Care Provider] - - Patient Instructions Additional Instructions: Please continue to follow-up with your oncologist for home hospice set up. Please continue follow-up with your PMD
[2016-12-27 12:37] LABS: MCH 28.9 pg (25.7-33.7); MCHC 32.4 g/dl (32.0-36.0); MEAN CELL VOLUME 89.1 fl (80-96); PLATELET COUNT 235 K/MM3 (134-434); RDW 28.9 % (11.6-15.6); WHITE BLOOD COUNT 22.2 K/mm3 (4.0-10.0)
--- NOTE | 2016-12-27 12:49 | EKG ---
Test Reason : Blood Pressure : / mmHG Vent. Rate : 104 BPM Atrial Rate : 104 BPM P-R Int : 134 ms QRS Dur : 080 ms QT Int : 386 ms P-R-T Axes : 030 -14 013 degrees QTc Int : 507 ms SINUS TACHYCARDIA POOR R WAVE PROGRESSION ACROSS THE PRECORDIAL LEADS. T WAVE INVERSION IN RIGHT PRECDIAL LEADS. ABNORMAL ECG WHEN COMPARED WITH ECG OF 11-DEC-2016 06:04, LOSS R WAVES IN V4 TO V6 REPEAT INDICATED Confirmed by PRANAV ASHLEY MD ([id number]) on 12/27/2016 12:48:56 PM Referred By: Confirmed By:PRANAV ASHLEY MD
--- NOTE | 2016-12-27 12:51 | PDOC ---
*Physical Exam - Vital Signs Last Vital Signs Temp Pulse Resp BP Pulse Ox 98 F 102 H 28 H 94/49 95 12/27/16 12:03 12/27/16 12:03 12/27/16 12:03 12/27/16 12:03 12/27/16 12:03 ED Treatment Course - LABORATORY CBC & Chemistry Diagram: 12/27/16 12:28 12/27/16 12:28 - ADDITIONAL ORDERS Additional order review: Laboratory Results 12/27/16 12:28 Sodium Cancelled Potassium Cancelled Chloride Cancelled Carbon Dioxide Cancelled Anion Gap Cancelled BUN Cancelled Creatinine Cancelled Creat Clearance w eGFR Cancelled Random Glucose Cancelled Calcium Cancelled Total Bilirubin Cancelled AST Cancelled ALT Cancelled Alkaline Phosphatase Cancelled Creatine Kinase Cancelled Troponin I Cancelled Total Protein Cancelled Albumin Cancelled Lipase Cancelled - Medications Given in the ED: ED Medications Discontinued Medications Generic Name Dose Route Start Last Admin Trade Name Freq PRN Reason Stop Dose Admin Morphine Sulfate 4 mg 12/27/16 12:37 12/27/16 12:44 Morphine Injection - IVPUSH 12/27/16 12:38 Not Given ONCE ONE Medical Decision Making - Medical Decision Making 12/27/16 12:50 Patient seen and evaluated with the nurse practitioner. I agree with the overall evaluation, assessment, and management with the following summary of visit: 46-year-old female with history of metastatic breast CA complicated by recurring ascites requiring large volume paracentesis last performed on 12/19 presents again with abdominal fullness for paracentesis. Vital signs as noted. Distended abdomen, otherwise soft. Agree with management as outlined, including labs and was consultation with IR for paracentesis. *DC/Admit/Observation/Transfer Diagnosis at time of Disposition: Metastatic breast cancer
[2016-12-27 13:01] LABS: ALBUMIN 1.3 g/dl (3.4-5.0); ANION GAP 11 (8-16); BILIRUBIN,TOTAL 13.8 mg/dL (0.2-1.0); CALCIUM 7.6 mg/dL (8.5-10.1); CO2 27 mmol/L (21-32); CREATININE 0.9 mg/dL (0.55-1.02); GLUCOSE,RANDOM 225 mg/dL (74-106); SGPT/ALT 52 U/L (12-78)
[2016-12-27 13:04] LABS: ALK PHOS 801 U/L (45-117); TOT PROT 4.6 g/dl (6.4-8.2); TROPONIN I < 0.02 ng/ml (0.00-0.05)
[2016-12-27 13:06] LABS: SGOT/AST 299 U/L (15-37)
[2016-12-27 13:23] LABS: INR 1.14 (0.82-1.09); PROTHROMBIN TIME (PATIENT) 12.6 SEC (9.98-11.88)
[2016-12-27 14:19] LABS: URINE APPEARANCE CLEAR; URINE BILIRUBIN NEGATIVE (NEGATIVE); URINE BLOOD NEGATIVE (NEGATIVE); URINE COLOR AMBER; URINE GLUCOSE (UA) NEGATIVE (NEGATIVE); URINE KETONE NEGATIVE (NEGATIVE); URINE LEUK ESTERASE NEGATIVE (NEGATIVE); URINE NITRITE NEGATIVE (NEGATIVE); URINE PROTEIN NEGATIVE (NEGATIVE); URINE UROBILINOGEN 4.0 E.U/dl mg/dL (0.2-1.0)
[2016-12-27 18:41] VITALS: BP 86/48; PULSE 89; TEMP 98.4
[2016-12-27 19:40] LABS: ANISOCYTOSIS 3+
== END | disposition home or self-care (01) ==
LOC: JER 11:53
DX: R18.0 Malignant ascites (principal); Z85.3 Personal history of malignant neoplasm of breast; Z85.841 Personal history of malignant neoplasm of brain; Z85.118 Personal history of other malignant neoplasm of bronchus and lung
CPT/HCPCS: 36415; 71010-TC; 76942-TC; 80053; 81003; 82550; 83690; 83880; 84484; 85025; 85610; 93005; 93010; 99283-25

== ENCOUNTER 2016-12-30 15:31 | Emergency (ER) | payer OTHER ==
[2016-12-30 15:41] VITALS: BMI 30.2
--- NOTE | 2016-12-30 15:59 | PDOC ---
History of Present Illness - General Chief Complaint: Shortness of Breath Stated Complaint: SHORTNESS OF BREATH Time Seen by Provider: 12/30/16 15:34 - History of Present Illness Initial Comments: 12/30/16 15:59 46-year-old female with history of metastatic breast CA complicated by malignant ascites requiring large volume paracentesis last performed on 12/26 presents again with abdominal fullness for paracentesis and shortness of breath.. The patient and her family came with a letter from Ashlyn Fernandez, the Hospice Nurse at [facility] asking on behalf of the family to consider placing a permanent catheter as her condition is worsening and the need for pericentesis is increasing in frequency and becoming unmanageable as it is. 12/30/16 16:15 Past History - Past Medical History Allergies/Adverse Reactions: Allergies Allergy/AdvReac Type Severity Reaction Status Date / Time No Known Allergies Allergy Verified 12/30/16 15:38 Home Medications: Ambulatory Orders Lactulose (Oral Use) [Cephulac -] 20 gm PO TID PRN #420 ml 12/20/16 Hydromorphone [Dilaudid -] 4 mg PO Q4H PRN #30 tablet MDD 6 tabs 12/23/16 Nystatin Oral Suspension - [Nystatin Oral Susp [id number] Units/5 ML -] 500,000 units PO Q6H #200 ml 12/23/16 Lactulose 30 gm PO ASDIR #420 ml 12/27/16 Cancer: Yes (Lung CA & breast) Lung CA: Yes - Immunization History Immunization Up to Date: No - Psycho/Social/Smoking Cessation Hx Anxiety: No Suicidal Ideation: No Smoking History: Never smoked Have you smoked in the past 12 months: No Hx Alcohol Use: No Drug/Substance Use Hx: No Substance Use Type: None Review of Systems - Review of Systems Able to Perform ROS?: Yes (with difficulty) Respiratory: Yes: SOB at Rest (from ascites pressure) Cardiac (ROS): No: Symptoms Reported ABD/GI: Yes: Abdominal Distended : No: Symptoms Reported Musculoskeletal: No: Symptoms Reported *Physical Exam - Vital Signs Last Vital Signs Temp Pulse Resp BP Pulse Ox 98.7 F 88 18 86/53 95 12/30/16 15:36 12/30/16 15:36 12/30/16 15:36 12/30/16 15:36 12/30/16 15:36 - Physical Exam General Appearance: Yes: Moderate Distress (extreme jaudice, sick looking.) Respiratory/Chest: positive: Labored Respiration, Rales Medical Decision Making - Medical Decision Making 12/30/16 16:27 46-year-old female with history of metastatic breast CA complicated by recurring malignant ascites came to ed with request from Hospice to get permanent catheter placement. Talked to Dr. Queen who agreed to do procedure on Monday. Patient will be discharged, talked to telephonic nurse case manager Betzaida Calzada who arranged an ambulance to take the patient back to the hospital on Monday for placement of permanent catheter by dr. Queen. 12/30/16 17:54 Patient *DC/Admit/Observation/Transfer Diagnosis at time of Disposition: Malignant ascites, Liver metastasis, Metastatic breast cancer - Discharge Dispostion Admit: Yes
--- NOTE | 2016-12-30 16:45 | PDOC ---
Attending Attestation - Resident Resident Name: Julio Cesar Barrett - ED Attending Attestation I have performed the following: I have examined & evaluated the patient, The case was reviewed & discussed with the resident, I agree w/resident's findings & plan, Exceptions are as noted - HPI HPI: 12/30/16 17:17 46y F hx of metastatic breast ca complicated by malignant acites s/p large volume paracentesis on 12/26 presents with abd fullness and sob. pt was sent by her hospice facility for placement of permanent drainage catheter. on exam pt apperas jaundced. abd is full/ditended, +fluid wave, but soft and nontender. pts vitals noted for mild hyptension, but c/w her baseline unable for IR to place as they are not in the facility currently will hvae pt schedule outpatient appointment for procedure. antonio machine adjuster leader case trim and will get pt the information for appt. - Physicial Exam PE: 12/31/16 17:54 see above - Medical Decision Making 12/31/16 17:54 see above
[2016-12-30 19:07] VITALS: BP 99/59; PULSE 88; TEMP 98.3
== END 2016-12-30 19:05 | disposition home or self-care (01) ==
LOC: JER 15:31
DX: R18.0 Malignant ascites (principal); C50.911 Malignant neoplasm of unspecified site of right female breast; C78.7 Secondary malignant neoplasm of liver and intrahepatic bile duct; C78.00 Secondary malignant neoplasm of unspecified lung
CPT/HCPCS: 99282-25

== ENCOUNTER 2017-01-02 09:07 | Emergency (ER) | payer OTHER ==
[2017-01-02 09:23] VITALS: PULSE 88; TEMP 97.7; BMI 34.0
--- NOTE | 2017-01-02 09:27 | PDOC ---
Attending Attestation - HPI HPI: 01/02/17 10:16 The patient is a 46 year old female with a significant past medical history of metastatic breast cancer and malignant ascites who presents to the ED with weakness and SOB today. She states that the fluid in her abdomen exacerbates her SOB. She also states SOB is worse at night. History is limited. - Physicial Exam PE: 01/02/17 10:28 I agree with the residents physical exam. Large amount of ascites, making it difficult to breathe. <Alaina Lo - Last Filed: 01/02/17 10:28> - Resident Resident Name: Warren Moreira - ED Attending Attestation I have performed the following: I have examined & evaluated the patient, The case was reviewed & discussed with the resident, I agree w/resident's findings & plan, Exceptions are as noted - Medical Decision Making 01/05/17 10:18 I agree with the residents assessment and plan <Qasim Amin - Last Filed: 01/05/17 10:18>
--- NOTE | 2017-01-02 10:02 | PDOC ---
History of Present Illness - General Chief Complaint: Pain, Acute Stated Complaint: Weakness Time Seen by Provider: 01/02/17 09:21 History Source: Patient Exam Limitations: Clinical Condition, Language Barrier - History of Present Illness Initial Comments: 01/02/17 09:57 Patient is a 46F with history of metastatic breast cancer on hospice and malignant ascites here today complaining of weakness and shortness of breath. History is limited both by patient's condition and a language barrier. Her son is a source of history as well. She states that the fluid in her abdomen is growing making it harder for her to breath. The shortness of breath is worse at night. She denies fevers and chills. She says she has had non-billious, non- bloody emesis. She endorses widespread, systemic pain that she sometimes takes hydromorphone for. She denies diarrhea and constipation, she has not been taking her lactulose. Past History - Past Medical History Allergies/Adverse Reactions: Allergies Allergy/AdvReac Type Severity Reaction Status Date / Time No Known Allergies Allergy Verified 12/30/16 15:38 Home Medications: Ambulatory Orders Lactulose (Oral Use) [Cephulac -] 20 gm PO TID PRN #420 ml 12/20/16 Hydromorphone [Dilaudid -] 4 mg PO Q4H PRN #30 tablet MDD 6 tabs 12/23/16 Nystatin Oral Suspension - [Nystatin Oral Susp 879034 Units/5 ML -] 500,000 units PO Q6H #200 ml 12/23/16 Lactulose 30 gm PO ASDIR #420 ml 12/27/16 Cancer: Yes (Lung CA & breast) Lung CA: Yes - Immunization History Immunization Up to Date: No - Psycho/Social/Smoking Cessation Hx Anxiety: No Suicidal Ideation: No Smoking History: Never smoked Have you smoked in the past 12 months: No Information on smoking cessation initiated: No Hx Alcohol Use: No Drug/Substance Use Hx: No Substance Use Type: None Review of Systems - Review of Systems Is the patient limited Albanian proficient: Yes Constitutional: Yes: Chills, Weakness. No: Fever HEENTM: No: Eye Pain, Recent change in vision Respiratory: Yes: Cough, Orthopnea, Shortness of Breath Cardiac (ROS): No: Chest Pain, Irregular Heart Rate ABD/GI: Yes: Abdominal Distended, Nausea, Vomiting. No: Constipated, Diarrhea : No: Burning, Dysuria Musculoskeletal: Yes: Muscle Pain Neurological: Yes: Headache *Physical Exam - Vital Signs Last Vital Signs Temp Pulse Resp BP Pulse Ox 97.7 F 88 22 88/57 96 01/02/17 09:19 01/02/17 09:19 01/02/17 09:19 01/02/17 09:19 01/02/17 09:19 - Physical Exam Comments: 01/02/17 10:04 Gen: Ill appearing jaundiced woman in moderate distress Lungs: Clear to auscultation bilaterally, increased work of breathing CV: Regular rate and rhythm, no murmurs rubs or gallops Abd: Distended, diffusely tender, positive fluid wave, positive bowel sounds, vertical scar below umbilicus Ext: 1+ pulses in lower extremities, diffuse nonpitting edema Head: Normocephalic atraumatic Eyes: Extraocular eye movement intact, jaundiced ED Treatment Course - LABORATORY CBC & Chemistry Diagram: 01/02/17 10:32 01/02/17 10:32 Medical Decision Making - Medical Decision Making 01/02/17 10:13 46F with history of metastatic breast cancer and malignant ascites here today complaining of shortness of breath and weakness. SOB is due to her ascites fluid. IR consulted and will do therapeutic paracentesis with plans for outpatient follow-up to place a pleurx catheter. 01/02/17 18:33 Pleurx catheter not placed, 3L taken off in a tap. Patient feels better, will discharge will plan to place pleurx catheter today. Labs grossly abnormal, consistent with her prior labs and disease process. Discharged to hospice, per patient wishes. *DC/Admit/Observation/Transfer Diagnosis at time of Disposition: Ascites Qualifiers: Ascites type: malignant Qualified Code(s): R18.0 - Malignant ascites - Discharge Dispostion Disposition: HOME Condition at time of disposition: Poor Admit: No - Patient Instructions Printed Discharge Instructions: DI for Ascites, DI for Abdominal Paracentesis - Attestations Physician Attestion: 01/02/17 17:50 I, Dr. Warren Moreira, attest that this document has been prepared under my direction and personally reviewed by me in its entirety. I further attest, that it accurately reflects all work, treatment, procedures and medical decision -making performed by me.
--- NOTE | 2017-01-02 10:48 | EKG ---
Test Reason : Blood Pressure : / mmHG Vent. Rate : 086 BPM Atrial Rate : 086 BPM P-R Int : 158 ms QRS Dur : 088 ms QT Int : 414 ms P-R-T Axes : 024 -08 000 degrees QTc Int : 495 ms NORMAL SINUS RHYTHM POSSIBLE ANTEROLATERAL INFARCT (CITED ON OR BEFORE 02-JAN-2017) ABNORMAL ECG WHEN COMPARED WITH ECG OF 27-DEC-2016 12:12, NO SIGNIFICANT CHANGE WAS FOUND Confirmed by SOCRATES LOPEZ, MIRTHA ([id number]) on 01/02/2017 10:47:51 AM Referred By: Confirmed By:MIRTHA CROWELL MD
[2017-01-02 10:51] LABS: MCH 28.8 pg (25.7-33.7); MCHC 31.8 g/dl (32.0-36.0); MEAN CELL VOLUME 90.8 fl (80-96); MEAN PLT VOLUME 11.3 fl (7.5-11.1); PLATELET COUNT 164 K/MM3 (134-434); RDW 24.4 % (11.6-15.6); WHITE BLOOD COUNT 18.3 K/mm3 (4.0-10.0)
[2017-01-02 11:10] LABS: ALBUMIN 1.1 g/dl (3.4-5.0); ALK PHOS 804 U/L (45-117); ANION GAP 13 (8-16); CALCIUM 7.2 mg/dL (8.5-10.1); CO2 25 mmol/L (21-32); CREATININE 1.2 mg/dL (0.55-1.02); GLUCOSE,RANDOM 67 mg/dL (74-106); SGPT/ALT 55 U/L (12-78); TOT PROT 4.7 g/dl (6.4-8.2)
[2017-01-02 11:11] LABS: INR 1.2 (0.82-1.09); PROTHROMBIN TIME (PATIENT) 13.2 SEC (9.98-11.88)
[2017-01-02 11:21] LABS: BILIRUBIN,TOTAL 18.5 mg/dL (0.2-1.0); SGOT/AST 319 U/L (15-37)
[2017-01-02 14:14] LABS: ANISOCYTOSIS 3+; HYPOCHROMIA 2+; MICROCYTOSIS FEW
[2017-01-02 14:15] LABS: TARGET CELLS 1+
[2017-01-02 18:18] VITALS: BP 82/52
== END 2017-01-02 18:18 | disposition home or self-care (01) ==
LOC: JER 09:07
PROC: 0W9G3ZZ Drainage of Peritoneal Cavity, Percutaneous Approach (ICD-10-PCS; principal; 2017-01-02)
PROC: BW40ZZZ Ultrasonography of Abdomen (ICD-10-PCS; 2017-01-02)
DX: R18.0 Malignant ascites (principal); C50.919 Malignant neoplasm of unspecified site of unspecified female breast; C78.00 Secondary malignant neoplasm of unspecified lung
CPT/HCPCS: 36415; 76942-TC; 80053; 82140; 85025; 85610; 85730; 87070; 87075; 87102; 87116; 87186; 87205; 87206; 87210; 93005; 93010; 99283-25

== ENCOUNTER 2017-01-05 14:53 | Inpatient (IN) | payer OTHER ==
--- NOTE | 2017-01-05 15:30 | PDOC ---
History of Present Illness - History of Present Illness Initial Comments: 01/05/17 15:38 The patient is a 46 year old female with history of metastatic breast cancer on hospice and malignant ascites who presents to the emergency department, [facility] with children, for progressive weakness and low blood pressure s/p recent discharge from ED on 01/02/17 for similar complaint. As per the patients children, their mother has been deteriorating over the past few days and states they are having a difficult time caring for her at home. The patients children deny having a home health aide and reports the patient lives in hospice at home. The patient reports pain to the middle of her abdomen. The patients daughter reports her mothers pain levels have increased, but when they give her pain medications, even half of the dosage, lowers her blood pressure significantly. The family is requesting the patient be admitted to a hospice facility where their mother can get the care they can not provide. Allergies: NKDA <Shannan Ta - Last Filed: 01/05/17 15:56> - General History Source: Patient, Family, Old Records Exam Limitations: Clinical Condition <Paz Singh - Last Filed: 01/05/17 16:29> - General Stated Complaint: CANCER Time Seen by Provider: 01/05/17 15:19 Past History <Shannan Ta - Last Filed: 01/05/17 15:56> - Past Medical History Cancer: Yes (Lung CA & breast) Lung CA: Yes - Immunization History Immunization Up to Date: No - Psycho/Social/Smoking Cessation Hx Anxiety: No Suicidal Ideation: No Smoking History: Never smoked Have you smoked in the past 12 months: No Hx Alcohol Use: No Drug/Substance Use Hx: No Substance Use Type: None <Paz Singh - Last Filed: 01/05/17 16:29> - Past Medical History Allergies/Adverse Reactions: Allergies Allergy/AdvReac Type Severity Reaction Status Date / Time No Known Allergies Allergy Verified 12/30/16 15:38 Home Medications: Ambulatory Orders Lactulose (Oral Use) [Cephulac -] 20 gm PO TID PRN #420 ml 12/20/16 Hydromorphone [Dilaudid -] 4 mg PO Q4H PRN #30 tablet MDD 6 tabs 12/23/16 Nystatin Oral Suspension - [Nystatin Oral Susp 393124 Units/5 ML -] 500,000 units PO Q6H #200 ml 12/23/16 Lactulose 30 gm PO ASDIR #420 ml 12/27/16 Review of Systems - Review of Systems Able to Perform ROS?: Yes Comments:: 01/05/17 15:38 GENERAL/CONSTITUTIONAL: (+) weakness. No fever or chills. HEAD, EYES, EARS, NOSE AND THROAT: No change in vision. No ear pain or discharge. No sore throat. CARDIOVASCULAR: No chest pain or shortness of breath. RESPIRATORY: No cough, wheezing, or hemoptysis. GASTROINTESTINAL: (+) abdominal pain. No nausea, vomiting, diarrhea or constipation. GENITOURINARY: No dysuria, frequency, or change in urination. MUSCULOSKELETAL: No joint or muscle swelling or pain. No neck or back pain. SKIN: No rash NEUROLOGIC: No headache, vertigo, loss of consciousness, or change in strength/ sensation. ENDOCRINE: No increased thirst. No abnormal weight change. HEMATOLOGIC/LYMPHATIC: No anemia, easy bleeding, or history of blood clots. ALLERGIC/IMMUNOLOGIC: No hives or skin allergy. <Shannan Ta - Last Filed: 01/05/17 15:56> *Physical Exam - Physical Exam Comments: 01/05/17 15:38 GENERAL: (+) Ill-appearing. Awake, alert, and fully oriented HEAD: No signs of trauma EYES: PERRLA, EOMI, sclera anicteric, conjunctiva clear ENT: Auricles normal inspection, hearing grossly normal, nares patent, oropharynx clear without exudates. Moist mucosa NECK: Normal ROM, supple, no lymphadenopathy, JVD, or masses LUNGS: Breath sounds equal, clear to auscultation bilaterally. No wheezes, and no crackles HEART: Regular rate and rhythm, normal S1 and S2, no murmurs, rubs or gallops ABDOMEN: (+) Abdomen is distended and tense. Soft, normoactive bowel sounds. No guarding, no rebound. No masses EXTREMITIES: Normal range of motion, no edema. No clubbing or cyanosis. No cords, erythema, or tenderness NEUROLOGICAL: Cranial nerves II through XII grossly intact. Normal speech, normal gait SKIN: (+) Jaundice. Warm, Dry, normal turgor, no rashes or lesions noted. <Shannan Ta - Last Filed: 01/05/17 15:56> Medical Decision Making - Medical Decision Making 01/05/17 15:57 Dr. Stark was paged at the office at this time requesting a call back regarding service admission. <Shannan Ta - Last Filed: 01/05/17 15:56> - Medical Decision Making 01/05/17 15:28 46 y/o female with h/o metastatic breast CA on home hospice brought to the ED with family who states that they cannot provide care for the patient at home and requests inpatient hospice.The patient also has malignant ascites and is scheduled to have a peritoneal drain placed tomorrow by IR. Plan: 1. Pain mangement 2. Social work consult 3. Observe and re-evaluate 01/05/17 16:25 Addendum: the case was discussed with case management as well as SW. The plan is to admit to treat her malignant effusion and manage her pain. <Paz Singh - Last Filed: 01/05/17 16:29> *DC/Admit/Observation/Transfer - Attestations Scribe Attestion: 01/05/17 15:39 Documentation prepared by Shannan Ta, acting as medical screener for Paz Singh MD <Shannan Ta - Last Filed: 01/05/17 15:56> - Discharge Dispostion Admit: Yes - Attestations Physician Attestion: 01/05/17 15:30 I, Dr. Paz Singh, attest that the scribes documentation that appears above has been prepared under my direction and personally reviewed by me in its entirety. I confirmed that the note above accurately reflects all work, treatment, procedures, and medical decision-making performed by me. <Paz Singh - Last Filed: 01/05/17 16:29> Diagnosis at time of Disposition: Metastatic breast cancer, Malignant ascites - Discharge Dispostion Condition at time of disposition: Stable
[2017-01-05 18:48] LABS: MCH 28.6 pg (25.7-33.7); MCHC 30.9 g/dl (32.0-36.0); MEAN CELL VOLUME 92.6 fl (80-96); MEAN PLT VOLUME 10.2 fl (7.5-11.1); PLATELET COUNT 145 K/MM3 (134-434); RDW 22.9 % (11.6-15.6); WHITE BLOOD COUNT 23.2 K/mm3 (4.0-10.0)
[2017-01-05 19:29] LABS: INR 1.28 (0.82-1.09); PROTHROMBIN TIME (PATIENT) 14.2 SEC (9.98-11.88)
[2017-01-05 19:32] LABS: ACTIVATED PTT 41.4 SECONDS (26.9-34.4)
[2017-01-05 19:42] LABS: ANION GAP 13 (8-16); CALCIUM 7.3 mg/dL (8.5-10.1); CO2 25 mmol/L (21-32); CREATININE 1.8 mg/dL (0.55-1.02); GLUCOSE,RANDOM 59 mg/dL (74-106); SGPT/ALT 66 U/L (12-78); TOT PROT 4.1 g/dl (6.4-8.2)
[2017-01-05 19:50] LABS: ALK PHOS 904 U/L (45-117)
[2017-01-05 20:04] LABS: HYPOCHROMIA 1+; PLATELET COMMENT2 NO CLOTTING DETECTED; PLATELET COMMENT3 FEW LARGE PLTS; PLATELET ESTIMATE SLT DECREASED (NORMAL); POIKILOCYTOSIS 2+; SMUDGE CELLS FEW
[2017-01-05 20:05] LABS: ANISOCYTOSIS 3+; FRAGMENTED CELL 1+; MICROCYTOSIS 1+
[2017-01-05 20:16] LABS: ALBUMIN 0.9 g/dl (3.4-5.0)
[2017-01-05 20:17] LABS: SGOT/AST 370 U/L (15-37)
[2017-01-05 20:18] LABS: BILIRUBIN,TOTAL 18.1 mg/dL (0.2-1.0)
[2017-01-05] MEDS ORDERED: LEVOFLOXACIN 500 MG IVPB 100 ML IVPB SCH (23:45)
[2017-01-05] MEDS ORDERED: DEXTROSE 5%-0.45% SALINE 1,000 ML IV SCH (23:45)
[2017-01-06] MEDS ORDERED: LEVOFLOXACIN 250 MG IVPB 50 ML IVPB SCH ×2 (00:30→20:00)
[2017-01-06] MEDS ORDERED: morphine CARPU-JECT 2 MG/1 ML DISP.SYRIN IVPB PRN ×2 (00:34→09:49)
[2017-01-06] MEDS ORDERED: ONDANSETRON 4 MG/2 ML VIAL IVPB PRN (00:35)
[2017-01-06] MEDS ORDERED: DEXTROSE 5%-0.45% SALINE 1,000 ML IV SCH ×2 (00:45→15:15)
[2017-01-06] MEDS ORDERED: LEVOFLOXACIN 500 MG IVPB 100 ML IVPB ONE (00:45)
[2017-01-06] MEDS: METRONIDAZOLE 500 MG PREMIXED 100 ML IVPB SCH ×3 (01:03→19:31)
--- NOTE | 2017-01-06 02:36 | RAPID ---
Physical Examination Vital Signs: Vital Signs Temperature 98 F 01/06/17 01:53 Pulse Rate 73 01/06/17 01:53 Respiratory Rate 20 01/06/17 01:53 Blood Pressure 62/33 01/06/17 01:53 O2 Sat by Pulse Oximetry (%) 99 01/05/17 22:17 Labs: CBC, BMP 01/05/17 18:20 01/05/17 18:20 Rapid Response - Rapid Response Assessment: Rapid Response was called because patient was found to be hypotensive with mild agitation. Patient's children at bedside and confirmed that patient is DNR/ DNI. When arriving patient's BP was 66/32, HR 72 BPM, and 02 of 96% on 2L NC. PHYSICAL EXAM: General: Full body Jaundice, mildly agitated and ill-appearing HEART: RRR LUNGS; Decreased breath sounds anteriorly ABDOMEN: Distended, firm, tenderness upon palpation of mid abdomen ASSESSMENT/PLAN: Patient is a 46 year old female with a PMHx of breast cancer with mets to the liver, lungs, bone, and brain with malignant ascites who was BIBA yesterday () for worsening hypotension and progressive deterioration for the last couple of days, as per patient's children. Patient's family report that she is currently in hospice at home and has recently signed a DNR/DNI. Patient's son at bedside, who is the health care proxy, signed the hospital DNR/DNI and would like comfort measures. PLAN: -Continue hospice care with Morphine PRN -Continue IV fluids -Continue Oxygen
[2017-01-06 07:26] LABS: MCH 29.4 pg (25.7-33.7); MCHC 31.6 g/dl (32.0-36.0); MEAN CELL VOLUME 92.8 fl (80-96); MEAN PLT VOLUME 10.6 fl (7.5-11.1); PLATELET COUNT 128 K/MM3 (134-434); RDW 22.2 % (11.6-15.6); WHITE BLOOD COUNT 19.6 K/mm3 (4.0-10.0)
[2017-01-06 08:48] LABS: ALK PHOS 937 U/L (45-117); ANION GAP 16 (8-16); CO2 24 mmol/L (21-32); CREATININE 2.4 mg/dL (0.55-1.02); SGPT/ALT 78 U/L (12-78); TOT PROT 3.9 g/dl (6.4-8.2)
[2017-01-06 09:10] LABS: ALBUMIN 0.8 g/dl (3.4-5.0)
[2017-01-06 09:12] LABS: BILIRUBIN,TOTAL 17.5 mg/dL (0.2-1.0); GLUCOSE,RANDOM 38 mg/dL (74-106)
[2017-01-06 09:13] LABS: SGOT/AST 598 U/L (15-37)
[2017-01-06 09:45] LABS: PLATELET ESTIMATE DECREASED (NORMAL)
--- NOTE | 2017-01-06 09:45 | PN ---
Progress Note (short form) - Note Progress Note: Consult called for metastatic cancer. Patient however is DNR/DNI, hypotensive and was on home hospice. Palliative care consult has been placed. Per the chart there are attempts being made to have her transferred to [place] [facility] for hospice, however, clinically it does not appear that she will be stable for transfer at this time. Patient's family requesting comfort care. The floor is attempting to reach Dr. Stark the PMD for continued orders re: pain management. Will defer consult at this time.
[2017-01-06] MEDS ORDERED: LACTULOSE 20 GM/30 ML UDC (FOR ORAL USE ONLY) PO SCH (10:00)
[2017-01-06] MEDS ORDERED: LACTULOSE 20 GM PO SCH (10:00)
--- NOTE | 2017-01-06 11:46 | HP ---
Admitting History and Physical - Past Medical History Heme/Onc: Yes: Cancer (Metastatic BCA) - Past Surgical History Past Surgical History: Yes: - Smoking History Smoking history: Never smoked Have you smoked in the past 12 months: No Aproximately how many cigarettes per day: 0 - Alcohol/Substance Use Hx Alcohol Use: No History of Substance Use: reports: None - Social History ADL: Family Assistance History of Recent Travel: No Home Medications - Allergies Allergies/Adverse Reactions: Allergies Allergy/AdvReac Type Severity Reaction Status Date / Time No Known Allergies Allergy Verified 12/30/16 15:38 - Home Medications Home Medications: Ambulatory Orders Lactulose 30 gm PO ASDIR #420 ml 12/27/16 Hydromorphone 01/05/17 Family Disease History - Family Disease History Family Disease History: Other: Sister (Leukemia), Son (x 2, 1 with skin cancer) Physical Examination Vital Signs: Vital Signs Temperature 97.4 F L 01/06/17 06:37 Pulse Rate 62 01/06/17 06:37 Respiratory Rate 22 01/06/17 06:37 Blood Pressure 58/32 01/06/17 06:37 O2 Sat by Pulse Oximetry (%) 99 01/05/17 22:17 Labs: CBC, BMP 01/06/17 06:00 01/06/17 06:00
[2017-01-06] MEDS ORDERED: MORPHINE 100 MG in SODIUM CHLORIDE 98 ML IVPB SCH (12:00)
[2017-01-06] MEDS ORDERED: LORAZEPAM CARPU-JECT 2 MG/ML DISP.SYRIN IVPUSH PRN (12:02)
[2017-01-06] MEDS ORDERED: HEPARIN NA (PORCINE) 5,000 UNITS/ML 1ML VIAL SQ SCH (22:00)
[2017-01-07 06:24] VITALS: BP 64/35; PULSE 70; TEMP 97
--- NOTE | 2017-01-07 09:22 | HOSP ---
Subjective - Review of Symptoms Events since last encounter: Called because pt was found not to be breathing and with no pulse. Pt was examined at bedside. Pupils were fixed, dilated, and nonreactive to light. Corneal reflex was absent, pt was without pulse. Ascultation revealed absence of any heart or lung sounds. Pt was pronounced at 8:56am 01/07/2017. Family was notified at bedside. A call was placed to Dr. Stark. Pt's family denied autopsy. Physical Examination Vital Signs: Labs: CBC, BMP 01/06/17 06:00 01/06/17 06:00 Visit type - Emergency Visit Emergency Visit: No - New Patient This patient is new to me today: No - Critical Care Critical Care patient: No
== END 2017-01-07 11:31 | disposition expired | DRG 598 ==
LOC: JER 14:53 → JERBED 16:24 → J7W 21:10
PROVIDERS: ADMIT Internal Medicine; ATTEND Internal Medicine
DX: C50.919 Malignant neoplasm of unspecified site of unspecified female breast (principal); C78.7 Secondary malignant neoplasm of liver and intrahepatic bile duct; C78.02 Secondary malignant neoplasm of left lung; C78.01 Secondary malignant neoplasm of right lung; C79.51 Secondary malignant neoplasm of bone; C79.31 Secondary malignant neoplasm of brain; R18.0 Malignant ascites; I95.9 Hypotension, unspecified
CPT/HCPCS: 36415; 80053; 85025; 85610; 85730; 99283-25